=== PATIENT | female | born 1935 | race Caucasian/White ===

== ENCOUNTER → 2023-08-16 08:54 | Outpatient (REF) | payer MEDICARE, SELFPAY ==
[2023-08-16 19:36] LABS: Blood Urea Nitrogen 17 mg/dl (7-17); Calcium 9.5 mg/dl (8.4-10.2); Carbon Dioxide 25 mmol/L (22-30); Chloride 101 mmol/L (98-107); Glucose 86 mg/dl (70-99); Potassium 4.2 mmol/L (3.5-5.1); Sodium 136 mmol/L (135-145); eGFR > 60.00
== END ==
LOC: CLAB 08:54
PROVIDERS: ATTENDING PHYSICIAN Internal Medicine Rheumatology; FAMILY PHYSICIAN Family Medicine
DX: M81.0 Age-related osteoporosis without current pathological fracture (principal); Z79.899 Other long term (current) drug therapy
CPT/HCPCS: 80048

== ENCOUNTER → 2023-09-21 15:20 | Outpatient (REF) | payer MEDICARE, SELFPAY | LOC: RAD 15:20 | PROVIDERS: ATTENDING PHYSICIAN Nurse Practitioner; FAMILY PHYSICIAN Family Medicine | DX: N39.0 Urinary tract infection, site not specified (principal); R33.8 Other retention of urine; N81.12 Cystocele, lateral | CPT/HCPCS: 76770; 76856 ==

== ENCOUNTER 2024-06-10 13:51 | Inpatient (IN) | payer MEDICARE, SELFPAY ==
[2024-06-10] VITALS (14 sets, daily range): BP systolic 108–143; BP diastolic 61–79; BMI 32.0; BMI 31.7
--- NOTE | 2024-06-10 08:42 | ED.GENMED ---
History of Present Illness
General
Chief Complaint: Chest Pain
Source: patient
Exam Limitations: none
Time Seen by Provider: 06/10/24 08:33
History of Present Illness
History of Present Illness:
89-year-old female with history of A-fib on Eliquis, furosemide diltiazem presents with the onset of epigastric pain chest pain nausea vomiting diarrhea since last evening. Denies a fever. No known sick contacts. She presents from home where she
lives by herself. The pain in her chest is in the center of her chest that radiates to the back. She has not missed any doses of her Eliquis. She has a prior history of cholecystectomy. No blood in vomit or stool.
Past History
Past History
ED Past Medical History: Arrthythmia (irregular heart beat), HTN, Hypercholesterolemia and Other (Sarcoidosis, PMR, fibromyalgia, kidney tumor, cataracts, pancreatitis,, back pain, fractured vertebrae, rheumatoid arthritis, pulmonary emboli)
ED Past Surgical History: Appendectomy, Cholecystectomy, Orthopedic (back and hip surgery) and Other (Partial right nephrectomy, ERCP, cataract surgery)
Social History
Tobacco: Non-smoker
Alcohol: None
Drug: None
Personal:
Living: alone
Employment: Retired
Phy Exam
Physical Exam
Physical Exam:
General: Uncomfortable appearing female no acute respiratory distress
HEENT: Normocephalic atraumatic neck is supple heart: Regular rate and rhythm
Lungs: Clear no wheeze
Abdomen is soft diffusely tender mild guarding no rebound tenderness
Musculoskeletal exam: Patient is tender over the right posterior lateral chest wall
Extremities: No cyanosis
Scores
Heart Score for Chest Pain Patients
STEMI patient?: No
History: Slightly or Non-Suspicious
ECG: Normal
Age: >/= 65 years
Risk Factors: 1 or 2 Risk Factors
Troponin: </= Normal Limit
Heart Score for Chest Pain Patients: 3
Heart Score Risk: 2.5% MACE over next 6 weeks
Course
Orders/Labs/Results
Orders:
Orders
06/10/24 08:18
EKG [Electrocardiogram (*1)] Urgent
Reason for Study: Chest Pain
EKG- Treatment ONCE
06/10/24 08:40
Norovirus by PCR Urgent
[facility] Source: Feces/Stool
Specimen Description:
STOOL [C difficile Antigen & Toxins] Urgent
[facility] Source: Feces/Stool
Specimen Description:
Stool Culture Urgent
[facility] Source: Feces/Stool
Specimen Description:
Ondansetron Injectable [Zofran] 4 mg IV NOW STA
06/10/24 08:41
CT Abd/pelvis W Iv Cont Urgent
Comment:
Reason For Exam: abdominal pain
CR Chest - 2 Views Urgent
Comment:
Reason For Exam: right posterior chest wall pain
06/10/24 08:42
0.9% Sodium Chloride 500 ml [Nss] 500 ml IV BOLUS
06/10/24 08:54
Complete Blood Count/With Diff Urgent
Comprehensive Metabolic Panel Urgent
Lipase Urgent
Troponin I Urgent
06/10/24 11:40
Troponin I Urgent
06/10/24 12:49
Acetaminophen [Tylenol] 650 mg PO NOW STA
Abnormal Lab Results
06/10/24 06/10/24
08:54 11:40
WBC 18.7 H 10^3/uL
(4.8-10.8)
RBC 4.08 L 10^6/uL
(4.20-5.40)
MCHC 32.6 L g/dL
(33.0-37.0)
Abs Immat Gran (auto) 0.1 H 10^3/uL
(0-0.05)
Absolute Neuts (auto) 17.4 H 10^3/uL
(1.4-6.5)
Absolute Lymphs (auto) 0.4 L 10^3/uL
(1.2-3.4)
Absolute Monos (auto) 0.7 H 10^3/uL
(0.1-0.6)
Neutrophils % 93.3 H %
(42.2-75.2)
Lymphocytes % 2.0 L %
(20.5-51.1)
BUN 38 H mg/dl
(7-17)
Glucose 167 H mg/dl
(70-99)
Troponin I 0.047 H* ng/ml 0.058 H* ng/ml
Total Protein 5.9 L g/dl
(6.3-8.2)
06/10/24 08:54
06/10/24 08:54
Vital Signs
Initial and Last Documented VS:
Initial Vital Signs
Temp Pulse Resp BP Pulse Ox
98.1 F 74 20 138/77 97
06/10/24 08:26 06/10/24 08:26 06/10/24 08:26 06/10/24 08:26 06/10/24 08:26
Last Documented Vital Signs
Temp Pulse Resp BP Pulse Ox
98.1 F 80 17 119/73 97
06/10/24 08:26 06/10/24 11:37 06/10/24 10:00 06/10/24 11:37 06/10/24 11:37
MDM/Problems Addressed
Differential Diagnosis Includes:
Nausea vomiting diarrhea with abdominal and chest pain. Consider viral illness norovirus testing pending. Will check troponin lipase chest x-ray and CT of abdomen. Other items in differential could include bowel obstruction, reflux, electrolyte
abnormality.
Treat with NS, zofran.
EKG shows sinus rhythm with sinus arrhythmia with a rate of 73
*Critical Care Note
Total Time (30-74mins, 75-104mins- exclusive of procedures): Not Applicable
Update Note
Update Note:
X-ray patient reevaluated nausea has improved but still notes slight chest pain and headache. Troponin initially 0.048 which increased to 0.058. No stool culture provided at this point. Will admit to hospital with chest pain, elevated troponin in
the setting of likely GI viral illness
ED Attending Note
-
Portions of this chart may have been created with voice recognition software.� Occasional wrong word or��sound alike� substitutions may have occurred due to the inherent limitations of voice recognition software.
Discharge Plan
Departure
Patient Disposition: Admit
Date of Disposition: 06/10/24
Time of Disposition: 12:50
Admit to: Telemetry
Presentation/result/management discussed w/ accepting MD/DO: Hospitalist
Discharge Problem:
Chest pain
Prescriptions:
No Action
gabapentin [Neurontin] 600 MG tablet
600 mg PO HS
metoprolol tartrate 100 MG tablet
100 mg PO BID
prednisone 5 MG tablet
5 mg PO DAILY
rosuvastatin 5 MG tablet
5 mg PO QPM
losartan 50 mg Tablet
100 mg PO DAILY
diltiazem HCl 180 mg Capsule,Extended Release 24 Hr
180 mg PO HS
ergocalciferol (vitamin D2) 1,250 mcg (50,000 unit) Capsule
1,250 mcg PO CASTILLO
hydroxychloroquine 200 mg Tablet
200 mg PO QPM
Eliquis 2.5 mg Tablet
2.5 mg PO BID Qty: 60 0RF
furosemide [Lasix] 40 mg Tablet
80 mg PO MOWEFR@0800
furosemide [Lasix] 40 mg Tablet
40 mg PO SUTUTHSA@0800
methotrexate sodium 2.5 mg Tablet
10 mg PO CASTILLO@0800
folic acid 1 mg Tablet
1 mg PO DAILY
Referrals:
Valentino Rush DO [Family Provider] -
Interventions
Interventions:
*Risk Screen - Suicide Last Done: 06/10/24 08:26
*General Assessment Last Done: 06/10/24 08:40
*Neglect/Abuse Screening Last Done: 06/10/24 08:26
*ED COVID-19 Vaccine History Last Done: 06/10/24 08:26
ED- Cardiac Assessment Last Done: 06/10/24 08:40
Discharge Date and Time
Print Language: SURINAMESE
[2024-06-10] MEDS: NSS 500 IV (08:53)
[2024-06-10] MEDS: ZOFRAN 4 MG IV (08:53)
[2024-06-10 09:05] LABS: % Basophils 0.1 % (0-2); % Eosinophils 0.3 % (0-6); % Immature Granulocytes 0.4 % (0-0.5); % Monocytes 3.9 % (1.7-9.3); % Neutrophils 93.3 % (42.2-75.2); Absolute Eosinophils 0.1 10^3/uL (0-0.7); Absolute Immature Granulocytes 0.1 10^3/uL (0-0.05); Absolute Lymphocytes 0.4 10^3/uL (1.2-3.4); Absolute Monocytes 0.7 10^3/uL (0.1-0.6); Absolute Neutrophils 17.4 10^3/uL (1.4-6.5); Hematocrit 38.4 % (37.0-47.0); Hemoglobin 12.5 g/dL (12.0-16.0); Mean Corp Hgb Conc. 32.6 g/dL (33.0-37.0); Mean Corpuscular Hgb 30.6 pg (27.0-31.0); Mean Corpuscular Volume 94.1 fL (81.0-99.0); Mean Platelet Volume 9.2 fL (7.4-10.4); Nucleated Red Blood Cells % 0 %; Platelet Count 228 10^3/uL (130-400); Red Blood Cell Count 4.08 10^6/uL (4.20-5.40); Red Cell Dist. Width 14.5 % (11.5-14.5); White Blood Cell Count 18.7 10^3/uL (4.8-10.8)
[2024-06-10 09:22] LABS: ALT (SGPT) 29 U/L (0-35); AST (SGOT) 30 U/L (14-36); Albumin 3.9 g/dl (3.5-5.0); Alkaline Phosphatase 84 U/L (38-126); Blood Urea Nitrogen 38 mg/dl (7-17); Calcium 8.6 mg/dl (8.4-10.2); Carbon Dioxide 24 mmol/L (22-30); Chloride 105 mmol/L (98-107); Estimated Creatinine Clearance 46 ml/min; Glucose 167 mg/dl (70-99); Lipase 131 U/L (23-300); Sodium 138 mmol/L (135-145); Total Bilirubin 0.7 mg/dl (0.2-1.3); Total Protein 5.9 g/dl (6.3-8.2); eGFR > 60.00
[2024-06-10 09:33] LABS: Troponin I 0.047 ng/ml
[2024-06-10 12:32] LABS: Troponin I 0.058 ng/ml
[2024-06-10] MEDS: TYLENOL 650 MG PO (12:52)
--- NOTE | 2024-06-10 13:10 | HPS.HSE ---
Family Physician
-
Family Physician: Valentino Rush
Chief Complaint
-
N/V/D
CHEST PAIN/SOB
History of Present Illness
89-year-old female with history of A-fib on Eliquis, polymyalgia rheumatica, hyperlipidemia, CHF, hypertension presented to us with epigastric pain associate with nausea vomiting diarrhea since last night. Patient denied any hematemesis or bloody
diarrhea. Patient was also having chest pain radiating to her right shoulder, back associate with short of breath . Patient denied any headache, dizziness, syncope patient denied any .dysuria hematuria .Denies a fever. No known sick contacts.
CT abdomen pelvis with no acute findings. Patient received Tylenol, normal saline, Zofran in ER. Admitting for further management
Medical History
Past Medical History
Past Medical History: Reports Other
Additional Past Medical History:
Atrial flutter
CHF
Neuropathy
Hypertension
Osteopenia/osteoporosis
Hyperlipidemia
Past Surgical History: Reports Other
Additional Past Surgical History:
Cholecystectomy
Partial hysterectomy
Tubal ligation
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
Right knee replacement
Carpal tunnel right wrist surgery
Laminectomy
Appendectomy
Social History
Tobacco: Non-smoker
Alcohol: None
Drug: None
Personal: Single
Living: Alone
Family History
Family History: Not pertinent
Allergies / Home Medications
Allergies reflects when Allergies were last updated in [facility].
Home Medications with original date entered in [facility]
Allergy/Medication List:
Allergies
Allergy/AdvReac Type Severity Reaction Status Date / Time
codeine AdvReac bp goes Verified 06/10/24 08:32
down
meperidine HCl [From Demerol] AdvReac bp goes Verified 06/10/24 08:32
down
Home Medications
gabapentin 600 mg tablet (Neurontin) 600 mg PO HS 10/20/14
metoprolol tartrate 100 mg tablet 100 mg PO BID 10/20/14
prednisone 5 mg tablet 5 mg PO DAILY 10/20/14
rosuvastatin 5 mg tablet 5 mg PO QPM 10/17/15
diltiazem HCl 180 mg capsule,24 hr,extended release 180 mg PO HS 06/17/23
ergocalciferol (vitamin D2) 1,250 mcg (50,000 unit) capsule 1,250 mcg PO CASTILLO 06/17/23
hydroxychloroquine 200 mg tablet 200 mg PO QPM 06/17/23
losartan 50 mg tablet 100 mg PO DAILY 06/17/23
apixaban 2.5 mg tablet (Eliquis) 2.5 mg PO BID #60 tabs 06/20/23
folic acid 1 mg tablet 1 mg PO DAILY 06/10/24
furosemide 40 mg tablet (Lasix) 40 mg PO SUTUTHSA@0806/10/24
furosemide 40 mg tablet (Lasix) 80 mg PO MOWEFR@0800 06/10/24
methotrexate sodium 2.5 mg tablet 10 mg PO CASTILLO@79906/10/24
Review of Systems
-
Constitutional: Reports No Symptoms
EENT: Reports No Symptoms
Respiratory: Reports Trouble Breathing
Cardiac: Reports Chest Pain
Abdomen/GI: Reports Abdominal Pain, Nausea, Vomiting and Diarrhea
: Reports No Symptoms
Musculoskeletal: Reports No Symptoms
Skin: Reports No Symptoms
Neurological: Reports No Symptoms
Endocrine: Reports No Symptoms
Hematologic/Lymphatic: Reports No Symptoms
Psych: Reports No Symptoms
Physical Exam
Vital Signs
Vital Signs
Temp Pulse Resp BP Pulse Ox
98.1 F 74 17 143/77 97
06/10/24 08:26 06/10/24 12:45 06/10/24 10:00 06/10/24 12:00 06/10/24 12:45
Physical Exam
General: Well Developed, Well Nourished and No Apparent Distress
HEENT: NormoCephalic, Moist mucous membranes and Atraumatic
Respiratory: Clear
Cardiac: S1/S2 and Regular Rhythm; No Murmur or Rub
GI: Soft, Non Tender, Non Distended and Normal Bowel Sounds; No Organomegaly
Rectal: Deferred by Provider
Musculoskeletal: No Clubbing, No Cyanosis and No Edema
Skin: No Rash
Neuro: AO x 3 and Nonfocal/grossly intact
Psych: Calm
Laboratory Results
-
06/10/24 08:54
06/10/24 08:54
Laboratory Results
Total Bilirubin 0.7 mg/dl (0.2-1.3) 06/10/24 08:54
AST 30 U/L (14-36) 06/10/24 08:54
ALT 29 U/L (0-35) 06/10/24 08:54
Alkaline Phosphatase 84 U/L (38-126) 06/10/24 08:54
Troponin I 0.058 ng/ml H* 06/10/24 11:40
Lipase 131 U/L (23-300) 06/10/24 08:54
Data Reviewed
-
CT Scan: Report Reviewed by me
Lab Data: Labs Reviewed by me
Impression/Plan
-
# Nausea vomiting diarrhea likely gastroenteritis
-WBC 18.7
-CT abdomen pelvis with impression of Aortic valvular calcifications are present which appear moderate. Please correlate with any clinical signs or symptoms that would suggest significant aortic stenosis.Status post cholecystectomy. Intrahepatic
biliary ductal air, stable. Mild dilation of the common bile duct, stable, and likely physiologic, with normal liver function tests today.Small central hiatal hernia.Pancreatic atrophy.Colonic diverticula with no CT evidence for diverticulitis.At
T12-L1, mild anterior loss of height of the vertebral bodies with sclerosis of the adjacent endplates at the T12-L1 disc space. These findings are new from MRI of the lumbar spine March 16, 2021. Timeframe of these mild compression deformities
is uncertain, although new since 2020. Please correlate with any symptoms to suggest acute to subacute compression fractures. Additionally, there is posterior calcified disc material at T12-L1, which contributes to thecal sac compression and
possibly a component of central canal stenosis.
-Stool for C. difficile, norovirus, culture
-Clear liquid diet, advance as tolerated
-Zofran as needed for nausea vomiting
# Chest pain rule out NSTEMI
-Troponin elevated 0.058
-EKG with sinus rhythm with marked sinus arrhythmia
-Continue to trend Trope
-cards consulted.
# History of atrial fibs on Eliquis
-Cardizem continued
# history diastolic CHF
Hold Lasix monitor I/O
-Strict MARYJANE, daily weight
# PE history
-On Eliquis
# Polymyalgia rheumatica
on chronic prednisone 5 mg daily, gabapentin 600 mg at bedtime
# sarcoidosis
Continue Plaquenil
# HLD
continue Crestor
# Essential HTN
continue losartan, metoprolol 100 mg twice daily with hold parameters
#neurogenic bladder
#straight cath 4 times a daily
# GERD
DVT ppx: Eliquis
Code: DNR
[2024-06-10 13:45] LABS: COVID-19 Antigen Negative (Negative)
--- NOTE | 2024-06-10 14:24 | W.PN.UPDATE ---
Update Note
Progress Note Update
This is an addendum to the H&P written by Briseida Cifuentes on 06/10/2024. Patient seen examined independently with [employer].
89-year-old female past medical history of paroxysmal atrial fibrillation on Eliquis, diastolic CHF, pulm embolism, polymyalgia rheumatica, sarcoidosis, hyperlipidemia, hypertension, GERD, presenting with vomiting and diarrhea since last evening as
well as chest pain which radiates to the back with shortness of breath.
Hemodynamically normal. Patient arrives in A-fib without RVR.
Chest x-ray unremarkable. CT abdomen pelvis no acute pathology.
On examination chest is tender to palpation so likely this is from vomiting rather than cardiac.
Presentation consistent with acute gastroenteritis now improving. Stool studies sent. Clear liquid diet. Hold Lasix. Hold fluids due to history of heart failure. Trend troponins. Cardiology consulted.
--- NOTE | 2024-06-10 15:29 | CON.CAR ---
Addendum entered and electronically signed by Mina Schmitz MD 06/10/24 17:49:
Attending addendum:
Primary Cardiology: Dr. Javy Monae, [facility]
Primary Rheum: [facility], JULIO CÉSAR Farr
This is an 89 y/o female with a PMH notable for PAF and remote PE on chronic oral anticoagulation with apixaban 2.5 mg po bid. She has a history of cardiac and pulmonary sarcoidosis and chronic diastolic heart failure and [facility] Palafox
[facility] She has polymyalgia rheumatica on chronic steroid. She presented to following the onset of nausea and vomiting and diarrhea beginning last evening at approximately 8 pm. Symptoms lasted throughout the night
and she was brought to [facility] for evaluation. She experienced some chest discomfort on 3 occasions over the past 3-4 months. Symtpoms typically happen at rest with chest pressure to the right shoulder, jaw, ear and some shortness of breath. Her
troponin measured just just above normal range and cardiology consult has been requested. Troponin 0.047 ng/ml and 3-hr later measured 0.058 ng/ml. She was normal throughout the day yesterday. She lives independently cooking, cleaning, grocery
shopping, and still drive. No chest pain had been noted earlier in the day or the preceding day. She had generally been feeling well. She has noted more episodes of atrial fibrillation and her metoprolol dose was recently doubled to 100 mg p.o.
twice daily per her regular explosive operator. Her furosemide dose was also increased to 40 mg x 4 days/week and 40 mg p.o. twice daily x 3 days/week. She has noted that her weight has come down since increasing the furosemide and that her breathing is
somewhat improved.
-11/03/2023: Echocardiogram: [facility]: LV: Normal size with mild concentric LVH. EF estimated at 58%. Grade 2 diastolic dysfunction. RV: Normal, LA: Moderately dilated, RA: Moderately dilated, MV: Mild leaflet thickening with
moderate MAC and moderate MR. AV: Trileaflet. Moderate thickening with mild . Mild AI. Aortic valve mean gradient was not listed on this report. TV: Moderate TR with estimated PAP 36 mmHg
She had a recent stress at [facility] (do not have these records).
Weights at [facility]:
-05/13/2024: 168 lbs
-04/01/2024: 167 lbs
-02/29/2024: 165 lbs
-12/27/2023: 170 lbs
PE:
Gen: Awake, alert, oriented. NAD. Conversant and pleasant
HEENT: NC/AT, sclera anicteric
Lungs: Clear to base bilaterally
CV: Reg rate and rhythm. Soft I/ murmur at USB and LLSB
Abd: Soft. Bowel sounds present
Ext: trace edema Lt > rt
IMPRESSION/RECOMMENDATIONS
-Acute gastroenteritis:
slowly improving
Careful with IV rehydration given borderline volume status
-Borderline troponin 0.047 and 0.058 ng/ml
Not sure what to make of these low level troponin elevation
Would probably treat conservatively
Check echocardiogram
- Aortic stenosis: Mild by last echo about 9 months ago
Repeat echo
- Paroxysmal atrial fibrillation
Monitoring
Continue oral apixaban
Continue cardizem and oral beta teri
- Prior DVT/PE:
On oral anticoag
Original Note:
Consultation
Consultation Request
Date/Time Consultation Requested: 06/10/2024,
Date/Time Consultation Performed: 06/10/2024, 1530
Requesting Provider: MATTHEW Collado
Performing Provider: MATTHEW Walton for Dr. Lorenzo
Reason for Consultation: Chest pain, atrial fibrillation
Medical History
-
Chief Complaint: Chest pain, radiating to right shoulder
History of Present Illness:
89-year-old female with past medical history of paroxysmal atrial fibrillation (on Eliquis), hypertension, hyperlipidemia, diastolic heart failure, sarcoidosis (cardiac and lung involvement per patient), pulmonary embolism, polymyalgia rheumatica
who presented to the ED this morning with epigastric pain associated with nausea, vomiting, diarrhea as well as chest pressure radiating into her right shoulder, jaw, ear, and back with associated shortness of breath. She reports last night around
8 PM she started noticing symptoms of atrial fibrillation which she confirmed with looking at her Apple Watch. She then developed nausea, vomiting, and diarrhea and was up all night with symptoms, not able to leave the bathroom. She presented to
the ED for evaluation this morning due to chest pressure/tightening radiating from the center of her chest to her right shoulder, right ear, lasting less than an hour. She has had 2 other similar episodes of chest pressure with radiation over the
past few months. Episodes were not exertional. Once occurred while driving.
ER evaluation:
Troponin 0.047--> 0.058
BUN/creatinine 38/0.08, K4.0, WBC 18.7, hemoglobin 12.5
EKG: Normal sinus rhythm with PACs, left axis deviation, cannot rule out anterior infarct, nonspecific T wave abnormality
Chest x-ray: No active pulmonary disease
Abdominal pelvis CT: Aortic valvular calcifications appear moderate
She has followed with explosive operator Dr. Javy Monae at the [facility] for many years. Most recently she was seen on 05/13/2024. Was able to obtain those records.
Had echo 11/03/2023 at [facility]: EF 50%, mild cLVH, grade 2 diastolic dysfunction, moderate MR, mild , mild AI, mild to moderate TR, PASP 36, small pericardial effusion
Had Lexiscan nuclear stress test at [facility] 11/28/2023: No ischemia, EF 77%
At 05/13/2024 visit was thought to be euvolemic on exam on Lasix. Blood pressure was running high and losartan was increased to 100 mg daily. She reported brief episodes of A-fib and was continued on low-dose anticoagulation per hematology. She
tells me she has had increasing A-fib over the past few months and metoprolol was recently doubled to 100 mg twice daily. She is also on cardizem 180 mg daily.
Past medical history:
Paroxysmal atrial fibrillation-on Eliquis 2.5 mg twice daily, diagnosed 04/2019
Hypertension
Heart failure preserved EF
Hyperlipidemia
Rheumatic fever age 13, hospitalized at [facility] for 1 month
Pulmonary embolism-diagnosed 04/2019
Sarcoidosis on Plaquenil
Polymyalgia rheumatica on chronic steroids and gabapentin
Neuropathy
Neurogenic bladder
GERD
Osteopenia/osteoporosis
Cholecystectomy
Partial hysterectomy
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
Right knee replacement
Right carpal tunnel surgery
Laminectomy,
Appendectomy
Past Medical History
Past Medical History: Other (As above)
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
Social History
Tobacco: Non-Smoker
Alcohol: Occasional (rare)
Drug: None
Family History
Family History: Other (Mother of [place]. Sister was first open heart surgery as a child in [place]-'blue baby syndrome')
Allergies / Home Medications
Allergy/AdvReac Type Severity Reaction Status Date / Time
codeine AdvReac bp goes Verified 06/10/24 08:32
down
meperidine HCl [From Demerol] AdvReac bp goes Verified 06/10/24 08:32
down
�Medication �Instructions �Recorded �Confirmed �Type
gabapentin 600 mg tablet 600 mg PO HS 10/20/14 06/10/24 History
(Neurontin)
metoprolol tartrate 100 mg tablet 100 mg PO BID 10/20/14 06/10/24 History
prednisone 5 mg tablet 5 mg PO DAILY 10/20/14 06/10/24 History
rosuvastatin 5 mg tablet 5 mg PO QPM 10/17/15 06/10/24 History
diltiazem HCl 180 mg capsule,24 180 mg PO HS 06/17/23 06/10/24 History
hr,extended release
ergocalciferol (vitamin D2) 1,250 1,250 mcg PO CASTILLO 06/17/23 06/10/24 History
mcg (50,000 unit) capsule
hydroxychloroquine 200 mg tablet 200 mg PO QPM 06/17/23 06/10/24 History
losartan 50 mg tablet 100 mg PO DAILY 06/17/23 06/10/24 History
apixaban 2.5 mg tablet (Eliquis) 2.5 mg PO BID #60 tabs 06/20/23 06/10/24 Rx
folic acid 1 mg tablet 1 mg PO DAILY 06/10/24 06/10/24 History
furosemide 40 mg tablet (Lasix) 40 mg PO SUTUTHSA@0806/10/24 06/10/24 History
furosemide 40 mg tablet (Lasix) 80 mg PO MOWEFR@0800 06/10/24 06/10/24 History
methotrexate sodium 2.5 mg tablet 10 mg PO CASTILLO@0806/10/24 06/10/24 History
Review of Systems
-
History Source: Patient
All other systems: Negative unless noted
Physical Exam
Vital Signs
Temp Pulse Resp BP Pulse Ox
98.1 F 76 17 108/69 97
06/10/24 08:26 06/10/24 15:00 06/10/24 10:00 06/10/24 15:00 06/10/24 15:00
Lab Results
06/10/24 08:54
06/10/24 08:54
Troponin I 0.058 ng/ml H* 06/10/24 11:40
GEN: No distress, awake, Ox3
HEENT: supple, anicteric, mmm
LUNGS: CTA, no wheezes/rales
CV: Reg, S1/S2, no murmur
ABD: soft, BS+, NT/ND
EXT: No edema
NEURO: Gross non-focal
SKIN: No rash
Impression / Plan
-
PCP: Valentino Rush
Primary explosive operator: Javy Monae, [facility]
Impression:
Paroxysmal atrial fibrillation
Acute gastroenteritis
elevated troponin
Heart failure preserved EF
Hypertension
Hyperlipidemia
Pulmonary embolism
Sarcoidosis with cardiac and lung involvement
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
Previous cardiovascular testing:
Echo 11/03/2023 at [facility]: EF 50%, mild cLVH, grade 2 diastolic dysfunction, moderate MR, mild , mild AI, mild to moderate TR, PASP 36, small pericardial effusion
Lexiscan nuclear stress test at [facility] 11/28/2023: No ischemia, EF 77%
Plan:
- Janelle is an 89-year-old female with paroxymsal atrial fibrillation (on low dose Eliquis per her museum guide), hypertension, hyperlipidemia, diastolic heart failure, sarcoidosis (cardiac and lung involvement per patient), rheumatic fever as a
child, pulmonary embolism, polymyalgia rheumatica who presented to the ED this morning with epigastric pain associated with nausea, vomiting, diarrhea as well as chest pressure radiating into her right shoulder, jaw, ear, and back with associated
shortness of breath. She reports last night around 8 PM she started noticing symptoms of atrial fibrillation which she confirmed with looking at her Apple Watch. She then developed nausea, vomiting, and diarrhea and was up all night with symptoms.
She presented to the ED for evaluation this morning due to chest pressure/tightening radiating from the center of her chest to her right shoulder, right ear, lasting less than an hour. Currently chest pain-free. Troponin 0.047 trended to 0.058.
EKG: Normal sinus rhythm, PACs, left axis deviation, cannot rule out anterior OK, nonspecific ST-T wave abnormality.
-Continue to trend troponin
-Check echo-ordered
-Continue Eliquis at outpatient dosing. Continue metoprolol and Cardizem at outpatient doses
-Review of telemetry shows sinus rhythm with frequent PACs. Did not see any sustained A-fib
-admit with telemetry
-Hold diuretic for now given nausea/vomiting/diarrhea
-No acute findings on abdominal CT
Data Reviewed
-
EKG: Tracing Personally Visualized and interpreted
Medical Tests (Nuc Med, Echo etc): Image Personally Visualized and interpreted
Labs: Labs Reviewed by me
Total Time Spent with Patient (in minutes): 30
--- NOTE | 2024-06-10 16:56 | CM ---
Chart reviewed. Patient is here for gastroenteritis. Grandson at bedside. Stays with her operations officer trust department. She lives in a home. She has a 1st floor set up. No BRYAN. She still drives, is independent, uses a rollator and owns a cane. Has an active PCP and
pharmacy. No +SDOHs.
ANTICIPATED DISCHARGE DISPO: Home, when medically cleared.
[2024-06-10 20:21] LABS: Troponin I 0.072 ng/ml
--- NOTE | 2024-06-10 20:44 | EDRN ---
Patients repeat troponin was elevated to 0.072 tiger texted QUALITY AUDITOR who admitted patient to update them, patient had also left floor to go upstairs, layne and updated the nurse who is received the patient.
[2024-06-10] MEDS: ELIQUIS 2.5 MG PO (21:31)
[2024-06-10] MEDS: CARDIZEM CD 180 MG PO (21:31)
[2024-06-10] MEDS: PLAQUENIL 200 MG PO (21:31)
[2024-06-10] MEDS: CRESTOR 5 MG PO (21:32)
[2024-06-10] MEDS: LOPRESSOR 100 MG PO (21:32)
[2024-06-10] MEDS: NEURONTIN 600 MG PO (21:32)
[2024-06-11 01:46] LABS: Urine Albumin Trace (Neg - Trace); Urine Bilirubin Negative (Negative); Urine Character Slightly Cloudy (Clear); Urine Color Yellow; Urine Glucose Negative (Negative); Urine Ketone Negative (Negative); Urine Leukocyte Trace (Negative); Urine Nitrite Positive (Negative); Urine Occult Blood 1+ (Negative); Urine Specific Gravity 1.015 (<1.030); Urine Urobilinogen Negative (Neg - 1+)
[2024-06-11 02:21] LABS: Troponin I 0.071 ng/ml
[2024-06-11 02:22] LABS: Urine Squamous Cell >30 /LPF (Few)
[2024-06-11 02:23] LABS: Urine Amorphous Seen; Urine Bacteria Many (Negative); Urine Yeast Few (Negative)
[2024-06-11 02:24] LABS: Urine White Cell 16-20 /HPF (0-5)
--- NOTE | 2024-06-11 03:31 | PTCARENOTE ---
2100: late entry. Received patient to room via stretcher. Pt oriented to room and floor rountines. Inst telecommunications manager alston. Reviewed handwashing with patient. placed on tele #35. pt tolerating clear liquids. Reviewed poc, pt verb understanding.
--- NOTE | 2024-06-11 03:33 | PTCARENOTE ---
2245 Pt with multiple orders for troponin. discussed with UNDERWRITER MORTGAGE LOAN. UNDERWRITER MORTGAGE LOAN d/c q3hr troponins. next troponin level to be drawn at 0115
[2024-06-11 03:40] VITALS: BP 103/57
[2024-06-11 07:00] VITALS: BP 115/73
[2024-06-11 08:08] LABS: Hematocrit 37.3 % (37.0-47.0); Hemoglobin 11.8 g/dL (12.0-16.0); Mean Corp Hgb Conc. 31.6 g/dL (33.0-37.0); Mean Corpuscular Volume 94.9 fL (81.0-99.0); Mean Platelet Volume 9.3 fL (7.4-10.4); Platelet Count 208 10^3/uL (130-400); Red Blood Cell Count 3.93 10^6/uL (4.20-5.40); Red Cell Dist. Width 14.9 % (11.5-14.5); White Blood Cell Count 7.9 10^3/uL (4.8-10.8)
[2024-06-11 08:39] LABS: Glycohemoglobin (HgbA1c) 6.8 % (4.0-5.6)
[2024-06-11 08:59] LABS: Blood Urea Nitrogen 26 mg/dl (7-17); Calcium 7.7 mg/dl (8.4-10.2); Carbon Dioxide 22 mmol/L (22-30); Chloride 110 mmol/L (98-107); Estimated Creatinine Clearance 60 ml/min; Glucose 81 mg/dl (70-99); HDL Cholesterol 59 mg/dl; LDL Cholesterol, Calculated 55 mg/dl; Potassium 4.1 mmol/L (3.5-5.1); Sodium 140 mmol/L (135-145); Total Cholesterol 131 mg/dl (50-199); Triglyceride 85 mg/dl (10-149); Very Low Density Lipoprotein 17 mg/dl (0-30); eGFR > 60.00
[2024-06-11] MEDS: DELTASONE 5 MG PO (09:57)
[2024-06-11] MEDS: COZAAR 100 MG PO (09:58)
[2024-06-11] MEDS: ELIQUIS 2.5 MG PO ×2 (09:58→20:33)
[2024-06-11] MEDS: LOPRESSOR 100 MG PO ×2 (09:58→20:33)
[2024-06-11 11:00] VITALS: BP 111/70
[2024-06-11 11:26] LABS: Troponin I 0.072 ng/ml
--- NOTE | 2024-06-11 12:45 | CM ---
CM reviewed chart, patient seen bedside. Patient reports she lives alone, would like to see how she is doing closer to discharge regarding need for VN services. TT to Hospitalist for PT orders. CM will continue to follow for all discharge planning
needs.
Plan; home vs home with VN
--- NOTE | 2024-06-11 13:54 | W.PN.HOSP.TC ---
Today's Communication/Plan
-
Holding Lasix for now
Advance diet as tolerated
Out of bed physical therapy
Monitor p.o. intake
Monitor stool frequency
Assessment / Plan
Assessment / Plan
# Nausea vomiting diarrhea likely gastroenteritis 2/2 NOROVIRUS
# Sepsis (leukocytosis, tachycardia, norovirus gastroenteritis)-poa
-WBC 18.7
-CT abdomen pelvis with impression of Aortic valvular calcifications are present which appear moderate. Please correlate with any clinical signs or symptoms that would suggest significant aortic stenosis.Status post cholecystectomy. Intrahepatic
biliary ductal air, stable. Mild dilation of the common bile duct, stable, and likely physiologic, with normal liver function tests today.Small central hiatal hernia.Pancreatic atrophy.Colonic diverticula with no CT evidence for diverticulitis.At
T12-L1, mild anterior loss of height of the vertebral bodies with sclerosis of the adjacent endplates at the T12-L1 disc space. These findings are new from MRI of the lumbar spine March 16, 2021. Timeframe of these mild compression deformities
is uncertain, although new since 2020. Please correlate with any symptoms to suggest acute to subacute compression fractures. Additionally, there is posterior calcified disc material at T12-L1, which contributes to thecal sac compression and
possibly a component of central canal stenosis.
-Fulls. Advance diet as tolerated
-Zofran as needed for nausea vomiting
# Acute nonischemic myocardial injury
-Troponin noted.
-EKG with sinus rhythm with marked sinus arrhythmia
-cards consulted. Patient without any chest pain this morning
# Paroxysmal atrial fibrillation
-Cardizem continued and Eliquis
# Chronic HFpEF
Hold Lasix till p.o. intake improves
- monitor I/O
-Strict MARYJANE, daily weight
# PE history
-On Eliquis
# Polymyalgia rheumatica
on chronic prednisone 5 mg daily, gabapentin 600 mg at bedtime. If patient becomes any hemodynamic instability with hypotension that start stress dose steroids
# sarcoidosis
Continue Plaquenil
# HLD
continue Crestor
# Essential HTN
continue losartan, metoprolol 100 mg twice daily with hold parameters
#neurogenic bladder
#straight cath 4 times a daily
# GERD
DVT ppx: Eliquis
Code: DNR
PT
Anticipated Discharge: 24 - 48 hours
Subjective/Interval History
-
Date of Service: June 11, 2024
Denies any nausea vomiting
States the frequency of diarrhea is decreasing
Denies any abdominal pain
Tolerating some jean jamie
Objective Data
-
Labs:
Laboratory Results
06/11/24
07:20
WBC 7.9
Hgb 11.8 L
Hct 37.3
Plt Count 208
Sodium 140
Potassium 4.1
Chloride 110 H
Carbon Dioxide 22
BUN 26 H
Creatinine 0.6
Glucose 81
Calcium 7.7 L
Vital Signs:
Vital Signs
Temp Pulse Resp BP Pulse Ox
97.9 F 67 20 111/70 96
06/11/24 11:00 06/11/24 11:00 06/11/24 11:00 06/11/24 11:00 06/11/24 11:00
Physical Exam
-
General: Well Developed and No Apparent Distress
HEENT: Normocephalic, Atraumatic and Moist Mucous Membranes
Respiratory: Clear to Auscultation
Cardiac: Regular Rhythm and S1/S2; Negative Murmur, Rub or Gallop
GI: Soft, Nondistended, Normal Bowel Sounds and Tender (mild diffuse. No guarding or rigidity ); Negative Organomegaly
Rectal: Deferred by Provider
Musculoskeletal: No Clubbing, No Cyanosis and No Edema
Skin: Negative Rash
Neuro: Awake, Alert, Oriented, AO x 3, No Motor Deficits and Nonfocal/Grossly Intact
Psych: Calm
Data Reviewed
-
Total Time Spent with Patient (in minutes): 55
--- NOTE | 2024-06-11 14:37 | W.PN.CARDCBS ---
Addendum entered and electronically signed by Addy Mckeon MD 06/11/24 15:09:
I saw and examined the patient.
The Health Services Information Specialist's note was reviewed and I agree with the note.
Comment:
GEN: No distress, awake, Ox3
HEENT: supple, anicteric, mmm
LUNGS: scatt rhonchi
CV: Reg, S1/S2, /6 syst LSB, no gallop
ABD: soft, BS+, NT/ND
EXT: No edema
NEURO: Gross non-focal
SKIN: No rash
Plan:
No chest pains. Weight is overall about the same. She states she is improving. Will review echo today.
Would likely restart Lasix in a.m.
Abnormal troponin is likely nonischemic myocardial injury.
Continue metoprolol, rosuvastatin, and Eliquis.
Original Note:
Today's Communication / Plan
-
echo pending
consider resuming po lasix in AM
no CP
consider OP ischemic evaluation once recovered
Impression / Plan
-
PCP: Valentino Rush
Primary mixer driver: Javy Monae, [facility]
Impression:
Paroxysmal atrial fibrillation
Acute gastroenteritis
Elevated troponin, suspected nonischemic myocardial injury
Heart failure preserved EF
Hypertension
Hyperlipidemia
Pulmonary embolism
Sarcoidosis with cardiac and lung involvement
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
Echo 11/03/2023 at [facility]: EF 50%, mild cLVH, grade 2 diastolic dysfunction, moderate MR, mild , mild AI, mild to moderate TR, PASP 36, small pericardial effusion
Lexiscan nuclear stress test at [facility] 11/28/2023: No ischemia, EF 77%
Plan:
-Presented with acute gastroenteritis which she reports is now much improved
-In the setting of intractable vomiting she had chest discomfort. Reports none in the last 24 hours
-Troponins low-level positive, peak 0.072
-EKG sinus rhythm with PACs and NSSTS
-Echo pending
-consider OP ischemic evaluation through primary mixer driver - Rony
-Continue outpatient Lopressor, Kevin, Eliquis
-Outpatient losartan resumed today.
-Outpatient Lasix presently on hold. She reports no shortness of breath. If blood pressures remain stable and tolerating diet, consider resuming in a.m.
PREADMIT DATA:
-Janelle is an 89-year-old female with paroxysmal atrial fibrillation (on low dose Eliquis per her polarity tester), hypertension, hyperlipidemia, diastolic heart failure, sarcoidosis (cardiac and lung involvement per patient), rheumatic fever as a
child, pulmonary embolism, polymyalgia rheumatica who presented to the ED this morning with epigastric pain associated with nausea, vomiting, diarrhea as well as chest pressure radiating into her right shoulder, jaw, ear, and back with associated
shortness of breath. She reports last night around 8 PM she started noticing symptoms of atrial fibrillation which she confirmed with looking at her Apple Watch. She then developed nausea, vomiting, and diarrhea and was up all night with symptoms.
She presented to the ED for evaluation this morning due to chest pressure/tightening radiating from the center of her chest to her right shoulder, right ear, lasting less than an hour. Currently chest pain-free. Troponin 0.047 trended to 0.058.
EKG: Normal sinus rhythm, PACs, left axis deviation, cannot rule out anterior VT, nonspecific ST-T wave abnormality.
Progress Note - Electro Tech
Subjective
Date of Service: June 11, 2024
No chest discomfort overnight. Reports breathing is stable
Objective
Labs:
06/11/24 07:20
06/11/24 07:20
Labs
Hgb 11.8 g/dL (12.0-16.0) L 06/11/24 07:20
Hct 37.3 % (37.0-47.0) 06/11/24 07:20
Plt Count 208 10^3/uL (130-400) 06/11/24 07:20
PT Cancelled 06/10/24 20:32
INR Cancelled 06/10/24 20:32
APTT Cancelled 06/10/24 20:32
Sodium 140 mmol/L (135-145) 06/11/24 07:20
Potassium 4.1 mmol/L (3.5-5.1) 06/11/24 07:20
BUN 26 mg/dl (7-17) H 06/11/24 07:20
Creatinine 0.6 mg/dL (0.6-1.0) 06/11/24 07:20
Glucose 81 mg/dl (70-99) 06/11/24 07:20
Troponins
06/10/24 06/10/24 06/10/24
08:54 11:40 19:43
Troponin I 0.047 H* 0.058 H* 0.072 H*
06/10/24 06/10/24 06/11/24
20:32 23:32 01:47
Troponin I Cancelled Cancelled 0.071 H*
06/11/24
10:27
Troponin I 0.072 H*
Vital Signs and I&O:
Vital Signs
Temp Pulse Resp BP Pulse Ox
97.9 F 67 20 111/70 96
06/11/24 11:00 06/11/24 11:00 06/11/24 11:00 06/11/24 11:00 06/11/24 11:00
Vital Signs
Temp Pulse Resp BP Pulse Ox
97.9 F 67 20 111/70 96
06/11/24 11:00 06/11/24 11:00 06/11/24 11:00 06/11/24 11:00 06/11/24 11:00
Physical Exam
Physical Exam
GEN: No distress, awake, alert, oriented x3
HEENT: supple, anicteric, mmm, eomi
LUNGS: CTA B/L, no wheezes
CV: Reg, S1/S2, 1/6 syst LSB
ABD: soft, BS+, NT/ND
EXT: No cyanosis, clubbing. trace edema of LLE
NEURO: Gross non-focal
SKIN: Warm, pink, dry. No rash
[2024-06-11 15:00] VITALS: BP 111/71
[2024-06-11] MEDS: CRESTOR 5 MG PO (17:46)
[2024-06-11] MEDS: PLAQUENIL 200 MG PO (17:46)
[2024-06-11 19:10] VITALS: BP 110/65
[2024-06-11] MEDS: CARDIZEM CD 180 MG PO (21:42)
[2024-06-11] MEDS: NEURONTIN 600 MG PO (21:44)
[2024-06-11 23:10] VITALS: BP 134/69
[2024-06-12] VITALS (8 sets, daily range): BP systolic 106–154; BP diastolic 57–91; O2SAT 98; BMI 30.9
[2024-06-12] MEDS: LOPRESSOR 100 MG PO ×2 (08:38→20:26)
[2024-06-12] MEDS: COZAAR 100 MG PO (08:39)
[2024-06-12] MEDS: ELIQUIS 2.5 MG PO ×2 (08:39→20:25)
[2024-06-12] MEDS: DELTASONE 5 MG PO (08:39)
[2024-06-12] MEDS: VISBIOME 1 CAP PO (08:40)
[2024-06-12] MEDS: ZOFRAN 4 MG IV ×2 (08:45→23:05)
[2024-06-12 08:53] LABS: Hematocrit 36.9 % (37.0-47.0); Hemoglobin 11.9 g/dL (12.0-16.0); Mean Corp Hgb Conc. 32.2 g/dL (33.0-37.0); Mean Corpuscular Hgb 30.8 pg (27.0-31.0); Mean Corpuscular Volume 95.6 fL (81.0-99.0); Mean Platelet Volume 9.4 fL (7.4-10.4); Platelet Count 216 10^3/uL (130-400); Red Blood Cell Count 3.86 10^6/uL (4.20-5.40); Red Cell Dist. Width 14.8 % (11.5-14.5); White Blood Cell Count 7.5 10^3/uL (4.8-10.8)
[2024-06-12 09:36] LABS: Blood Urea Nitrogen 22 mg/dl (7-17); Calcium 7.8 mg/dl (8.4-10.2); Carbon Dioxide 22 mmol/L (22-30); Chloride 106 mmol/L (98-107); Estimated Creatinine Clearance 60 ml/min; Glucose 121 mg/dl (70-99); Magnesium 2.5 mg/dl (1.6-2.3); Phosphorus 1.8 mg/dl (2.5-4.5); Potassium 4.1 mmol/L (3.5-5.1); Sodium 135 mmol/L (135-145); eGFR > 60.00
--- NOTE | 2024-06-12 11:57 | W.PN.HOSP.TC ---
Today's Communication/Plan
-
Advanced diet
OOB/PT
monitor po intake
restart lasix
Assessment / Plan
Assessment / Plan
# Nausea vomiting diarrhea likely gastroenteritis 2/2 NOROVIRUS
# Sepsis (leukocytosis, tachycardia, norovirus gastroenteritis)-poa
-CT abdomen pelvis with impression of Aortic valvular calcifications are present which appear moderate. Please correlate with any clinical signs or symptoms that would suggest significant aortic stenosis.Status post cholecystectomy. Intrahepatic
biliary ductal air, stable. Mild dilation of the common bile duct, stable, and likely physiologic, with normal liver function tests today.Small central hiatal hernia.Pancreatic atrophy.Colonic diverticula with no CT evidence for diverticulitis.At
T12-L1, mild anterior loss of height of the vertebral bodies with sclerosis of the adjacent endplates at the T12-L1 disc space. These findings are new from MRI of the lumbar spine March 16, 2021. Timeframe of these mild compression deformities
is uncertain, although new since 2020. Please correlate with any symptoms to suggest acute to subacute compression fractures. Additionally, there is posterior calcified disc material at T12-L1, which contributes to thecal sac compression and
possibly a component of central canal stenosis.
-advanced to LR.
-Stools studies +Norovirus.
-Zofran as needed for nausea vomiting
# Acute nonischemic myocardial injury
-Troponin noted.
-EKG with sinus rhythm with marked sinus arrhythmia
-cards consulted. Patient without any chest pain this morning
# Paroxysmal atrial fibrillation
-Cardizem continued and Eliquis
# Chronic HFpEF
- monitor I/O
-Strict MARYJANE, daily weight
-If tolerating diet consider restarting Lasix in the next 24 hours.
#Hypophosphatemia
-replete phos.
# PE history
-On Eliquis
# Polymyalgia rheumatica
on chronic prednisone 5 mg daily, gabapentin 600 mg at bedtime. If patient becomes any hemodynamic instability with hypotension that start stress dose steroids
# sarcoidosis
Continue Plaquenil
# HLD
continue Crestor
# Essential HTN
continue losartan, metoprolol 100 mg twice daily with hold parameters
#neurogenic bladder
#straight cath 4 times a daily
# GERD
DVT ppx: Eliquis
Code: DNR
PT -?home PT
Anticipated Discharge: Within 24 hours
Subjective/Interval History
-
Date of Service: June 12, 2024
states of some nausea
had 4 loose stools yesterday
willing to try solids today
Objective Data
-
Labs:
Laboratory Results
06/12/24
08:03
WBC 7.5
Hgb 11.9 L
Hct 36.9 L
Plt Count 216
Sodium 135
Potassium 4.1
Chloride 106
Carbon Dioxide 22
BUN 22 H
Creatinine 0.6
Glucose 121 H
Calcium 7.8 L
Vital Signs:
Vital Signs
Temp Pulse Resp BP Pulse Ox
98.6 F 75 20 112/60 99
06/12/24 07:00 06/12/24 08:38 06/12/24 07:00 06/12/24 08:38 06/12/24 07:00
I&O
06/11/24 06/12/24 06/13/24
06:59 06:59 06:59
Intake Total 1290 / 1290
Output Total 150 / 150
Balance 1140 / 1140
Physical Exam
-
General: Well Developed and No Apparent Distress
HEENT: Normocephalic, Atraumatic and Moist Mucous Membranes
Respiratory: Clear to Auscultation
Cardiac: Regular Rhythm and S1/S2; Negative Murmur, Rub or Gallop
GI: Soft, Nontender, Nondistended and Normal Bowel Sounds; Negative Organomegaly
Rectal: Deferred by Provider
Musculoskeletal: No Clubbing, No Cyanosis and No Edema
Skin: Negative Rash
Neuro: Awake, Alert, Oriented, AO x 3, No Motor Deficits and Nonfocal/Grossly Intact
Psych: Calm
Data Reviewed
-
Total Time Spent with Patient (in minutes): 55
[2024-06-12] MEDS: NEUTRA-PHOS POWDER PACKET 250 MG PO ×3 (13:39→21:25)
--- NOTE | 2024-06-12 14:07 | W.PN.CARDCBS ---
Addendum entered and electronically signed by Suma Duncan PA-C 06/12/24 16:42:
Received call back from nursing at Dr. Monae's office regarding Eliquis. His office notes state continue Eliquis 2.5 mg as per hematology�she has history of PE. Notes do not report a history of significant bleeding events. Would consider
increasing Eliquis dosing to 5 mg twice daily
Addendum entered and electronically signed by Addy Mckeon MD 06/12/24 14:30:
I saw and examined the patient.
The Commissioner Of Conciliation's note was reviewed and I agree with the note.
Comment:
GEN: No distress, awake, Ox3
HEENT: supple, anicteric, mmm
LUNGS: CTA, no wheezes/rales
CV: Reg, S1/S2, 1/6 syst LSB, no gallop
ABD: soft, BS+, NT/ND
EXT: No edema
NEURO: Gross non-focal
SKIN: No rash
Plan:
Abdominal symptoms improving. Would restart Lasix in a.m.
Discussed with her need to consider outpatient ischemic evaluation with her primary side seam machine operator Dr. Pacheco.
With her age and weight and creatinine will consider increasing Eliquis to 5 mg p.o. twice daily.
Continue metoprolol and diltiazem.
Original Note:
Today's Communication / Plan
-
Resuming outpatient Lasix in a.m.
Increasing diet
Would consider increasing Eliquis to 5 mg twice daily based on weight and kidney function if no contraindication
Consider outpatient ischemic evaluation
Will arrange outpatient cardiac follow-up
Impression / Plan
-
PCP: Valentino Rush
Primary side seam machine operator: Javy Monae, [facility]
Impression:
Paroxysmal atrial fibrillation
Acute gastroenteritis (norovirus +)
Elevated troponin, suspected nonischemic myocardial injury
Heart failure preserved EF
Hypertension
Hyperlipidemia
Pulmonary embolism
Sarcoidosis with cardiac and lung involvement
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
Echo 11/03/2023 at [facility]: EF 50%, mild cLVH, grade 2 diastolic dysfunction, moderate MR, mild , mild AI, mild to moderate TR, PASP 36, small pericardial effusion
Lexiscan nuclear stress test at [facility] 11/28/2023: No ischemia, EF 77%
ECHO 06/11/2024: EF 60%, mild to moderate MR, mild with peak/mean gradients 21/11 mmHg, IAN 1.6 cm2, trace TR, trace SC, small pericardial effusion
Plan:
-Presented with acute gastroenteritis (tested positive for norovirus) which she reports is now much improved
-She had chest discomfort in the setting of intractable vomiting. Remains chest pain-free for the last 48 hours. She does report some back soreness which is felt to be residual from vomiting
-Troponins peaked at 0.072
-echo with results as above
-Remains in sinus rhythm with PACs, brief atrial tachycardia on review of tele. Continue Lopressor 100 mg twice daily, Cardizem CD1 80 mg nightly, Eliquis 2.5 mg twice daily
-Of note, she is on Eliquis 2.5 mg twice daily as an outpatient. She has history of PE as well as paroxysmal atrial fibrillation. She is 89, however weight greater than 60 kg and creatinine normal. If no contraindication, would consider
increasing dose to 5 mg twice daily
-consider OP ischemic evaluation through primary side seam machine operator - Rony
-Resuming outpatient Lasix in the a.m. Was taking 80 mg on Monday and 40 mg all other days
-Will arrange outpatient follow-up with primary side seam machine operator
-d/w nursing
PREADMIT DATA:
-Janelle is an 89-year-old female with paroxysmal atrial fibrillation (on low dose Eliquis per her production assembler), hypertension, hyperlipidemia, diastolic heart failure, sarcoidosis (cardiac and lung involvement per patient), rheumatic fever as a
child, pulmonary embolism, polymyalgia rheumatica who presented to the ED this morning with epigastric pain associated with nausea, vomiting, diarrhea as well as chest pressure radiating into her right shoulder, jaw, ear, and back with associated
shortness of breath. She reports last night around 8 PM she started noticing symptoms of atrial fibrillation which she confirmed with looking at her Apple Watch. She then developed nausea, vomiting, and diarrhea and was up all night with symptoms.
She presented to the ED for evaluation this morning due to chest pressure/tightening radiating from the center of her chest to her right shoulder, right ear, lasting less than an hour. Currently chest pain-free. Troponin 0.047 trended to 0.058.
EKG: Normal sinus rhythm, PACs, left axis deviation, cannot rule out anterior TN, nonspecific ST-T wave abnormality.
Progress Note - Transaction Advisory Services Manager
Subjective
Date of Service: June 12, 2024
Reports no recurrence of chest pain. Reports some mild nausea. No further diarrhea.
Objective
Labs:
06/12/24 08:03
06/12/24 08:03
Labs
Hgb 11.9 g/dL (12.0-16.0) L 06/12/24 08:03
Hct 36.9 % (37.0-47.0) L 06/12/24 08:03
Plt Count 216 10^3/uL (130-400) 06/12/24 08:03
PT Cancelled 06/10/24 20:32
INR Cancelled 06/10/24 20:32
APTT Cancelled 06/10/24 20:32
Sodium 135 mmol/L (135-145) 06/12/24 08:03
Potassium 4.1 mmol/L (3.5-5.1) 06/12/24 08:03
BUN 22 mg/dl (7-17) H 06/12/24 08:03
Creatinine 0.6 mg/dL (0.6-1.0) 06/12/24 08:03
Glucose 121 mg/dl (70-99) H 06/12/24 08:03
Troponins
06/10/24 06/10/24 06/10/24
08:54 11:40 19:43
Troponin I 0.047 H* 0.058 H* 0.072 H*
06/10/24 06/10/24 06/11/24
20:32 23:32 01:47
Troponin I Cancelled Cancelled 0.071 H*
06/11/24
10:27
Troponin I 0.072 H*
Vital Signs and I&O:
Vital Signs
Temp Pulse Resp BP Pulse Ox
98.4 F 60 18 109/57 97
06/12/24 11:00 06/12/24 11:00 06/12/24 11:00 06/12/24 11:00 06/12/24 11:00
Vital Signs
Temp Pulse Resp BP Pulse Ox
98.4 F 60 18 109/57 97
06/12/24 11:00 06/12/24 11:00 06/12/24 11:00 06/12/24 11:00 06/12/24 11:00
Intake & Output
06/10/24 06/11/24 06/12/24 06/13/24
07:59 07:59 07:59 07:59
Intake Total 1290 / 1290
Output Total 150 / 150
Balance 1140 / 1140
Physical Exam
Physical Exam
GEN: No distress, awake, alert, oriented x3
HEENT: supple, anicteric, mmm, EOMI
LUNGS: CTA bilaterally, no wheezes/rales
CV: Reg, S1/S2, 1/6 syst LSB
ABD: soft, BS+, NT/ND
EXT: No cyanosis, clubbing, edema
NEURO: Gross non-focal
SKIN: Warm, pink, dry. No rash
--- NOTE | 2024-06-12 15:35 | CM ---
CM reviewed chart, patient seen sleeping. Patient positive Norovirus. Per PT, recommending home versus home with PT, will offer VN services to patient. CM will continue to follow for all discharge planning needs.
Plan; home vs home with VN.
[2024-06-12] MEDS: CRESTOR 5 MG PO (18:00)
[2024-06-12] MEDS: PLAQUENIL 200 MG PO (18:01)
[2024-06-12] MEDS: NEURONTIN 600 MG PO (21:23)
[2024-06-12] MEDS: CARDIZEM CD 180 MG PO (21:24)
[2024-06-13 03:05] VITALS: BP 124/68
[2024-06-13 06:00] VITALS: BMI 31.0
[2024-06-13 08:09] VITALS: BP 151/76
[2024-06-13] MEDS: LASIX 40 MG PO (08:25)
[2024-06-13] MEDS: NEUTRA-PHOS POWDER PACKET 250 MG PO ×3 (08:25→17:13)
[2024-06-13] MEDS: VISBIOME 1 CAP PO (08:25)
[2024-06-13] MEDS: ELIQUIS 2.5 MG PO ×2 (08:25→19:42)
[2024-06-13] MEDS: LOPRESSOR 100 MG PO ×2 (08:26→19:42)
[2024-06-13] MEDS: DELTASONE 5 MG PO (08:26)
[2024-06-13] MEDS: COZAAR 100 MG PO (08:26)
[2024-06-13 08:37] LABS: Hematocrit 37.7 % (37.0-47.0); Hemoglobin 12.2 g/dL (12.0-16.0); Mean Corp Hgb Conc. 32.4 g/dL (33.0-37.0); Mean Corpuscular Hgb 30.3 pg (27.0-31.0); Mean Corpuscular Volume 93.8 fL (81.0-99.0); Mean Platelet Volume 9.5 fL (7.4-10.4); Platelet Count 247 10^3/uL (130-400); Red Blood Cell Count 4.02 10^6/uL (4.20-5.40); Red Cell Dist. Width 14.6 % (11.5-14.5); White Blood Cell Count 8.8 10^3/uL (4.8-10.8)
[2024-06-13 09:11] LABS: Blood Urea Nitrogen 21 mg/dl (7-17); Calcium 8.3 mg/dl (8.4-10.2); Carbon Dioxide 24 mmol/L (22-30); Chloride 105 mmol/L (98-107); Estimated Creatinine Clearance 60 ml/min; Glucose 107 mg/dl (70-99); Potassium 4.6 mmol/L (3.5-5.1); Sodium 136 mmol/L (135-145); eGFR > 60.00
--- NOTE | 2024-06-13 11:57 | W.PN.HOSP.TC ---
Today's Communication/Plan
-
monitor diet tolerance
start lasix home regimen
start dispo process
Assessment / Plan
Assessment / Plan
# Nausea vomiting diarrhea likely gastroenteritis 2/2 NOROVIRUS
# Sepsis (leukocytosis, tachycardia, norovirus gastroenteritis)-poa
-CT abdomen pelvis with impression of Aortic valvular calcifications are present which appear moderate. Please correlate with any clinical signs or symptoms that would suggest significant aortic stenosis.Status post cholecystectomy. Intrahepatic
biliary ductal air, stable. Mild dilation of the common bile duct, stable, and likely physiologic, with normal liver function tests today.Small central hiatal hernia.Pancreatic atrophy.Colonic diverticula with no CT evidence for diverticulitis.At
T12-L1, mild anterior loss of height of the vertebral bodies with sclerosis of the adjacent endplates at the T12-L1 disc space. These findings are new from MRI of the lumbar spine March 16, 2021. Timeframe of these mild compression deformities
is uncertain, although new since 2020. Please correlate with any symptoms to suggest acute to subacute compression fractures. Additionally, there is posterior calcified disc material at T12-L1, which contributes to thecal sac compression and
possibly a component of central canal stenosis.
-advanced to LR.
-Stools studies +Norovirus.
-Zofran as needed for nausea vomiting
# Acute nonischemic myocardial injury
-Troponin noted.
-EKG with sinus rhythm with marked sinus arrhythmia
-cards consulted. Patient without any chest pain this morning
# Paroxysmal atrial fibrillation
-Cardizem continued and Eliquis on 2.5mg BID at home. Agree w/5mg BID. Await further cards input.
# Chronic HFpEF
- monitor I/O
-Strict MARYJANE, daily weight
-restarted lasix. BP stable.
#Hypophosphatemia
-replete phos.
# PE history
-On Eliquis
# Polymyalgia rheumatica
on chronic prednisone 5 mg daily, gabapentin 600 mg at bedtime. If patient becomes any hemodynamic instability with hypotension that start stress dose steroids
# sarcoidosis
Continue Plaquenil
# HLD
continue Crestor
# Essential HTN
continue losartan, metoprolol 100 mg twice daily with hold parameters
#neurogenic bladder
#straight cath 4 times a daily
# GERD
DVT ppx: Eliquis
Code: DNR
PT -?home PT
Anticipated Discharge: Within 24 hours
Subjective/Interval History
-
Date of Service: June 13, 2024
mild abd discomfort
no nausea
tolerating diet
Objective Data
-
Labs:
Laboratory Results
06/13/24
07:31
WBC 8.8
Hgb 12.2
Hct 37.7
Plt Count 247
Sodium 136
Potassium 4.6
Chloride 105
Carbon Dioxide 24
BUN 21 H
Creatinine 0.6
Glucose 107 H
Calcium 8.3 L
Vital Signs:
Vital Signs
Temp Pulse Resp BP Pulse Ox
97.9 F 72 18 151/76 97
06/13/24 03:05 06/13/24 08:09 06/13/24 08:09 06/13/24 08:09 06/13/24 08:20
I&O
06/12/24 06/13/24 06/14/24
06:59 06:59 06:59
Intake Total 1290 / 1290 2039
Output Total 150 / 150
Balance 1140 / 1140 2039
Physical Exam
-
General: Well Developed and No Apparent Distress
HEENT: Normocephalic, Atraumatic and Moist Mucous Membranes
Respiratory: Clear to Auscultation
Cardiac: Regular Rhythm and S1/S2; Negative Murmur, Rub or Gallop
GI: Soft, Nontender, Nondistended and Normal Bowel Sounds; Negative Organomegaly
Rectal: Deferred by Provider
Musculoskeletal: No Clubbing, No Cyanosis and No Edema
Skin: Negative Rash
Neuro: Awake, Alert, Oriented, AO x 3, No Motor Deficits and Nonfocal/Grossly Intact
Psych: Calm
[2024-06-13 15:22] LABS: Magnesium 2.7 mg/dl (1.6-2.3); Phosphorus 2.6 mg/dl (2.5-4.5)
[2024-06-13] MEDS: CRESTOR 5 MG PO (17:13)
[2024-06-13] MEDS: PLAQUENIL 200 MG PO (17:13)
[2024-06-13 18:45] VITALS: BP 151/99
[2024-06-13] MEDS: NEURONTIN 600 MG PO (19:41)
[2024-06-13] MEDS: CARDIZEM CD 180 MG PO (19:42)
[2024-06-13] MEDS: ZOFRAN 4 MG IV (19:42)
[2024-06-13] MEDS: FLUSH (NSS) 2 FLUSH IV (19:43)
[2024-06-13] MEDS: TYLENOL 650 MG PO (22:10)
[2024-06-13 23:28] VITALS: BP 118/76
[2024-06-14 06:00] VITALS: BMI 30.7
[2024-06-14 07:30] VITALS: BP 135/87
[2024-06-14] MEDS: LOPRESSOR 100 MG PO (07:48)
[2024-06-14] MEDS: LASIX 80 MG PO (07:49)
[2024-06-14] MEDS: ELIQUIS 2.5 MG PO (07:49)
[2024-06-14] MEDS: FOLVITE 1 MG PO (07:49)
[2024-06-14] MEDS: COZAAR 100 MG PO (07:50)
[2024-06-14] MEDS: DELTASONE 5 MG PO (07:50)
[2024-06-14] MEDS: VISBIOME 1 CAP PO (07:50)
--- NOTE | 2024-06-14 10:43 | W.PN.HOSP.TC ---
Today's Communication/Plan
-
home
Assessment / Plan
Assessment / Plan
# Nausea vomiting diarrhea likely gastroenteritis 2/2 NOROVIRUS
# Sepsis (leukocytosis, tachycardia, norovirus gastroenteritis)-poa
-CT abdomen pelvis with impression of Aortic valvular calcifications are present which appear moderate. Please correlate with any clinical signs or symptoms that would suggest significant aortic stenosis.Status post cholecystectomy. Intrahepatic
biliary ductal air, stable. Mild dilation of the common bile duct, stable, and likely physiologic, with normal liver function tests today.Small central hiatal hernia.Pancreatic atrophy.Colonic diverticula with no CT evidence for diverticulitis.At
T12-L1, mild anterior loss of height of the vertebral bodies with sclerosis of the adjacent endplates at the T12-L1 disc space. These findings are new from MRI of the lumbar spine March 16, 2021. Timeframe of these mild compression deformities
is uncertain, although new since 2020. Please correlate with any symptoms to suggest acute to subacute compression fractures. Additionally, there is posterior calcified disc material at T12-L1, which contributes to thecal sac compression and
possibly a component of central canal stenosis.
-advanced to LR and tolerating diet.
-Stools studies +Norovirus.
# Acute nonischemic myocardial injury
-Troponin noted.
-EKG with sinus rhythm with marked sinus arrhythmia
-cards consulted. Patient without any chest pain this morning
# Paroxysmal atrial fibrillation
-Cardizem continued and Eliquis on 2.5mg BID at home. Agree w/5mg BID. Increase dose and pt verbalized understanding for dose adjustment.
# Chronic HFpEF
- monitor I/O
-Strict MARYJANE, daily weight
-restarted lasix. BP stable. No lightheadedness or dizziness
#Hypophosphatemia
-replete phos.
# PE history
-On Eliquis
# Polymyalgia rheumatica
on chronic prednisone 5 mg daily, gabapentin 600 mg at bedtime. If patient becomes any hemodynamic instability with hypotension that start stress dose steroids
# sarcoidosis
Continue Plaquenil
# HLD
continue Crestor
# Essential HTN
continue losartan, metoprolol 100 mg twice daily with hold parameters
#neurogenic bladder
#straight cath 4 times a daily
# GERD
DVT ppx: Eliquis
Code: DNR
PT -home VN
More than 30 minutes spent in discharge including
Final examination of the patient
Summarizing hospital stay
Instructions for continuing care to all relevant caregivers
Preparation of discharge records, prescriptions, and referral forms
Total time spent (in minutes): 53
Anticipated Discharge: Today
Subjective/Interval History
-
Date of Service: June 14, 2024
tolerating diet
no nausea or vomiting
Objective Data
-
Vital Signs:
Vital Signs
Temp Pulse Resp BP Pulse Ox
98.4 F 77 18 135/87 97
06/14/24 07:30 06/14/24 07:30 06/14/24 07:30 06/14/24 07:30 06/14/24 07:50
I&O
06/13/24 06/14/24 06/15/24
06:59 06:59 06:59
Intake Total 2039 960 / 960
Balance 2039 960 / 960
Physical Exam
-
General: Well Developed and No Apparent Distress
HEENT: Normocephalic, Atraumatic and Moist Mucous Membranes
Respiratory: Clear to Auscultation
Cardiac: Regular Rhythm and S1/S2; Negative Murmur, Rub or Gallop
GI: Soft, Nontender, Nondistended and Normal Bowel Sounds; Negative Organomegaly
Rectal: Deferred by Provider
Musculoskeletal: No Clubbing, No Cyanosis and No Edema
Skin: Negative Rash
Neuro: Awake, Alert, Oriented, AO x 3, No Motor Deficits and Nonfocal/Grossly Intact
Psych: Calm
--- NOTE | 2024-06-14 10:56 | W.DCSUMMARY ---
Discharge Summary
Discharge Data
Date of Admission: 06/10/24
Date of Discharge: 06/14/24
-
Pending Results: No
Hospital Course
89-year-old female past medical history of chronic HFrEF, pulmonary embolism, polymyalgia rheumatica, sarcoidosis, hyperlipidemia, hypertension, neurogenic bladder, GERD, atrial fibrillation, presenting from home with weakness. Patient was
complaining of nausea, vomiting and diarrhea. Patient was found to have a norovirus. Patient underwent CT abdomen pelvis -CT abdomen pelvis with impression of Aortic valvular calcifications are present which appear moderate. Please correlate with
any clinical signs or symptoms that would suggest significant aortic stenosis.Status post cholecystectomy. Intrahepatic biliary ductal air, stable. Mild dilation of the common bile duct, stable, and likely physiologic, with normal liver function
tests today.Small central hiatal hernia.Pancreatic atrophy.Colonic diverticula with no CT evidence for diverticulitis.At T12-L1, mild anterior loss of height of the vertebral bodies with sclerosis of the adjacent endplates at the T12-L1 disc space.
These findings are new from MRI of the lumbar spine March 16, 2021. Timeframe of these mild compression deformities is uncertain, although new since 2020. Please correlate with any symptoms to suggest acute to subacute compression fractures.
Additionally, there is posterior calcified disc material at T12-L1, which contributes to thecal sac compression and possibly a component of central canal stenosis. Patient IV fluid was discontinued. Diet was advanced from clears to full's.
Patient was tolerating full liquid diet and was advanced to low residue diet. Patient had a mild bump in troponin and cardiology was consulted. Cardiology recommended outpatient follow-up. Patient Eliquis dose was increased to 5 mg twice daily as
her creatinine is stable and weight is 73 kg.. Patient was tolerating low residue diet. Patient was eval by physical and Occupational Therapy. Patient will be discharged home.
Discharge Plan
-
Patient Disposition: Home with Home Care
Discharge Diagnosis/Procedures: Nausea, vomiting and diarrhea secondary to norovirus
Acute nonischemic myocardial injury
Hypophosphatemia
Dehydration
Condition: Fair
Diet: 2 Gram Sodium and Restrict fluids to 48 oz
Activity: With assistance and As tolerated
Driving Restrictions: As prior to admission
Referrals:
Javy Monae MD [Non-Admitting Privileges] - 07/02/24 10:00 am (At [address], 9th [address] location. Please call with questions. )
Valentino Rush DO [Family Provider] - in less than 1 week
Additional Discharge Medication Instructions: Eliquis dose was increased to 5 mg twice a day from 2.5 mg twice a day.
Prescriptions:
New
Eliquis 5 mg tablet
5 mg PO BID 30 Days Qty: 60 0RF
Continued
gabapentin [Neurontin] 600 MG tablet
600 mg PO HS
metoprolol tartrate 100 MG tablet
100 mg PO BID
prednisone 5 MG tablet
5 mg PO DAILY
rosuvastatin 5 MG tablet
5 mg PO QPM
losartan 50 mg Tablet
100 mg PO DAILY
diltiazem HCl 180 mg Capsule,Extended Release 24 Hr
180 mg PO HS
ergocalciferol (vitamin D2) 1,250 mcg (50,000 unit) Capsule
1,250 mcg PO CASTILLO
hydroxychloroquine 200 mg Tablet
200 mg PO QPM
furosemide [Lasix] 40 mg Tablet
80 mg PO MOWEFR@0800
furosemide [Lasix] 40 mg Tablet
40 mg PO SUTUTHSA@0800
methotrexate sodium 2.5 mg Tablet
10 mg PO CASTILLO@0800
folic acid 1 mg Tablet
1 mg PO DAILY
Discontinued
Eliquis 2.5 mg Tablet
2.5 mg PO BID Qty: 60 0RF
Discharge Orders:
Discharge Patient (As Directed); Ordered 06/14/24
Ordered By: John Saldaña
Discharge Date and Time
Discharge Date/Time: 06/14/24 12:49
Print Language: UPPER SORBIAN
[2024-06-14 12:03] VITALS: BP 133/73
[2024-06-14 12:15] VITALS: BP 133/73; PULSE 71; O2SAT 96
--- NOTE | 2024-06-14 13:46 | CM ---
Pt was discharged to home prior to being seen by CM this morning. I called Janelle at home to discuss VN services. She is declining VN at this time, stating she feels capable of managing at home without services. CM advised if she changes her mind,
she should contact her PCP who can arrange for VN services after discharge.
Plan: Discharge to home with no needs.
== END 2024-06-14 12:49 | disposition home or self-care (01) | DRG 872 ==
LOC: 4 WEST ACU 13:51
PROVIDERS: Nurse Practitioner; Physician Assistant; Registered Nurse; ADMITTING PHYSICIAN Hospitalist; ATTENDING PHYSICIAN Hospitalist; CONSULT PHYSICIAN Nuclear Medicine Nuclear Cardiology; EMERGENCY PHYSICIAN Emergency Medicine; FAMILY PHYSICIAN Family Medicine
DX: A41.9 Sepsis, unspecified organism (principal); I50.42 Chronic combined systolic (congestive) and diastolic (congestive) heart failure; I5A Non-ischemic myocardial injury (non-traumatic); A08.11 Acute gastroenteropathy due to Norwalk agent; M35.3 Polymyalgia rheumatica; D86.9 Sarcoidosis, unspecified; I11.0 Hypertensive heart disease with heart failure; K21.9 Gastro-esophageal reflux disease without esophagitis; N31.9 Neuromuscular dysfunction of bladder, unspecified; Z66 Do not resuscitate; I48.0 Paroxysmal atrial fibrillation; E83.39 Other disorders of phosphorus metabolism; E78.00 Pure hypercholesterolemia, unspecified; Z11.52 Encounter for screening for COVID-19
CPT/HCPCS: 71046; 74177; 80048; 80053; 80061; 81003; 81015; 83036; 83690; 83735; 84100; 84484; 85025; 85027; 87045; 87046; 87324; 87427; 87449; 87798; 87811; 93005; 93306; 96361; 96374; 97162; 97530; 99285; Q9967

== ENCOUNTER 2024-09-15 23:32 | Inpatient (IN) | payer MEDICARE, SELFPAY ==
[2024-09-15 19:03] VITALS: BP 107/75
[2024-09-15 19:30] VITALS: BMI 29.3
--- NOTE | 2024-09-15 19:31 | ED.GENMED ---
History of Present Illness
General
Chief Complaint: Breathing Problem
Source: patient
Exam Limitations: none
Time Seen by Provider: 09/15/24 19:24
History of Present Illness
History of Present Illness:
89-year-old female presents with 5 days worth of head congestion significant cough dark green mucus from her nose. She has a history of heart failure with reduced ejection fraction. She notes some swelling in her legs. She denies measurable fever
at home. She is on Eliquis for history of pulmonary embolism. She has not missed any doses of her Eliquis. She tried Mucinex without significant relief
Past History
Past History
ED Past Medical History: Arrthythmia (irregular heart beat), HTN, Hypercholesterolemia and Other (Sarcoidosis, PMR, fibromyalgia, kidney tumor, cataracts, pancreatitis,, back pain, fractured vertebrae, rheumatoid arthritis, pulmonary emboli)
ED Past Surgical History: Appendectomy, Cholecystectomy, Orthopedic (back and hip surgery) and Other (Partial right nephrectomy, ERCP, cataract surgery)
Social History
Tobacco: Non-smoker
Alcohol: None
Drug: None
Personal:
Living: alone
Employment: Retired
Phy Exam
Physical Exam
Physical Exam:
General: Uncomfortable slightly ill-appearing female no acute respiratory distress but coughing throughout the exam
HEENT: Normocephalic posterior pharynx without erythema no exudate no trismus or drooling neck is supple
Heart: Regular rate and rhythm
Lungs: Clear no wheeze no obvious rales
Abdomen is soft nontender nondistended no guarding or rebound
Extremities: Mild edema bilateral lower extremities
Skin is warm no rash
Scores
Heart Failure Risk
Heart Failure Risk Score: Not Applicable
Course
Orders/Labs/Results
Orders:
Orders
09/15/24 19:07
Electrocardiogram (*1) Urgent
Reason for Study: Other
Other Reason for Exam: Respiratory Distress
Cardiac Monitoring- Treatment ONCE
EKG- Treatment ONCE
IV Insert/Care/Rem.- Treatment PRN
CR Chest - 2 Views Urgent
Comment:
Reason For Exam: respiratory distress
O2 Therapy [RESP] Urgent
Titrate/Wean O2 to maintain O2 sat greater than (%): 93
Special Instructions: TO MAINTAIN CONTINUOUS O2 SATS >/= 93%
Pulse Ox/cont/shift [RESP] Urgent
Quantity: 1
Special Instructions: continuous pulse ox
09/15/24 19:38
COVID-19 Antigen Urgent
Source: Nasal Swab
Complete Blood Count/With Diff Urgent
Comprehensive Metabolic Panel Urgent
NT-proBNP Urgent
Troponin I Urgent
Influenza A+B Rapid Molecular Urgent
[facility] Source: Nasal Swab
Specimen Description:
09/15/24 23:09
CefTRIAXone [Rocephin] 1,000 mg IV NOW STA
Furosemide [Lasix] 40 mg IV NOW STA
Ipratropium/Albuterol Sulfate [Duoneb] 3 ml INH R NOW STA
09/15/24 23:11
Doxycycline Hyclate [Vibramycin] 100 mg 0.9% Sodium Chloride 250 ml [Nss] 250 ml IV NOW
Potassium Chloride Powder [Klor-Con] 20 meq PO NOW STA
Abnormal Lab Results
09/15/24
19:38
RBC 2.92 L 10^6/uL
(4.20-5.40)
Hgb 9.4 L g/dL
(12.0-16.0)
Hct 29.4 L %
(37.0-47.0)
MCV 100.7 H fL
(81.0-99.0)
MCH 32.2 H pg
(27.0-31.0)
MCHC 32.0 L g/dL
(33.0-37.0)
RDW 17.6 H %
(11.5-14.5)
Abs Immat Gran (auto) 0.1 H 10^3/uL
(0-0.05)
Absolute Lymphs (auto) 1.1 L 10^3/uL
(1.2-3.4)
Absolute Monos (auto) 0.9 H 10^3/uL
(0.1-0.6)
Immature Gran % 1.4 H %
(0-0.5)
Lymphocytes % 17.2 L %
(20.5-51.1)
Monocytes % 13.1 H %
(1.7-9.3)
Potassium 3.4 L mmol/L
(3.5-5.1)
BUN 20 H mg/dl
(7-17)
Glucose 104 H mg/dl
(70-99)
Troponin I 0.126 H* ng/ml
Total Protein 5.3 L g/dl
(6.3-8.2)
Albumin 3.4 L g/dl
(3.5-5.0)
09/15/24 19:38
09/15/24 19:38
Vital Signs
Initial and Last Documented VS:
Initial Vital Signs
Temp Pulse Resp BP Pulse Ox
98.1 F 93 28 107/75 97
09/15/24 19:03 09/15/24 19:03 09/15/24 19:03 09/15/24 19:03 09/15/24 19:03
Last Documented Vital Signs
Temp Pulse Resp BP Pulse Ox
98.1 F 78 11 126/101 97
09/15/24 19:03 09/15/24 22:45 09/15/24 22:45 09/15/24 22:27 09/15/24 22:45
MDM/Problems Addressed
Differential Diagnosis Includes:
Cough with sinus congestion consider sinusitis versus pneumonia versus COVID or flu. Will check labs for electrolyte abnormality. Chest x-ray pending to evaluate for pneumonia.
*Critical Care Note
Total Time (30-74mins, 75-104mins- exclusive of procedures): Not Applicable
Update Note
Update Note:
Chest x-ray shows pulmonary edema cardiomegaly and possible pneumonia. Clinically patient describes a productive cough and shortness of breath with upper respiratory symptoms. Will cover for pneumonia with Rocephin and doxycycline Lasix ordered as
well. Discussed with emergency room attending. Will admit to hospital
ED Attending Note
-
Portions of this chart may have been created with voice recognition software.� Occasional wrong word or��sound alike� substitutions may have occurred due to the inherent limitations of voice recognition software.
Discharge Plan
Departure
Patient Disposition: Admit
Date of Disposition: 09/15/24
Time of Disposition: 23:14
Presentation/result/management discussed w/ accepting MD/DO: Hospitalist
Discharge Problem:
CHF (congestive heart failure), Pneumonia
Prescriptions:
No Action
gabapentin [Neurontin] 600 MG tablet
600 mg PO HS
metoprolol tartrate 100 MG tablet
100 mg PO BID
prednisone 5 MG tablet
5 mg PO DAILY
rosuvastatin 5 MG tablet
5 mg PO QPM
losartan 50 mg Tablet
100 mg PO DAILY
diltiazem HCl 180 mg Capsule,Extended Release 24 Hr
180 mg PO HS
ergocalciferol (vitamin D2) 1,250 mcg (50,000 unit) Capsule
1,250 mcg PO CASTILLO
hydroxychloroquine 200 mg Tablet
200 mg PO QPM
furosemide [Lasix] 40 mg Tablet
80 mg PO MOWEFR@0800
furosemide [Lasix] 40 mg Tablet
40 mg PO SUTUTHSA@0800
methotrexate sodium 2.5 mg Tablet
10 mg PO CASTILLO@0800
folic acid 1 mg Tablet
1 mg PO DAILY
Eliquis 5 mg tablet
5 mg PO BID 30 Days Qty: 60 0RF
Referrals:
Valentino Rush DO [Family Provider] -
Interventions
Interventions:
*Risk Screen - Suicide Last Done: 09/15/24 19:03
*General Assessment Last Done: 09/15/24 19:03
*Neglect/Abuse Screening Last Done: 09/15/24 19:03
*ED- Fall Risk Assessment Last Done: 09/15/24 19:03
*ED COVID-19 Vaccine History Last Done: 09/15/24 19:03
ED- Cardiac Assessment Last Done: 09/15/24 20:16
ED- Pulmonary Assessment Last Done: 09/15/24 20:16
Discharge Date and Time
Print Language: BRUNEIAN
[2024-09-15 20:00] VITALS: BP 110/94
[2024-09-15 20:03] LABS: Hematocrit 29.4 % (37.0-47.0); Hemoglobin 9.4 g/dL (12.0-16.0); Mean Corpuscular Hgb 32.2 pg (27.0-31.0); Mean Corpuscular Volume 100.7 fL (81.0-99.0); Mean Platelet Volume 8.9 fL (7.4-10.4); Platelet Count 256 10^3/uL (130-400); Red Blood Cell Count 2.92 10^6/uL (4.20-5.40); Red Cell Dist. Width 17.6 % (11.5-14.5); White Blood Cell Count 6.6 10^3/uL (4.8-10.8)
[2024-09-15 20:05] LABS: COVID-19 Antigen Negative (Negative)
[2024-09-15 20:12] LABS: ALT (SGPT) 21 U/L (0-35); AST (SGOT) 24 U/L (14-36); Albumin 3.4 g/dl (3.5-5.0); Alkaline Phosphatase 82 U/L (38-126); Blood Urea Nitrogen 20 mg/dl (7-17); Calcium 8.9 mg/dl (8.4-10.2); Carbon Dioxide 27 mmol/L (22-30); Chloride 101 mmol/L (98-107); Estimated Creatinine Clearance 43 ml/min; Glucose 104 mg/dl (70-99); Potassium 3.4 mmol/L (3.5-5.1); Sodium 137 mmol/L (135-145); Total Bilirubin 0.6 mg/dl (0.2-1.3); Total Protein 5.3 g/dl (6.3-8.2); eGFR > 60.00
[2024-09-15 20:15] LABS: % Basophils 0.3 % (0-2); % Eosinophils 1.1 % (0-6); % Immature Granulocytes 1.4 % (0-0.5); % Lymphocytes 17.2 % (20.5-51.1); % Monocytes 13.1 % (1.7-9.3); % Neutrophils 66.9 % (42.2-75.2); Absolute Eosinophils 0.1 10^3/uL (0-0.7); Absolute Immature Granulocytes 0.1 10^3/uL (0-0.05); Absolute Lymphocytes 1.1 10^3/uL (1.2-3.4); Absolute Monocytes 0.9 10^3/uL (0.1-0.6); Absolute Neutrophils 4.4 10^3/uL (1.4-6.5); Nucleated Red Blood Cells % 0 %
[2024-09-15 20:27] LABS: NT-proBNP 2100 pg/ml; Troponin I 0.126 ng/ml
[2024-09-15 21:00] VITALS: BP 107/54
[2024-09-15 22:27] VITALS: BP 126/101
[2024-09-15 23:12] VITALS: BP 127/82
--- NOTE | 2024-09-15 23:32 | HPS.HSE ---
Addendum entered and electronically signed by Celeste Garay MD 09/15/24 23:36:
Tylenol/tramadol as needed for back pain secondary to cough.
Original Note:
Family Physician
-
Family Physician: Valentino Rush
Chief Complaint
-
cough
History of Present Illness
89-year-old female past medical history of paroxysmal atrial fibrillation, chronic HFpEF, pulmonary embolism, polymyalgia rheumatica, sarcoidosis, hyperlipidemia, hypertension, neurogenic bladder, GERD, presenting with 5 days of nasal congestion,
productive cough, headaches, sore throat, body aches. No sick contacts. She has been having loose stools. She has chest pain with coughing. She also has back pain with coughing. She has increased swelling in the legs but has lost some weight
recently. She has been having chills. She takes 80 mg of Lasix per day. Her care aide is Dr. Gardner .
She denies smoking or alcohol use.
Medical History
Past Medical History
Past Medical History: Reports Other ( paroxysmal atrial fibrillation, chronic HFpEF, pulmonary embolism, polymyalgia rheumatica, sarcoidosis, hyperlipidemia, hypertension, neurogenic bladder, GERD)
Past Surgical History: Reports Other (Appendectomy, Cholecystectomy, Orthopedic (back and hip surgery) and Other (Partial right nephrectomy, ERCP, cataract surgery))
Social History
Tobacco: Non-smoker
Alcohol: None
Drug: None
Family History
Family History: Not pertinent
Allergies / Home Medications
Allergies reflects when Allergies were last updated in [facility].
Home Medications with original date entered in [facility]
Allergy/Medication List:
Allergies
Allergy/AdvReac Type Severity Reaction Status Date / Time
codeine Allergy bp goes Verified 09/15/24 19:03
down
meperidine HCl [From Demerol] Allergy bp goes Verified 09/15/24 19:03
down
Home Medications
gabapentin 600 mg tablet (Neurontin) 600 mg PO HS 10/20/14
metoprolol tartrate 100 mg tablet 100 mg PO BID 10/20/14
prednisone 5 mg tablet 5 mg PO DAILY 10/20/14
rosuvastatin 5 mg tablet 5 mg PO QPM 10/17/15
diltiazem HCl 180 mg capsule,24 hr,extended release 180 mg PO HS 06/17/23
ergocalciferol (vitamin D2) 1,250 mcg (50,000 unit) capsule 1,250 mcg PO CASTILLO 06/17/23
hydroxychloroquine 200 mg tablet 200 mg PO QPM 06/17/23
losartan 50 mg tablet 100 mg PO DAILY 06/17/23
folic acid 1 mg tablet 1 mg PO DAILY 06/10/24
furosemide 40 mg tablet (Lasix) 40 mg PO SUTUTHSA@0800 06/10/24
furosemide 40 mg tablet (Lasix) 80 mg PO MOWEFR@0806/10/24
methotrexate sodium 2.5 mg tablet 10 mg PO CASTILLO@0806/10/24
apixaban 5 mg tablet (Eliquis) 5 mg PO BID 30 days #60 tabs 06/14/24
Review of Systems
-
History Source: Patient
A 12 point ROS was completed and negative except as noted: Yes
Constitutional: Reports No Symptoms
EENT: Reports No Symptoms
Respiratory: Reports See HPI
Cardiac: Reports See HPI
Abdomen/GI: Reports No Symptoms
: Reports No Symptoms
Musculoskeletal: Reports No Symptoms
Skin: Reports No Symptoms
Neurological: Reports No Symptoms
Endocrine: Reports No Symptoms
Hematologic/Lymphatic: Reports No Symptoms
Psych: Reports No Symptoms
Physical Exam
Vital Signs
Vital Signs
Temp Pulse Resp BP Pulse Ox
98.5 F 79 20 127/82 98
09/15/24 23:12 09/15/24 23:12 09/15/24 23:12 09/15/24 23:12 09/15/24 23:12
Physical Exam
General: Well Developed, Well Nourished and No Apparent Distress
HEENT: NormoCephalic, Moist mucous membranes and Atraumatic
Respiratory: Clear
Cardiac: S1/S2 and Regular Rhythm; No Murmur or Rub
GI: Soft, Non Tender, Non Distended and Normal Bowel Sounds; No Organomegaly
Rectal: Deferred by Provider
Musculoskeletal: No Clubbing, No Cyanosis and No Edema
Skin: No Rash
Neuro: Nonfocal/grossly intact
Laboratory Results
-
09/15/24 19:38
09/15/24 19:38
Laboratory Results
Total Bilirubin 0.6 mg/dl (0.2-1.3) 09/15/24 19:38
AST 24 U/L (14-36) 09/15/24 19:38
ALT 21 U/L (0-35) 09/15/24 19:38
Alkaline Phosphatase 82 U/L (38-126) 09/15/24 19:38
Troponin I 0.126 ng/ml H* 09/15/24 19:38
Data Reviewed
-
Lab Data: Labs Reviewed by me
Old Records: Reviewed
Impression/Plan
-
IMPRESSION:
PLAN:
# Likely community-acquired pneumonia
-Clinically suggestive of pneumonia
-COVID and flu negative
-Ceftriaxone/doxycycline
-Mucinex
#Acute on chronic HFpEF exacerbation
-Cardiac BNP of 2100
-Chest x-ray shows patchy parenchymal opacity within both lower lobes, predominantly linear morphology suggestive of atelectasis, pneumonia is less likely
-Check I's and O's, daily weight
-40 IV Lasix twice daily
-Cardiology consulted
# Nonischemic myocardial injury
-Troponin 0.126
-Trend troponins
-EKG shows sinus rhythm with premature atrial complexes,
# Hypokalemia secondary to late
-Replete potassium
# Macrocytic anemia
-Hemoglobin of 9.4 from 12 point
-Check iron studies, B12 and folate
Paroxysmal atrial fibrillation
-Continue Eliquis
-Continue diltiazem
History of pulmonary embolism
Essential hypertension
-Continue losartan
-Continue metoprolol
Polymyalgia rheumatica
-Continue hydroxychloroquine, methotrexate
Sarcoidosis
Hyperlipidemia
-Continue statin
Neurogenic bladder
-History catheterizes 4 times per day
GERD
DNR/DNI
DVT prophylaxis�Eliquis
Cardiac diet
[2024-09-16] VITALS (7 sets, daily range): BP systolic 93–133; BP diastolic 57–87; BMI 31.8
--- NOTE | 2024-09-16 01:20 | EDRN ---
This RN assisting pt's primary ED nurse, Marcella Medina RN. Called pt's nurse on 4th floor regarding medications not given to pt - medications were removed by Marcella Medina, RN: mariella burton lasix and duoneb. This RN just called
pharmacy and asked that Vibramycin infusion be sent to pt's floor since she is in room 430 now. Call placed to 4th floor to confirm medications were tubed and Vibramycin being sent from pharmacy.
[2024-09-16] MEDS: KLOR-CON 20 MEQ PO (01:29)
[2024-09-16] MEDS: ROCEPHIN 1000 MG IV (01:29)
[2024-09-16] MEDS: LASIX 40 MG IV ×3 (01:30→16:33)
--- NOTE | 2024-09-16 02:00 | PTCARENOTE ---
Patient arrived via stretcher from ED. Patient AAOX3, able to make needs known. Patient pulled over from stretcher to bed. IV flushed and patent. Patient medicated per MAR, assessment documented in flowsheet.
[2024-09-16 02:05] LABS: Troponin I 0.155 ng/ml
[2024-09-16] MEDS: VIBRAMYCIN 260 MG IV (02:59)
[2024-09-16] MEDS: ULTRAM 25 MG PO ×3 (03:00→21:40)
[2024-09-16 07:27] LABS: % Basophils 0.4 % (0-2); % Eosinophils 1.5 % (0-6); % Immature Granulocytes 1.2 % (0-0.5); % Lymphocytes 21.8 % (20.5-51.1); % Monocytes 13.7 % (1.7-9.3); % Neutrophils 61.4 % (42.2-75.2); Absolute Eosinophils 0.1 10^3/uL (0-0.7); Absolute Immature Granulocytes 0.1 10^3/uL (0-0.05); Absolute Lymphocytes 1.5 10^3/uL (1.2-3.4); Absolute Monocytes 0.9 10^3/uL (0.1-0.6); Absolute Neutrophils 4.2 10^3/uL (1.4-6.5); Hematocrit 28.2 % (37.0-47.0); Hemoglobin 9.2 g/dL (12.0-16.0); Mean Corp Hgb Conc. 32.6 g/dL (33.0-37.0); Mean Corpuscular Hgb 32.3 pg (27.0-31.0); Mean Corpuscular Volume 98.9 fL (81.0-99.0); Nucleated Red Blood Cells % 0 %; Platelet Count 255 10^3/uL (130-400); Red Blood Cell Count 2.85 10^6/uL (4.20-5.40); Red Cell Dist. Width 17.2 % (11.5-14.5); White Blood Cell Count 6.8 10^3/uL (4.8-10.8)
[2024-09-16 07:52] LABS: Troponin I 0.129 ng/ml
[2024-09-16 07:58] LABS: ALT (SGPT) 18 U/L (0-35); AST (SGOT) 22 U/L (14-36); Albumin 2.7 g/dl (3.5-5.0); Alkaline Phosphatase 76 U/L (38-126); Blood Urea Nitrogen 14 mg/dl (7-17); Calcium 8.5 mg/dl (8.4-10.2); Carbon Dioxide 28 mmol/L (22-30); Chloride 106 mmol/L (98-107); Estimated Creatinine Clearance 50 ml/min; Glucose 76 mg/dl (70-99); Potassium 3.4 mmol/L (3.5-5.1); Sodium 138 mmol/L (135-145); Total Bilirubin 0.6 mg/dl (0.2-1.3); Total Protein 4.6 g/dl (6.3-8.2); eGFR > 60.00
[2024-09-16] MEDS: MUCINEX 1200 MG PO ×2 (08:54→20:20)
[2024-09-16] MEDS: COZAAR 100 MG PO (08:58)
[2024-09-16] MEDS: ELIQUIS 5 MG PO ×2 (09:00→20:21)
[2024-09-16] MEDS: DELTASONE 5 MG PO (09:00)
[2024-09-16] MEDS: VIBRAMYCIN 100 MG PO ×2 (09:00→21:50)
[2024-09-16] MEDS: LOPRESSOR 100 MG PO ×2 (09:00→20:21)
[2024-09-16] MEDS: FOLVITE 1 MG PO (09:05)
--- NOTE | 2024-09-16 10:17 | CM ---
Addendum entered by Lynnette Riley 09/16/24 10:22:
Needs PT/OT
Original Note:
non destructive evaluation manager reviewed patient's chart and met with patient and patient lives in a 2 story home with no steps to enter, patient has a 1st floor set up with bed and bathroom, patient is independent with adl's and uses a rollator or cane with
ambulation, patient would benefit from PT/OT evaluation.
PCP: Valentino Rush
Pharmacy: [facility]
Plan; Home when stable.
--- NOTE | 2024-09-16 13:06 | CON.CAR ---
Addendum entered and electronically signed by Leyla Mariano DO 09/16/24 17:53:
I saw and examined the patient.
The Liquor Blender's note was reviewed and I agree with the note.
Comment: Patient seen and examined with cardiac PA. Patient came to ER yesterday with URI symptoms for the last 5 days and was admitted with possible PNA and acute HF with consultation to cardiology. Patient says that she started with symptoms
of cough and congestion a week ago last Monday but also noticed increased LE edema over the last 5 days. Interestingly she felt like her weight was going down. She came to the ER and after negative COVID and influenza screens was admitted with
possible community-acquired pneumonia and acute HF. Her BNP was 2100. Her troponin was 0.155. She denies any chest pain. Patient says she has been compliant with her usual dose of Lasix 80 mg daily, but feels that her urine output volume has not
been as high. Denies any increase in salt or fluid intake.
GEN: NAD, AAOx3, Out of bed to chair
HEENT: mmm
LUNGS: Bronchovesicular breath sounds decreased at the bases. No wheezes.
CV: SR on tele. Reg, S1/S2, 1/6 syst LSB
ABD: soft, BS+, NT, ND
EXT: +1-2 B/L LE edema.
Plan:
URI with s congestion/productive cough; chest x-ray, possible pneumonia
-COVID/flu negative
- No leukocytosis; afebrile
- Started on antibiotics per primary.
Heart failure with preserved ejection fraction stable on most recent echocardiogram 06/18 with mild aortic stenosis and mild to moderate mitral Regurgitation and small pericardial effusion
-Initial proBNP 2100
-Continue IV Lasix
-Mildly abnormal cardiac troponin without chest pain likely represents nonischemic elevation
-Will repeat limited 2D echocardiogram to reassess heart function and valvular disease as well as pericardial effusion
-Will try to adjust medications for optimization of goal-directed medical therapy: At this point patient is on Lopressor 100 mg twice daily and can consider transitioning to Toprol-XL. She is currently on diltiazem for history of atrial
fibrillation however if EF is low can consider alternative therapies. Continue losartan. Once more euvolemic would add spironolactone. Closer to hospital discharge can also consider adding SGLT2 inhibitor.
-She has had mildly abnormal troponins both hospitalizations; we discussed outpatient ischemic evaluation
History of paroxysmal atrial fibrillation currently in sinus rhythm
-Continue rhythm control strategy
-Continue Eliquis anticoagulation
h/o PE-Noted
Sarcoidosis with cardiac and lung involvement
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
Original Note:
Consultation
Consultation Request
Date/Time Consultation Requested: 09/16/24 at 0103
Date/Time Consultation Performed: 09/16/24 at 1130
Requesting Provider: Dr. Hackett
Performing Provider: Dr. Mariano
Reason for Consultation: Acute HFpEF, elevated Troponin
Medical History
-
History of Present Illness:
Patient came to ER yesterday with URI symptoms for the last 5 days and was admitted with possible PNA and acute HF with consultation to cardiology. Patient says that she started with symptoms of cough and congestion but also noticed increased LE
edema over the last 5 days. Interestingly she felt like her weight was going down. She came to the ER and after negative COVID and influenza screens was admitted with possible community-acquired pneumonia and acute HF. Her BNP was 2100. Her
troponin was 0.155. She denies any chest pain. Patient says she has been compliant with her usual dose of Lasix 80 mg daily, but feels that her urine output volume has not been as high. Denies any increase in salt or fluid intake.
PMH:
Chronic HFpEF
Mild to mod MR by echo 06/11/24
Mild peak/mean 21/11 mmHg
Paroxysmal atrial fibrillation
Chronic Eliquis OAC
Hypertension
Hyperlipidemia
h/o PE
Sarcoidosis with cardiac and lung involvement
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
Past Medical History
Past Medical History: Other (As above)
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
Social History
Tobacco: Non-Smoker
Alcohol: Occasional (rare)
Drug: None
Family History
Family History: Other (Mother of [place]. Sister was first open heart surgery as a child in [place]-'blue baby syndrome')
Allergies / Home Medications
Allergy/AdvReac Type Severity Reaction Status Date / Time
codeine Allergy bp goes Verified 09/15/24 19:03
down
meperidine HCl [From Demerol] Allergy bp goes Verified 09/15/24 19:03
down
�Medication �Instructions �Recorded �Confirmed �Type
gabapentin 600 mg tablet 600 mg PO HS 10/20/14 09/16/24 History
(Neurontin)
metoprolol tartrate 100 mg tablet 100 mg PO BID 10/20/14 09/16/24 History
prednisone 5 mg tablet 5 mg PO DAILY 10/20/14 09/16/24 History
rosuvastatin 5 mg tablet 5 mg PO QPM 10/17/15 09/16/24 History
diltiazem HCl 180 mg capsule,24 180 mg PO HS 06/17/23 09/16/24 History
hr,extended release
ergocalciferol (vitamin D2) 1,250 1,250 mcg PO CASTILLO 06/17/23 09/16/24 History
mcg (50,000 unit) capsule
hydroxychloroquine 200 mg tablet 200 mg PO QPM 06/17/23 09/16/24 History
losartan 50 mg tablet 50 mg PO DAILY 06/17/23 09/16/24 History
folic acid 1 mg tablet 1 mg PO DAILY 06/10/24 09/16/24 History
furosemide 40 mg tablet (Lasix) 80 mg PO DAILY 06/10/24 09/16/24 History
methotrexate sodium 2.5 mg tablet 10 mg PO CASTILLO@0800 06/10/24 09/16/24 History
apixaban 5 mg tablet (Eliquis) 5 mg PO BID 30 days #60 tabs 06/14/24 09/16/24 Rx
Review of Systems
-
History Source: Patient and Family (daughter in the room)
All other systems: Negative unless noted
Physical Exam
Vital Signs
Temp Pulse Resp BP Pulse Ox
98.6 F 91 17 125/74 97
09/16/24 11:25 09/16/24 11:25 09/16/24 11:25 09/16/24 11:25 09/16/24 11:25
GEN: NAD, AAOx3
HEENT: MMM, EOMI
LUNGS: RA. CTA B/L, no audible wheeze
CV: SR on tele. Reg, S1/S2, 07/01 syst LSB
ABD: soft, BS+, NT, ND
EXT: +1-2 B/L LE edema.
NEURO: Gross non-focal
SKIN: Warm, pink, dry. No rash
Lab Results
09/16/24 07:19
09/16/24 07:19
Troponin I 0.129 ng/ml H* 09/16/24 07:19
Qgt-G-Lztcvddtfze Pept 2100 pg/ml 09/15/24 19:38
Impression / Plan
-
PCP: Valentino Rush
Primary quantometer operator: Javy Monae, [facility]
Impression:
Admitted with multifactorial SOB 09/15/24
Elevated Troponin
Possible community acquired PNA
Acute HFpEF
Mild to mod MR by echo 06/11/24
Mild peak/mean 21/11 mmHg
Paroxysmal atrial fibrillation
Chronic Eliquis OAC
Hypertension
Hyperlipidemia
h/o PE
Sarcoidosis with cardiac and lung involvement
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
Hypokalemia
Lexiscan nuclear stress test at [facility] 11/28/2023: No ischemia, EF 77%
Echo 11/03/2023 at [facility]: EF 50%, mild cLVH, grade 2 diastolic dysfunction, moderate MR, mild , mild AI, mild to moderate TR, PASP 36, small pericardial effusion
ECHO 06/11/2024: EF 60%, mild to moderate MR, mild with peak/mean gradients 21/11 mmHg, IAN 1.6 cm2, trace TR, trace DE, small pericardial effusion
Echo 09/16/2024: Study pending, limited study ordered
Plan:
-Patient came to ER yesterday with URI symptoms for the last 5 days and was admitted with possible PNA and acute HF with consultation to cardiology. Patient says that she started with symptoms of cough and congestion but also noticed increased
LE edema over the last 5 days. Interestingly she felt like her weight was going down. She came to the ER and after negative COVID and influenza screens was admitted with possible community-acquired pneumonia and acute HF. Her BNP was 2100. Her
troponin was 0.155. She denies any chest pain. Patient says she has been compliant with her usual dose of Lasix 80 mg daily, but feels that her urine output volume has not been as high. Denies any increase in salt or fluid intake.
-ECG and telemetry reviewed by me show SR
-Patient is ordered Lasix 40 mg IV BID. Patient was taking Lasix 80 mg daily prior to admission. Pending response may need to increase Lasix to 80 mg IV BID for optimal diuresis
-EF was preserved at 60% with mild to moderate MR and mild by last echo 06/11/2024. Patient and daughter agreeable to repeat echo limited study to look at EF, MR and
-Outpatient dose of Lopressor 100 mg twice daily has been continued. Will consider transitioning to Toprol XL
-Outpatient dose of Cardizem CD 180 mg daily has been continued, this has previously been used to help with her history of paroxysmal A-fib and HR controlled. If EF is reduced then we will consider stopping Cardizem CD
-Outpatient dose of losartan is 50 mg daily, but 100 mg daily was ordered. Will change now
-Patient is not chronically on aldosterone antagonist, will consider adding pending echo and renal response to IV diuresis
-Potassium was 3.4 in the ER yesterday and is 3.4 again today despite KCl 20 mEq x 1. Will give additional KCl 40 mEq now and check magnesium level, all ordered by me
-Troponin peaked 0.155. Patient had similar troponin elevation associated with norovirus admission. Last known ischemic evaluation was 11/2023, it was a Lexiscan nuclear stress test at [place] that showed no ischemia.
-Patient with known paroxysmal A-fib, but currently NSR. Outpatient dose of Eliquis 5 mg BID (age 89, Cre 0.7, wt 73.96 kg) has been continued
--- NOTE | 2024-09-16 13:10 | W.PN.HOSP.TC ---
Today's Communication/Plan
-
Monitor vital signs see plan
Replete potassium
Continue with diuresis
Echo
cardiology to see
cw abx
Assessment / Plan
Assessment / Plan
General: Well Developed, Well Nourished and No Apparent Distress
HEENT: NormoCephalic, Moist mucous membranes and Atraumatic
Respiratory: Clear
Cardiac: S1/S2 and Regular Rhythm; No Murmur or Rub
GI: Soft, Non Tender, Non Distended and Normal Bowel Sounds
Musculoskeletal: No Edema
Skin: No Rash
Neuro: Nonfocal/grossly intact
Likely community-acquired pneumonia
-Clinically suggestive of pneumonia
-COVID and flu negative
-Ceftriaxone/doxycycline
-Mucinex
#Acute on chronic HFpEF exacerbation
-Cardiac BNP of 2100
-Chest x-ray shows patchy parenchymal opacity within both lower lobes, predominantly linear morphology suggestive of atelectasis, pneumonia is less likely
-Check I's and O's, daily weight
-40 IV Lasix twice daily
-Cardiology consulted
echo
Nausea could be 2/2 abx
monitor
abdominal imaging if doesnt improve
trial of zofran
# Elevated troponin, likely nonischemic myocardial injury
-monitor
-EKG shows sinus rhythm with premature atrial complexes,
# Hypokalemia
-Replete potassium
# Macrocytic anemia
monitor
Paroxysmal atrial fibrillation
-Continue Eliquis
-Continue diltiazem
History of pulmonary embolism
Essential hypertension
-Continue losartan
-Continue metoprolol
Polymyalgia rheumatica
-Continue hydroxychloroquine, methotrexate
Sarcoidosis
Hyperlipidemia
-Continue statin
Neurogenic bladder
-History catheterizes 3-4 times per day
GERD
DNR/DNI
DVT prophylaxis�Eliquis
I spent a total of 52 minutes with the patient or on the floor. More than 50% of this time involved counseling and coordination of care.
Anticipated Discharge: > 48 hours
Subjective/Interval History
-
Date of Service: September 16, 2024
denies pain
Objective Data
-
Labs:
Laboratory Results
09/16/24
07:19
WBC 6.8
Hgb 9.2 L
Hct 28.2 L
Plt Count 255
Sodium 138
Potassium 3.4 L
Chloride 106
Carbon Dioxide 28
BUN 14
Creatinine 0.7
Glucose 76
Calcium 8.5
Total Bilirubin 0.6
AST 22
ALT 18
Alkaline Phosphatase 76
Vital Signs:
Vital Signs
Temp Pulse Resp BP Pulse Ox
98.6 F 91 17 125/74 97
09/16/24 11:25 09/16/24 11:25 09/16/24 11:25 09/16/24 11:25 09/16/24 11:25
I&O
09/15/24 09/16/24 09/17/24
06:59 06:59 06:59
Output Total 300 / 300 600 / 600
Balance -300 / -300 -600 / -600
[2024-09-16 15:12] LABS: Troponin I 0.135 ng/ml
[2024-09-16] MEDS: KCL 40 MEQ PO (16:33)
[2024-09-16] MEDS: PLAQUENIL 200 MG PO (17:23)
[2024-09-16] MEDS: CRESTOR 5 MG PO (17:23)
[2024-09-16] MEDS: TYLENOL 650 MG PO (20:22)
[2024-09-16] MEDS: TESSALON PERLES 100 MG PO (20:22)
[2024-09-16] MEDS: NEURONTIN 600 MG PO (21:30)
[2024-09-16] MEDS: CARDIZEM CD 180 MG PO (21:33)
[2024-09-17 01:59] VITALS: BMI 31.8
[2024-09-17] MEDS: STERILE WATER FOR INJECTION 10 ML IV (02:13)
[2024-09-17] MEDS: ROCEPHIN 1000 MG IV (02:13)
[2024-09-17] MEDS: TESSALON PERLES 100 MG PO ×3 (02:22→09:15)
[2024-09-17 06:00] VITALS: BMI 31.3
[2024-09-17 07:30] VITALS: BP 110/61
[2024-09-17] MEDS: MUCINEX 1200 MG PO ×2 (07:57→20:20)
[2024-09-17] MEDS: COZAAR 50 MG PO (07:57)
[2024-09-17] MEDS: ELIQUIS 5 MG PO ×2 (07:58→20:20)
[2024-09-17] MEDS: DELTASONE 5 MG PO (07:59)
[2024-09-17] MEDS: FOLVITE 1 MG PO (07:59)
[2024-09-17] MEDS: LOPRESSOR 100 MG PO ×2 (07:59→20:20)
[2024-09-17] MEDS: LASIX 40 MG IV ×2 (08:00→16:11)
[2024-09-17 08:32] LABS: Hematocrit 31.1 % (37.0-47.0); Hemoglobin 10.2 g/dL (12.0-16.0); Mean Corp Hgb Conc. 32.8 g/dL (33.0-37.0); Mean Corpuscular Hgb 32.3 pg (27.0-31.0); Mean Corpuscular Volume 98.4 fL (81.0-99.0); Mean Platelet Volume 8.9 fL (7.4-10.4); Platelet Count 310 10^3/uL (130-400); Red Blood Cell Count 3.16 10^6/uL (4.20-5.40); Red Cell Dist. Width 17.2 % (11.5-14.5); White Blood Cell Count 6.7 10^3/uL (4.8-10.8)
[2024-09-17 08:56] LABS: Blood Urea Nitrogen 17 mg/dl (7-17); Calcium 8.6 mg/dl (8.4-10.2); Carbon Dioxide 26 mmol/L (22-30); Chloride 106 mmol/L (98-107); Estimated Creatinine Clearance 49 ml/min; Glucose 94 mg/dl (70-99); Magnesium 1.6 mg/dl (1.6-2.3); Sodium 140 mmol/L (135-145); eGFR > 60.00
[2024-09-17] MEDS: VIBRAMYCIN 100 MG PO ×2 (09:14→21:54)
[2024-09-17 09:56] LABS: % Basophils 0.7 % (0-2); % Eosinophils 1.6 % (0-6); % Immature Granulocytes 1.8 % (0-0.5); % Lymphocytes 27.6 % (20.5-51.1); % Monocytes 16.7 % (1.7-9.3); % Neutrophils 51.6 % (42.2-75.2); Absolute Basophils 0.1 10^3/uL (0-0.2); Absolute Eosinophils 0.1 10^3/uL (0-0.7); Absolute Immature Granulocytes 0.1 10^3/uL (0-0.05); Absolute Lymphocytes 1.9 10^3/uL (1.2-3.4); Absolute Monocytes 1.1 10^3/uL (0.1-0.6); Absolute Neutrophils 3.5 10^3/uL (1.4-6.5); Nucleated Red Blood Cells % 0.4 %
[2024-09-17 11:39] VITALS: BP 92/53
--- NOTE | 2024-09-17 12:01 | CM ---
Patient has been accepted at [facility] skilled when medically stable.
Plan; Skilled placement at [facility].
--- NOTE | 2024-09-17 12:27 | PTCARENOTE ---
Patient used incentive spirometer (reached 250) at 11:00. Patient used PEP at 11:00
--- NOTE | 2024-09-17 12:28 | PTCARENOTE ---
PEP used at 1200
--- NOTE | 2024-09-17 12:30 | W.PN.HOSP.TC ---
Today's Communication/Plan
-
monitor vitals
see plan
add acapella
cw diuresis
cw abx
Assessment / Plan
Assessment / Plan
General: Well Developed, Well Nourished and No Apparent Distress
HEENT: NormoCephalic, Moist mucous membranes and Atraumatic
Respiratory: Clear
Cardiac: S1/S2 and Regular Rhythm; No Murmur or Rub
GI: Soft, Non Tender, Non Distended and Normal Bowel Sounds
Musculoskeletal: No Edema
Skin: No Rash
Neuro: Nonfocal/grossly intact
Likely community-acquired pneumonia
-Clinically suggestive of pneumonia
-COVID and flu negative
-cw Ceftriaxone/doxycycline
-Mucinex; added tessalon pearls
add acapella
sputum cx
#Acute on chronic HFpEF exacerbation
-Cardiac BNP of 2100
-Chest x-ray shows patchy parenchymal opacity within both lower lobes, predominantly linear morphology suggestive of atelectasis, pneumonia is less likely
-Check I's and O's, daily weight
-40 IV Lasix twice daily
-Cardiology following
echo 09/16 with EF 55 to 60%, aortic stenosis. No significant change
Nausea could be 2/2 abx
monitor; improving
abdominal imaging if doesnt improve
trial of zofran
# Elevated troponin, likely nonischemic myocardial injury
-monitor
-EKG shows sinus rhythm with premature atrial complexes,
# Hypokalemia
-Replete potassium
# Macrocytic anemia
monitor
Paroxysmal atrial fibrillation
-Continue Eliquis
-Continue diltiazem
History of pulmonary embolism
Essential hypertension
-Continue losartan
-Continue metoprolol
Polymyalgia rheumatica
-Continue hydroxychloroquine, methotrexate
Sarcoidosis
Hyperlipidemia
-Continue statin
Neurogenic bladder
-History catheterizes 3-4 times per day
GERD
DNR/DNI
DVT prophylaxis�Eliquis
I spent a total of 52 minutes with the patient or on the floor. More than 50% of this time involved counseling and coordination of care.
Anticipated Discharge: > 48 hours
Subjective/Interval History
-
Date of Service: September 17, 2024
denies pain
Objective Data
-
Labs:
Laboratory Results
09/17/24
08:02
WBC 6.7
Hgb 10.2 L
Hct 31.1 L
Plt Count 310 D
Sodium 140
Potassium 4.0
Chloride 106
Carbon Dioxide 26
BUN 17
Creatinine 0.7
Glucose 94
Calcium 8.6
Vital Signs:
Vital Signs
Temp Pulse Resp BP Pulse Ox
97.6 F 61 16 92/53 98
09/17/24 11:39 09/17/24 11:39 09/17/24 11:39 09/17/24 11:39 09/17/24 11:39
I&O
09/16/24 09/17/24 09/18/24
06:59 06:59 06:59
Intake Total 1600 / 1600
Output Total 300 / 300 600 / 600
Balance -300 / -300 1000 / 1000
--- NOTE | 2024-09-17 13:37 | W.PN.CARDCBS ---
Addendum entered and electronically signed by Heber Ty MD 09/17/24 14:34:
I saw and examined the patient.
The STEEL RULE DIE MAKER or PA's note was reviewed and I agree with the note.
Comment: General: Well developed, well nourished in NAD.
Neck: Supple, no JVD, HJR, carotids +2 B/L, no bruits bilaterally.
Heart: Non displaced PMI, RRR, no murmurs, No S3, S4, no rubs.
Lungs: Scattered rhonchi
Extremities: No clubbing, cyanosis or edema bilaterally.
Neuro: Grossly nonfocal, awake, alert and oriented x3.
She appears to be improving. She is on room air at present. Consider change to oral Lasix in a.m.
Original Note:
Today's Communication / Plan
-
Cont Lasix 40 mg IV BID
EF stable by echo
Impression / Plan
-
PCP: Valentino Rush
Primary digital hardware design engineer: Javy Monae, [facility]
Impression:
Admitted with multifactorial SOB 09/15/24
Elevated Troponin
Possible community acquired PNA
Acute HFpEF
Mild to mod MR by echo 06/11/24
Mild peak/mean 21/11 mmHg
Paroxysmal atrial fibrillation
Chronic Eliquis OAC
Hypertension
Hyperlipidemia
h/o PE
Sarcoidosis with cardiac and lung involvement
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
Hypokalemia
Lexiscan nuclear stress test at [facility] 11/28/2023: No ischemia, EF 77%
Echo 11/03/2023: at [facility], EF 50%, mild cLVH, grade 2 diastolic dysfunction, moderate MR, mild , mild AI, mild to moderate TR, PASP 36, small pericardial effusion
ECHO 06/11/2024: EF 60%, mild to moderate MR, mild with peak/mean gradients 21/11 mmHg, IAN 1.6 cm2, trace TR, trace FL, small pericardial effusion
Echo 09/16/2024: EF 55 to 60%, mitral sclerosis without stenosis, trace MR, mild peak/mean 28/14 mmHg and IAN 1.5 cm sq, sinus of Valsalva 3.8 cm, normal ascending aorta, small pericardial effusion without evidence of hemodynamic compromise
Plan:
-Weight is down 3 lbs overnight with Lasix 40 mg IV BID patient was taking Lasix 80 mg daily prior to admission. Pending response may need to increase Lasix to 80 mg IV BID for optimal diuresis
-Labs reviewed by me 09/17/24, Cre stable at 0.7
-Repeat echo 09/16/2024 shows preserved EF, MR is only trace and is stable and mild.
-Outpatient dose of Lopressor 100 mg twice daily has been continued. Will consider transitioning to Toprol XL
-Outpatient dose of Cardizem CD 180 mg daily has been continued, this has previously been used to help with her history of paroxysmal A-fib and HR controlled.
-Outpatient dose of losartan is 50 mg daily has been continued
-Patient is not chronically on aldosterone antagonist, will consider adding
-Labs reviewed by hi 09/17/2024, potassium improved to 4.0 following additional dose of KCl 40 mEq on 09/17/2024. Patient was not taking a potassium supplement prior to admission. Daily labs ordered
-Troponin peaked 0.155. Patient had similar troponin elevation associated with norovirus admission. Last known ischemic evaluation was 11/2023, it was a Lexiscan nuclear stress test at [facility] that showed no ischemia.
-Patient with known paroxysmal A-fib, but currently NSR. Outpatient dose of Eliquis 5 mg BID (age 89, Cre 0.7, wt 73.96 kg) has been continued
HPI: Patient came to ER yesterday with URI symptoms for the last 5 days and was admitted with possible PNA and acute HF with consultation to cardiology. Patient says that she started with symptoms of cough and congestion but also noticed
increased LE edema over the last 5 days. Interestingly she felt like her weight was going down. She came to the ER and after negative COVID and influenza screens was admitted with possible community-acquired pneumonia and acute HF. Her BNP was
2100. Her troponin was 0.155. She denies any chest pain. Patient says she has been compliant with her usual dose of Lasix 80 mg daily, but feels that her urine output volume has not been as high. Denies any increase in salt or fluid intake.
Progress Note - Fiber Machine Tender
Subjective
Date of Service: September 17, 2024
Less SOB
Objective
Labs:
09/17/24 08:02
09/17/24 08:02
Labs
Hgb 10.2 g/dL (12.0-16.0) L 09/17/24 08:02
Hct 31.1 % (37.0-47.0) L 09/17/24 08:02
Plt Count 310 10^3/uL (130-400) D 09/17/24 08:02
Sodium 140 mmol/L (135-145) 09/17/24 08:02
Potassium 4.0 mmol/L (3.5-5.1) 09/17/24 08:02
BUN 17 mg/dl (7-17) 09/17/24 08:02
Creatinine 0.7 mg/dL (0.6-1.0) 09/17/24 08:02
Glucose 94 mg/dl (70-99) 09/17/24 08:02
Troponins
09/15/24 09/16/24 09/16/24
19:38 01:20 07:19
Troponin I 0.126 H* 0.155 H* 0.129 H*
09/16/24 09/16/24
14:07 19:34
Troponin I 0.135 H* 0.120 H*
Vital Signs and I&O:
Vital Signs
Temp Pulse Resp BP Pulse Ox
97.6 F 61 16 92/53 98
09/17/24 11:39 09/17/24 11:39 09/17/24 11:39 09/17/24 11:39 09/17/24 11:39
Vital Signs
Temp Pulse Resp BP Pulse Ox
97.6 F 61 16 92/53 98
09/17/24 11:39 09/17/24 11:39 09/17/24 11:39 09/17/24 11:39 09/17/24 11:39
Intake & Output
09/15/24 09/16/24 09/17/24 09/18/24
06:59 06:59 06:59 06:59
Intake Total 1600 / 1600
Output Total 300 / 300 600 / 600
Balance -300 / -300 1000 / 1000
Physical Exam
Physical Exam
GEN: NAD, AAOx3
HEENT: EOMI
LUNGS: RA.
CV: SR on tele.
EXT: +1 B/L LE edema.
NEURO: Gross non-focal
SKIN: No rash
[2024-09-17 15:22] VITALS: BP 111/81
[2024-09-17] MEDS: TESSALON PERLES 200 MG PO ×2 (16:10→21:42)
[2024-09-17 17:24] LABS: Hepatitis B Surface Antigen Negative (Negative)
[2024-09-17 17:34] LABS: HIV Combo Negative (Negative)
[2024-09-17 17:42] LABS: Hepatitis C Antibody Negative (Negative)
[2024-09-17] MEDS: PLAQUENIL 200 MG PO (18:26)
[2024-09-17] MEDS: CRESTOR 5 MG PO (18:26)
[2024-09-17 19:46] VITALS: BP 106/72
[2024-09-17] MEDS: TYLENOL 650 MG PO (20:21)
[2024-09-17] MEDS: ULTRAM 25 MG PO (21:39)
[2024-09-17] MEDS: CARDIZEM CD 180 MG PO (21:40)
[2024-09-17] MEDS: NEURONTIN 600 MG PO (21:42)
[2024-09-17 21:49] VITALS: BP 137/81
[2024-09-18] VITALS (8 sets, daily range): BP systolic 90–128; BP diastolic 53–78; PULSE 64–69; O2SAT 95; BMI 31.8
[2024-09-18] MEDS: ROCEPHIN 1000 MG IV (01:46)
[2024-09-18] MEDS: STERILE WATER FOR INJECTION 10 ML IV (01:47)
--- NOTE | 2024-09-18 04:05 | PTCARENOTE ---
AAO x 4. VSS. Patient complaining of head and generalized chest pain, from coughing. PRN tylenol and tramadol administered--patient with positive response as evidenced by patient sleeping. OOB x 1 assist with rolling walker. HF education complete.
Bed in lowest position. Bed alarm on. Call alston and personal belongings within reach.
[2024-09-18] MEDS: VIBRAMYCIN 100 MG PO ×2 (09:13→20:49)
[2024-09-18] MEDS: DELTASONE 5 MG PO (09:13)
[2024-09-18] MEDS: ELIQUIS 5 MG PO ×2 (09:13→20:48)
[2024-09-18] MEDS: LASIX 40 MG IV ×2 (09:13→18:15)
[2024-09-18] MEDS: COZAAR 50 MG PO (09:13)
[2024-09-18] MEDS: FOLVITE 1 MG PO (09:14)
[2024-09-18] MEDS: TESSALON PERLES 200 MG PO ×3 (09:14→20:47)
[2024-09-18] MEDS: LOPRESSOR 100 MG PO (09:14)
[2024-09-18] MEDS: MUCINEX 1200 MG PO ×2 (09:14→20:47)
[2024-09-18 09:40] LABS: Hematocrit 31.9 % (37.0-47.0); Hemoglobin 10.5 g/dL (12.0-16.0); Mean Corp Hgb Conc. 32.9 g/dL (33.0-37.0); Mean Corpuscular Volume 97.3 fL (81.0-99.0); Mean Platelet Volume 9.3 fL (7.4-10.4); Platelet Count 380 10^3/uL (130-400); Red Blood Cell Count 3.28 10^6/uL (4.20-5.40); White Blood Cell Count 6.4 10^3/uL (4.8-10.8)
--- NOTE | 2024-09-18 10:20 | CM ---
Chart reviewed and patient will need PT/OT evaluations to assist with discharge planning, patient and family are looking at skilled placement as patient lives alone.
Plan; Waiting on PT/OT evaluations.
[2024-09-18 10:48] LABS: Blood Urea Nitrogen 21 mg/dl (7-17); Calcium 8.9 mg/dl (8.4-10.2); Carbon Dioxide 26 mmol/L (22-30); Chloride 103 mmol/L (98-107); Estimated Creatinine Clearance 39 ml/min; Glucose 136 mg/dl (70-99); Potassium 3.9 mmol/L (3.5-5.1); Sodium 140 mmol/L (135-145); eGFR > 60.00
[2024-09-18 13:19] LABS: % Basophils 0.9 % (0-2); % Eosinophils 1.2 % (0-6); % Immature Granulocytes 1.6 % (0-0.5); % Lymphocytes 31.1 % (20.5-51.1); % Neutrophils 49.2 % (42.2-75.2); Absolute Basophils 0.1 10^3/uL (0-0.2); Absolute Eosinophils 0.1 10^3/uL (0-0.7); Absolute Immature Granulocytes 0.1 10^3/uL (0-0.05); Absolute Neutrophils 3.2 10^3/uL (1.4-6.5); Nucleated Red Blood Cells % 0 %
--- NOTE | 2024-09-18 13:25 | W.PN.HOSP.TC ---
Today's Communication/Plan
-
Monitor vital signs see plan
Diuresis per cardiology
Antibiotics
Discharge planning
Assessment / Plan
Assessment / Plan
General: Well Developed, Well Nourished and No Apparent Distress
HEENT: NormoCephalic, Moist mucous membranes and Atraumatic
Respiratory: Clear
Cardiac: S1/S2 and Regular Rhythm; No Murmur or Rub
GI: Soft, Non Tender, Non Distended and Normal Bowel Sounds
Musculoskeletal: No Edema
Skin: No Rash
Neuro: Nonfocal/grossly intact
Likely community-acquired pneumonia
-Clinically suggestive of pneumonia
-COVID and flu negative
-cw Ceftriaxone/doxycycline
-Mucinex; added tessalon pearls
add acapella
sputum cx if able
#Acute on chronic HFpEF exacerbation
-Cardiac BNP of 2100
-Chest x-ray shows patchy parenchymal opacity within both lower lobes
-Check I's and O's, daily weight
- continue with diuresis per cardiology
-Cardiology following
echo 09/16 with EF 55 to 60%, aortic stenosis. No significant change
Nausea could be 2/2 abx
monitor; improving
abdominal imaging if doesnt improve
trial of zofran
# Elevated troponin, likely nonischemic myocardial injury
-monitor
-EKG shows sinus rhythm with premature atrial complexes,
# Hypokalemia
-Replete potassium
# Macrocytic anemia
monitor
Paroxysmal atrial fibrillation
-Continue Eliquis
-Continue diltiazem
History of pulmonary embolism
Essential hypertension
-Continue losartan
-Continue metoprolol
Polymyalgia rheumatica
-Continue hydroxychloroquine, methotrexate
Sarcoidosis
Hyperlipidemia
-Continue statin
Neurogenic bladder
-History catheterizes 3-4 times per day
GERD
DNR/DNI
DVT prophylaxis�Eliquis
PT rec SNF
Anticipated Discharge: Within 24 hours
Subjective/Interval History
-
Date of Service: September 18, 2024
Denies pain
Objective Data
-
Labs:
Laboratory Results
09/18/24
08:41
WBC 6.4
Hgb 10.5 L
Hct 31.9 L
Plt Count 380 D
Sodium 140
Potassium 3.9
Chloride 103
Carbon Dioxide 26
BUN 21 H
Creatinine 0.9
Glucose 136 H
Calcium 8.9
Vital Signs:
Vital Signs
Temp Pulse Resp BP Pulse Ox
97.5 F 70 18 95/59 94
09/18/24 11:43 09/18/24 11:43 09/18/24 11:43 09/18/24 11:43 09/18/24 11:43
I&O
09/17/24 09/18/24 09/19/24
06:59 06:59 06:59
Intake Total 1600 / 1600 5 / 1125
Output Total 600 / 600
Balance 1000 / 1000 1124 / 112
--- NOTE | 2024-09-18 14:08 | W.PN.CARDCBS ---
Addendum entered and electronically signed by Joseph Brody MD 09/18/24 16:25:
I saw and examined the patient.
The Consultant Nurse's note was reviewed and I agree with the note.
Comment: Briefly, 89-year-old woman past medical history of heart failure with preserved ejection fraction who presents with dyspnea which is likely multifactorial in the setting of community-acquired pneumonia but also decompensated heart failure.
Agree with further IV diuresis in an attempt to improve her respiratory status
Overall he can transition to oral in next 24 to 48 hours
Follow creatinine/electrolytes and daily weights
Elevated troponin is noted however trend overall is flat
Suspect nonischemic myocardial injury troponin elevation in the setting of decompensated heart failure
Known history of paroxysmal atrial fibrillation
Continue diltiazem and metoprolol for rate control as well as Eliquis for cardioembolic prophylaxis
Rest per Areli Eaton
Original Note:
Today's Communication / Plan
-
Straight cath TID for PVR, follows this regimen at home
Change Lopressor to Toprol XL
Hold parameters added to meds
Impression / Plan
-
PCP: Valentino Rush
Primary dictaphone mechanic: Javy Monae, [facility]
Impression:
Admitted with multifactorial SOB 09/15/24
Elevated Troponin
Possible community acquired PNA
Acute HFpEF
Mild to mod MR by echo 06/11/24
Mild peak/mean 21/11 mmHg
Paroxysmal atrial fibrillation
Chronic Eliquis OAC
Hypertension
Hyperlipidemia
h/o PE
Sarcoidosis with cardiac and lung involvement
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
Hypokalemia
Lexiscan nuclear stress test at [facility] 11/28/2023: No ischemia, EF 77%
Echo 11/03/2023: at [facility], EF 50%, mild cLVH, grade 2 diastolic dysfunction, moderate MR, mild , mild AI, mild to moderate TR, PASP 36, small pericardial effusion
ECHO 06/11/2024: EF 60%, mild to moderate MR, mild with peak/mean gradients 21/11 mmHg, IAN 1.6 cm2, trace TR, trace [place], small pericardial effusion
Echo 09/16/2024: EF 55 to 60%, mitral sclerosis without stenosis, trace MR, mild peak/mean 28/14 mmHg and IAN 1.5 cm sq, sinus of Valsalva 3.8 cm, normal ascending aorta, small pericardial effusion without evidence of hemodynamic compromise
Plan:
-Weight is up 3 lbs overnight if the recorded weight is correct. Despite weight gain patient has improved LE edema and SOB.
-Cont Lasix 40 mg IV BID. Patient was taking Lasix 80 mg PO daily prior to admission.
-Labs reviewed by me 09/18/24, Cre stable at 0.9
-Repeat echo 09/16/2024 shows preserved EF, MR is only trace and is stable and mild.
-Patient is hypotensive, but not lightheaded. Will change Lopressor 100 mg BID to Toprol XL 50 mg BID
-Outpatient dose of Lopressor 100 mg twice daily has been continued. Will consider transitioning to Toprol XL
-Outpatient dose of Cardizem CD 180 mg daily has been continued, this has previously been used to help with her history of paroxysmal A-fib and HR controlled.
-Outpatient dose of losartan is 50 mg daily has been continued and hold parameters added
-Patient is not chronically on aldosterone antagonist, will not add due to hypotension
-Troponin peaked 0.155. Patient had similar troponin elevation associated with norovirus admission. Last known ischemic evaluation was 11/2023, it was a Lexiscan nuclear stress test at [place] that showed no ischemia.
-Patient with known paroxysmal A-fib, but remains SR on tele review by me. Outpatient dose of Eliquis 5 mg BID (age 89, Cre 0.7, wt 73.96 kg) has been continued
-Patient has a history of PVR and generally straight caths herself at home 3 times daily, but that has not been performed during this admission. Order for straight cath 3 times daily added by me 09/18/2024
HPI: Patient came to ER yesterday with URI symptoms for the last 5 days and was admitted with possible PNA and acute HF with consultation to cardiology. Patient says that she started with symptoms of cough and congestion but also noticed
increased LE edema over the last 5 days. Interestingly she felt like her weight was going down. She came to the ER and after negative COVID and influenza screens was admitted with possible community-acquired pneumonia and acute HF. Her BNP was
2100. Her troponin was 0.155. She denies any chest pain. Patient says she has been compliant with her usual dose of Lasix 80 mg daily, but feels that her urine output volume has not been as high. Denies any increase in salt or fluid intake.
Progress Note - Spooler Operator Automatic
Subjective
Date of Service: September 18, 2024
Exhausted after working with PT
Objective
Labs:
09/18/24 08:41
09/18/24 08:41
Labs
Hgb 10.5 g/dL (12.0-16.0) L 09/18/24 08:41
Hct 31.9 % (37.0-47.0) L 09/18/24 08:41
Plt Count 380 10^3/uL (130-400) D 09/18/24 08:41
Sodium 140 mmol/L (135-145) 09/18/24 08:41
Potassium 3.9 mmol/L (3.5-5.1) 09/18/24 08:41
BUN 21 mg/dl (7-17) H 09/18/24 08:41
Creatinine 0.9 mg/dL (0.6-1.0) 09/18/24 08:41
Glucose 136 mg/dl (70-99) H 09/18/24 08:41
Troponins
09/15/24 09/16/24 09/16/24
19:38 01:20 07:19
Troponin I 0.126 H* 0.155 H* 0.129 H*
09/16/24 09/16/24
14:07 19:34
Troponin I 0.135 H* 0.120 H*
Vital Signs and I&O:
Vital Signs
Temp Pulse Resp BP Pulse Ox
97.5 F 70 18 95/59 94
09/18/24 11:43 09/18/24 11:43 09/18/24 11:43 09/18/24 11:43 09/18/24 11:43
Vital Signs
Temp Pulse Resp BP Pulse Ox
97.5 F 70 18 95/59 94
09/18/24 11:43 09/18/24 11:43 09/18/24 11:43 09/18/24 11:43 09/18/24 11:43
Intake & Output
09/16/24 09/17/24 09/18/24 09/19/24
06:59 06:59 06:59 06:59
Intake Total 1600 / 1600 1125 / 1125
Output Total 300 / 300 600 / 600
Balance -300 / -300 1000 / 1000 1125 / 1125
Physical Exam
Physical Exam
GEN: NAD, AAOx3
HEENT: EOMI
LUNGS: RA.
CV: SR on tele.
EXT: Trace B/L LE edema.
NEURO: Gross non-focal
SKIN: No rash
[2024-09-18] MEDS: CRESTOR 5 MG PO (18:14)
[2024-09-18] MEDS: PLAQUENIL 200 MG PO (18:15)
[2024-09-18] MEDS: NEURONTIN 600 MG PO (20:47)
[2024-09-18] MEDS: CARDIZEM CD 180 MG PO (20:48)
[2024-09-18] MEDS: TOPROL XL 50 MG PO (20:48)
[2024-09-18] MEDS: ULTRAM 25 MG PO (22:08)
[2024-09-19] MEDS: ROCEPHIN 1000 MG IV (02:03)
[2024-09-19] MEDS: STERILE WATER FOR INJECTION 10 ML IV (02:03)
--- NOTE | 2024-09-19 02:43 | PTCARENOTE ---
AAO x 4. VSS. Patient complains of pleuritic chest pain--prn tramadol administered for pain management. Patient with productive cough, bringing up yellow to clear sputum. Sputum culture pending. Afebrile overnight. NSR with PVCs on telemetry. OOB x
1 assist with rolling walker, to bathroom. Patient has not required straight catheterization. BM 09/18/24. Bed in lowest position with bed alarm on. All patient needs met. Call alston and personal belongings within reach.
[2024-09-19 03:37] VITALS: BP 105/65
[2024-09-19 05:48] VITALS: BMI 31.1
[2024-09-19 06:00] VITALS: BMI 31.1
[2024-09-19 07:34] VITALS: BP 107/70
[2024-09-19] MEDS: MUCINEX 1200 MG PO ×2 (08:17→20:56)
[2024-09-19] MEDS: ELIQUIS 5 MG PO ×2 (08:17→20:56)
[2024-09-19] MEDS: TESSALON PERLES 200 MG PO ×3 (08:17→20:56)
[2024-09-19] MEDS: FOLVITE 1 MG PO (08:18)
[2024-09-19] MEDS: DELTASONE 5 MG PO (08:18)
[2024-09-19] MEDS: LASIX 40 MG IV ×2 (08:21→16:25)
[2024-09-19] MEDS: TOPROL XL 50 MG PO (08:21)
[2024-09-19] MEDS: COZAAR 50 MG PO (08:21)
[2024-09-19 08:32] LABS: Hematocrit 28.7 % (37.0-47.0); Hemoglobin 9.4 g/dL (12.0-16.0); Mean Corp Hgb Conc. 32.8 g/dL (33.0-37.0); Mean Corpuscular Hgb 32.3 pg (27.0-31.0); Mean Corpuscular Volume 98.6 fL (81.0-99.0); Platelet Count 357 10^3/uL (130-400); Red Blood Cell Count 2.91 10^6/uL (4.20-5.40); Red Cell Dist. Width 16.8 % (11.5-14.5); White Blood Cell Count 6.7 10^3/uL (4.8-10.8)
[2024-09-19 08:58] LABS: Blood Urea Nitrogen 24 mg/dl (7-17); Calcium 8.9 mg/dl (8.4-10.2); Carbon Dioxide 26 mmol/L (22-30); Chloride 107 mmol/L (98-107); Estimated Creatinine Clearance 49 ml/min; Glucose 81 mg/dl (70-99); Potassium 3.6 mmol/L (3.5-5.1); Sodium 140 mmol/L (135-145); eGFR > 60.00
[2024-09-19] MEDS: VIBRAMYCIN 100 MG PO ×2 (09:07→20:59)
[2024-09-19 11:05] LABS: Absolute Neutrophils -Man Diff 3.2 10^3/uL (1.4-6.5); Band Neutrophils 0 % (0-3); Eosinophils 2 % (0-6); Lymphocytes 33 % (20-51); Monocytes 15 % (2-9); Platelets Checked Yes; Segmented Neutrophils 48 % (42-75)
[2024-09-19 11:06] LABS: Anisocytosis 1+; Hypochromasia 1+; Normal RBC Morphology No; Total Cells Counted 100
[2024-09-19 11:07] LABS: Atypical Lymphocytes 1 %; Metamyelocytes 1 % (-)
--- NOTE | 2024-09-19 11:13 | W.PN.CARDCBS ---
Addendum entered and electronically signed by Kyara Gardner MD 09/19/24 11:53:
CXR ordered
Addendum entered and electronically signed by Kyara Gardner MD 09/19/24 11:50:
I saw and examined the patient.
The Press Pipe Inspector's note was reviewed and I agree with the note.
Comment: She is with her daughter at the bedside. She has been coughing mostly since she took a bite out of a scone. She said that she has been coughing on and off. She tells me she does not swallow very good at times. She still has some lower
extremity edema. She denies chest pain and palpitations.
General: Elderly woman sitting in bed
Heart: Distant heart sounds. Regular.
Lungs: Coarse breath sounds with some crackles at left base. Decreased breath sounds bilateral
Extremities: No clubbing, cyanosis or edema bilaterally.
Neuro: Awake with trace to +1 edema bilateral
She was admitted with multifactorial shortness of breath. She has acute heart failure with preserved ejection fraction. She continues to diurese. She also straight caths at home and we will assure that this is occurring.
In addition she is being treated for pneumonia. I am concerned about the possibility of aspiration.
-Continue IV diuretic for heart failure with preserved ejection fraction
-Follow input/output and daily weights
-Consider swallowing assessment to assess risk for aspiration
-Pneumonia treatment per primary service
-She straight caths at home and should proceed
-Continue treatment of paroxysmal atrial fibrillation with oral anticoagulation.
Communicated with primary service. Her daughter also understands the plan.
I spent 51 minutes [id number]-gu-[id number] and aob-[id number]-[id number]-face time in discussion, review of records, along with physician tourist information assistant discussing with nursing staff and also with family.
Original Note:
Today's Communication / Plan
-
Possible aspiration and speech therapy to see
Straight cath ordered
Decrease Toprol XL to 25 mg BID
Impression / Plan
-
PCP: Valentino Rush
Primary burr bench hand: Javy Monae, [facility]
Impression:
Admitted with multifactorial SOB 09/15/24
Elevated Troponin
Possible community acquired PNA
Acute HFpEF
Mild to mod MR by echo 06/11/24
Mild peak/mean 21/11 mmHg
Paroxysmal atrial fibrillation
Chronic Eliquis OAC
Hypertension
Hyperlipidemia
h/o PE
Sarcoidosis with cardiac and lung involvement
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
Hypokalemia
Lexiscan nuclear stress test at [facility] 11/28/2023: No ischemia, EF 77%
Echo 11/03/2023: at [facility], EF 50%, mild cLVH, grade 2 diastolic dysfunction, moderate MR, mild , mild AI, mild to moderate TR, PASP 36, small pericardial effusion
ECHO 06/11/2024: EF 60%, mild to moderate MR, mild with peak/mean gradients 21/11 mmHg, IAN 1.6 cm2, trace TR, trace SD, small pericardial effusion
Echo 09/16/2024: EF 55 to 60%, mitral sclerosis without stenosis, trace MR, mild peak/mean 28/14 mmHg and IAN 1.5 cm sq, sinus of Valsalva 3.8 cm, normal ascending aorta, small pericardial effusion without evidence of hemodynamic compromise
Plan:
-Patient noted to cough on scone she was eating when we entered the room 09/19/24. TT to hospitalist attending and he is going to consult speech
-CXR 09/15/24 showed atelectasis.
-Remains on Rocephin 1 gram IV daily and doxycycline 100 mg q 12 hours
-Weight is down to 159 lbs on 09/19/24, patient has diuresed 4 lbs this admission. Symptomatically improved LE edema and SOB.
-Cont Lasix 40 mg IV BID. Patient was taking Lasix 80 mg PO daily prior to admission.
-Labs reviewed by me 09/19/24, Cre stable at 0.7
-Repeat echo 09/16/2024 shows preserved EF, MR is only trace and is stable and mild.
-Changed Lopressor 100 mg BID to Toprol XL 50 mg BID this admission and remains hypotensive so will reduce Toprol XL to 25 mg BID on 09/19/24
-Outpatient dose of Lopressor 100 mg twice daily has been continued. Will consider transitioning to Toprol XL
-Outpatient dose of Cardizem CD 180 mg HS has been continued, this has previously been used to help with her history of paroxysmal A-fib and HR controlled.
-Outpatient dose of losartan is 50 mg daily has been continued and hold parameters added
-Patient is not chronically on aldosterone antagonist, will not add due to hypotension
-Troponin peaked 0.155. Patient had similar troponin elevation associated with norovirus admission. Last known ischemic evaluation was 11/2023, it was a Lexiscan nuclear stress test at [place] that showed no ischemia.
-Patient with known paroxysmal A-fib, but remains SR on tele review by me. Outpatient dose of Eliquis 5 mg BID (age 89, Cre 0.7, wt 73.96 kg) has been continued
-Re-entered order for straight cath TID which is what patient does at home. Patient has a history of PVR and generally straight caths herself at home 3 times daily.
HPI: Patient came to ER yesterday with URI symptoms for the last 5 days and was admitted with possible PNA and acute HF with consultation to cardiology. Patient says that she started with symptoms of cough and congestion but also noticed
increased LE edema over the last 5 days. Interestingly she felt like her weight was going down. She came to the ER and after negative COVID and influenza screens was admitted with possible community-acquired pneumonia and acute HF. Her BNP was
2100. Her troponin was 0.155. She denies any chest pain. Patient says she has been compliant with her usual dose of Lasix 80 mg daily, but feels that her urine output volume has not been as high. Denies any increase in salt or fluid intake.
Progress Note - Stummel Selector
Subjective
Date of Service: September 19, 2024
Coughing on her scone, she says it was the worst cough ever
Objective
Labs:
09/19/24 07:26
09/19/24 07:26
Labs
Hgb 9.4 g/dL (12.0-16.0) L 09/19/24 07:26
Hct 28.7 % (37.0-47.0) L 09/19/24 07:26
Plt Count 357 10^3/uL (130-400) 09/19/24 07:26
Sodium 140 mmol/L (135-145) 09/19/24 07:26
Potassium 3.6 mmol/L (3.5-5.1) 09/19/24 07:26
BUN 24 mg/dl (7-17) H 09/19/24 07:26
Creatinine 0.7 mg/dL (0.6-1.0) 09/19/24 07:26
Glucose 81 mg/dl (70-99) 09/19/24 07:26
Troponins
09/16/24 09/16/24
14:07 19:34
Troponin I 0.135 H* 0.120 H*
Vital Signs and I&O:
Vital Signs
Temp Pulse Resp BP Pulse Ox
97.6 F 74 18 107/70 94
09/19/24 07:34 09/19/24 08:21 09/19/24 07:34 09/19/24 08:21 09/19/24 07:34
Vital Signs
Temp Pulse Resp BP Pulse Ox
97.6 F 74 18 107/70 94
09/19/24 07:34 09/19/24 08:21 09/19/24 07:34 09/19/24 08:21 09/19/24 07:34
Intake & Output
09/17/24 09/18/24 09/19/24 09/20/24
06:59 06:59 06:59 06:59
Intake Total 1600 / 1600 1125 / 1125 960 / 960
Output Total 600 / 600
Balance 1000 / 1000 1125 / 1125 960 / 960
Physical Exam
Physical Exam
GEN: NAD, AAOx3
HEENT: EOMI
LUNGS: RA. Coughing. Left base rales
CV: SR on tele.
EXT: Trace B/L LE edema.
NEURO: Gross non-focal
SKIN: No rash
[2024-09-19 11:34] VITALS: BP 126/70
--- NOTE | 2024-09-19 11:50 | PTOTSP ---
Speech Language Pathology
Pt seen for clinical bedside swallow evaluation. Staff noted coughing on scone this date, which prompted PRECISION MACHINIST consult. Pt/daughter reported that pt has been coughing since that happened, approximately 1 hour ago. Pt reported hx of EGD in past with
findings of hiatal hernia, but she does not follow with GI. Pt complaints appear esophageal in nature: issues with solids only (not liquids), warm liquids help, globus sensation with solids in mid-chest, smaller meals with early satiety).
P.O. trials of puree, regular solids, and thin liquids provided. Adequate mastication, bolus formation, and A-P transit noted with no oral residue. No overt signs of aspiration. She did endorse globus sensation in chest with P.O. intake.
Suspect issues related to esophagus, not oropharyngeal swallow. Consider GI consult. If needed, VSE can be completed.
Recommend:
(1) Regular solids/thin liquids
(2) Consider GI consult
(3) Precautions: sit upright during meals and for at least 30 minutes post, slow rate, chew food thoroughly, frequent sips of liquids with meals, smaller more frequent meals
(4) Meds as tolerated
(5) PRECISION MACHINIST to continue to follow. Can complete VSE as indicated
--- NOTE | 2024-09-19 13:08 | W.PN.HOSP.TC ---
Today's Communication/Plan
-
Monitor vital signs see plan
Speech evaluation
GI evaluation
Continue with diuresis
Antibiotics
Repeat chest x-ray
Assessment / Plan
Assessment / Plan
General: Well Developed, Well Nourished and No Apparent Distress
HEENT: NormoCephalic, Moist mucous membranes and Atraumatic
Respiratory: Clear
Cardiac: S1/S2 and Regular Rhythm; No Murmur or Rub
GI: Soft, Non Tender, Non Distended and Normal Bowel Sounds
Musculoskeletal: No Edema
Skin: No Rash
Neuro: Nonfocal/grossly intact
Likely community-acquired pneumonia
-Clinically suggestive of pneumonia
-COVID and flu negative
-cw ceftriaxone/doxycycline
-Mucinex; added tessalon pearls
add acapella
sputum cx if able
given patient is still coughing; get speech eval, requested GI eval for possible esophageal source. GI consulted
#Acute on chronic HFpEF exacerbation
-Cardiac BNP of 2100
-Chest x-ray shows patchy parenchymal opacity within both lower lobes
-Check I's and O's, daily weight
- continue with diuresis per cardiology
-Cardiology following
echo 09/16 with EF 55 to 60%, aortic stenosis. No significant change
Nausea could be 2/2 abx
monitor; improving
abdominal imaging if doesnt improve
trial of zofran
# Elevated troponin, likely nonischemic myocardial injury
-monitor
-EKG shows sinus rhythm with premature atrial complexes,
# Hypokalemia
-Replete potassium
# Macrocytic anemia
monitor
Paroxysmal atrial fibrillation
-Continue Eliquis
-Continue diltiazem
History of pulmonary embolism
Essential hypertension
-Continue losartan
-Continue metoprolol
Polymyalgia rheumatica
-Continue hydroxychloroquine, methotrexate
Sarcoidosis
Hyperlipidemia
-Continue statin
Neurogenic bladder
-History catheterizes 3-4 times per day
GERD
DNR/DNI
DVT prophylaxis�Eliquis
PT rec SNF
Anticipated Discharge: Within 24 hours
Subjective/Interval History
-
Date of Service: September 19, 2024
Cough this morning
Objective Data
-
Labs:
Laboratory Results
09/19/24
07:26
WBC 6.7
Hgb 9.4 L
Hct 28.7 L
Plt Count 357
Sodium 140
Potassium 3.6
Chloride 107
Carbon Dioxide 26
BUN 24 H
Creatinine 0.7
Glucose 81
Calcium 8.9
Vital Signs:
Vital Signs
Temp Pulse Resp BP Pulse Ox
97.6 F 80 18 126/70 95
09/19/24 11:34 09/19/24 11:34 09/19/24 11:34 09/19/24 11:34 09/19/24 11:34
I&O
09/18/24 09/19/24 09/20/24
06:59 06:59 06:59
Intake Total 1125 / 1125 960 / 960
Balance 1125 / 1125 960 / 960
--- NOTE | 2024-09-19 13:32 | CON.GI ---
Addendum entered and electronically signed by Brenda Pandey MD 09/19/24 17:49:
The patient was seen and examined by me independently in collaboration with the nurse practitioner.
Past medical history/social history/medications/allergies/family history reviewed.
Lab data and imaging data reviewed.
89-year-old female past medical history of pulmonary embolus, paroxysmal A-fib on Eliquis, hiatal hernia (EGD years ago at [place]), sarcoidosis presenting with pneumonia and CHF. She was evaluated by speech with complaints of dysphagia with
solids. Speech has noted that she has esophageal symptoms only but no oropharyngeal issues. Feels food gets stuck in her epigastric region and will have discomfort in her shoulder and will stop. She denies progression of her symptoms. No issues
with liquids. Does have weight loss but could be related to diuresis. Plan for esophagram for further evaluation diff includes not limited to structural issue, motility issue, reflux. Patient is currently on Eliquis. Also will need cardiac and
pulmonary optimization prior to endoscopic evaluation. I discussed with the patient possibility of endoscopic evaluation and risks reviewed bleeding, infection, perforation. However, we will wait for esophagram results first to see if endoscopy is
necessary.
Original Note:
Consultation
-
Date/Time Consultation Requested: 09/19/24 1220
Date/Time Consultation Performed: 09/19/24 1330
Requesting Provider: Mak Hackett MD
Performing Provider: MATTHEW Barrow, Casandra Pandey MD
Reason for Consultation: abnormal speech eval with PNA on admission
Medical History
Chief Complaint / HPI
Chief Complaint: dysphagia, odynophagia
History of Present Illness:
Pt is a 89yo with hx PE, PAF on Eliquis, HH with prior EGD, pancreatitis with multiple ERCP's 20 + years ago, CHF, PMR, sarcoidosis,neurogenic bladder/ chronic urinary retention with st cath, HTN, hyperlipidemia, neurogenic bladder, GERD with
onset of congestion, nausea, with concern for PNA and CHF with some elevated troponin. Pt has been evaluated by speech with complaints of dysphagia with solids and globus sensation. In review with patient symptoms have gotten progressively worse.
First bit of solid is the worse with pain in chest and into back. Will feel like food stick for a period of time then goes down. Recalls EGD at [place] several years ago with HH but no dilation. + wt loss but some may be with diuresis with CHF.
She admits to GERD no medications, no nausea, vomiting, diarrhea, constipation or rectal bleeding.
Past Medical History
Past Medical History: Arrhythmias (PAF on Eliquis ), CHF, HTN, Hypercholesterolemia and Other (PE, PMR- chronic steroids, sarcoidosis, neurogenic bladder, GERD, pancreatitis, urinary retention with chronic st cahth, pessary in place)
Past Surgical History: Appendectomy, Cholecystectomy, Orthopedic (back and hips surgery), Urological (partial right nephrectomy) and Other (multiple ERCP's 20 + years ago, cataract surgery )
Social History
Tobacco: Non-Smoker
Alcohol: None
Drug: None
Living: Alone
Employment: Retired
Family History
Family History: Other (no family hx GI problems)
Allergies / Home Medications
Allergy/AdvReac Type Severity Reaction Status Date / Time
codeine Allergy bp goes Verified 09/15/24 19:03
down
meperidine HCl [From Demerol] Allergy bp goes Verified 09/15/24 19:03
down
�Medication �Instructions �Recorded
gabapentin 600 mg tablet 600 mg PO HS 10/20/14
(Neurontin)
metoprolol tartrate 100 mg tablet 100 mg PO BID 10/20/14
prednisone 5 mg tablet 5 mg PO DAILY 10/20/14
rosuvastatin 5 mg tablet 5 mg PO QPM 10/17/15
diltiazem HCl 180 mg capsule,24 180 mg PO HS 06/17/23
hr,extended release
ergocalciferol (vitamin D2) 1,250 1,250 mcg PO CASTILLO 06/17/23
mcg (50,000 unit) capsule
hydroxychloroquine 200 mg tablet 200 mg PO QPM 06/17/23
losartan 50 mg tablet 50 mg PO DAILY 06/17/23
folic acid 1 mg tablet 1 mg PO DAILY 06/10/24
furosemide 40 mg tablet (Lasix) 80 mg PO DAILY 06/10/24
methotrexate sodium 2.5 mg tablet 10 mg PO CASTILLO@0800 06/10/24
apixaban 5 mg tablet (Eliquis) 5 mg PO BID 30 days #60 tabs 06/14/24
Review of Systems
-
History Source: Patient
Constitutional: Reports Weight Loss (with CHF and diuresis )
EENT: Reports Other (dysphagia, odynophagia )
Respiratory: Reports Cough
Cardiac: Reports Chest Pain
: Reports Other (chronic st cath )
Musculoskeletal: Reports No Symptoms
Skin: Reports No Symptoms
Neurological: Reports No Symptoms
Endocrine: Reports No Symptoms
Hematologic/Lymphatic: Reports No Symptoms
Vital Signs
Temp Pulse Resp BP Pulse Ox
97.6 F 80 18 126/70 95
09/19/24 11:34 09/19/24 11:34 09/19/24 11:34 09/19/24 11:34 09/19/24 11:34
Physical Exam
Exam
General: Well Developed, Well Nourished and No Apparent Distress
HEENT: Normocephalic and Anicteric
Respiratory: Other (slight dry cough )
Cardiac: Regular Rhythm
GI: Soft, Non Tender and Non Distended
Musculoskeletal: No Clubbing and No Cyanosis
Skin: Warm and Dry
Neuro: Awake, Alert and AO x 3
Psych: Calm
Results
WBC 6.7 10^3/uL (4.8-10.8) 09/19/24 07:26
Hgb 9.4 g/dL (12.0-16.0) L 09/19/24 07:26
Hct 28.7 % (37.0-47.0) L 09/19/24 07:26
MCV 98.6 fL (81.0-99.0) 09/19/24 07:26
Plt Count 357 10^3/uL (130-400) 09/19/24 07:26
Absolute Neuts (auto) 3.2 10^3/uL (1.4-6.5) 09/18/24 08:41
Sodium 140 mmol/L (135-145) 09/19/24 07:26
Potassium 3.6 mmol/L (3.5-5.1) 09/19/24 07:26
Chloride 107 mmol/L (98-107) 09/19/24 07:26
Carbon Dioxide 26 mmol/L (22-30) 09/19/24 07:26
BUN 24 mg/dl (7-17) H 09/19/24 07:26
Creatinine 0.7 mg/dL (0.6-1.0) 09/19/24 07:26
Calcium 8.9 mg/dl (8.4-10.2) 09/19/24 07:26
Total Bilirubin 0.6 mg/dl (0.2-1.3) 09/16/24 07:19
AST 22 U/L (14-36) 09/16/24 07:19
ALT 18 U/L (0-35) 09/16/24 07:19
Alkaline Phosphatase 76 U/L (38-126) 09/16/24 07:19
Hepatitis C Antibody Negative (Negative) 09/17/24 08:02
Diagnostic Image Results:
Prior GI Procedures:
EGD: several years ago [place] +
Colonoscopy: last around ago 80 ? polyps [place]
Assessment / Plan
-
Pt is a 89yo with hx PE, PAF on Eliquis, HH with prior EGD, pancreatitis with multiple ERCP's 20 + years ago, CHF, PMR, sarcoidosis, neurogenic bladder/chronic urinary retention with st cath, HTN, hyperlipidemia, neurogenic bladder, GERD with
onset of congestion, nausea, with concern for PNA and CHF with some elevated troponin. Pt has been evaluated by speech with complaints of dysphagia with solids and globus sensation. In review with patient symptoms have gotten progressively worse.
First bit of solid is the worse with pain in chest and into back. Will feel like food stick for a period of time then goes down. Recalls EGD at [place] several years ago with HH but no dilation. + wt loss but some may be with diuresis with CHF.
She admits to GERD no medications, no nausea, vomiting, diarrhea, constipation or rectal bleeding.
-dysphagia with solids/odynophagia
-concern for PNA/CHF on admission
-hx Hiatal hernia
-PNA on admission
-mild anemia
-increased troponin on admission
-hx PE/PAF on Eliquis
other med problems:
-pancreatitis - gallstone related s/p jocelyn and multiple ERCP's in past
-PMR on chronic steroids
-sarcoidosis
-urinary retention with chronic st cath
-HTN
-hyperlipidemia
PLAN:
etiology of dysphagia/odynophagia with solids related to esophageal narrowing with stricture/HH, mass, vs motility issues
plan for Esophagram with barium tablet in AM- reviewed risk/benefits
can consider eventual EGD but current Eliquis use
add minced and moist to diet/strict NPO in AM - reviewed with patient
may benefit for PPI pending esophagram study with chronic GERD and steroids use
trend hbg
cont to treat PNA per med team
-
-
Thank you for consultation and allowing me to participate in the patient's care. Please call the sap business objects consultant GI physician during the after hours with any questions or concerns.
[2024-09-19 15:53] VITALS: BP 109/58
[2024-09-19] MEDS: CRESTOR 5 MG PO (17:07)
[2024-09-19] MEDS: PLAQUENIL 200 MG PO (17:07)
[2024-09-19 19:59] VITALS: BP 109/67
[2024-09-19] MEDS: CARDIZEM CD 180 MG PO (20:55)
[2024-09-19] MEDS: TOPROL XL 25 MG PO (20:56)
[2024-09-19] MEDS: NEURONTIN 600 MG PO (20:56)
[2024-09-19] MEDS: ULTRAM 25 MG PO (22:10)
[2024-09-19] MEDS: TUMS CHEWABLE TABLET 200 MG PO (22:41)
[2024-09-20] VITALS (10 sets, daily range): BP systolic 91–127; BP diastolic 56–85; PULSE 81–99; BMI 31.0
--- NOTE | 2024-09-20 00:54 | PTCARENOTE ---
AAO x 4. VSS. NSR with PVCs on the monitor. Patient with dry, nonproductive cough. Tessalon pearls administered per orders. Patient complains of moderate back pain--PRN tramadol administered for pain management. Strict NPO at midnight for
anticipated EGD, in the morning. Patient refused evening straight catheterization. Patient not retaining and voiding moderate to large amounts. No signs and/or symptoms of a urinary tract infection. OOB x 1 assist with a walker, walking in the room
and to the bathroom. All patient needs met. Bed in lowest position. Bed alarm is on. Call alston and personal belongings within reach.
[2024-09-20] MEDS: ROCEPHIN 1000 MG IV (01:45)
[2024-09-20] MEDS: STERILE WATER FOR INJECTION 10 ML IV (01:45)
--- NOTE | 2024-09-20 06:47 | W.PN.GI.CBS2 ---
Today's Communication / Plan
-
Please see assessment and plan for details.
Assessment / Plan
-
1. Dysphagia : Esophageal, likely secondary to Schatzki's ring, other etiologies including malignancy or dysmotility are not excluded though seem less likely. At this point we will wait barium esophagram. Pending those results may consider
endoscopy in the future for dilation once pulmonary status optimized and anticoagulation held.
Subjective
Subjective
Date of Service: September 20, 2024
Patient feeling okay, breathing is improving, no abdominal pain, no fevers or chills.
Objective
Data Reviewed
Laboratory Data:
Laboratory Results
Magnesium 1.6 mg/dl (1.6-2.3) 09/17/24 08:02
Total Bilirubin 0.6 mg/dl (0.2-1.3) 09/16/24 07:19
AST 22 U/L (14-36) 09/16/24 07:19
ALT 18 U/L (0-35) 09/16/24 07:19
Alkaline Phosphatase 76 U/L (38-126) 09/16/24 07:19
Vital Signs and I&O:
Vital Signs
Temp Pulse Resp BP Pulse Ox
97.3 F 75 18 127/73 98
09/20/24 03:22 09/20/24 03:22 09/20/24 03:22 09/20/24 03:22 09/20/24 03:22
I&O
09/18/24 09/19/24 09/20/24
06:59 06:59 06:59
Intake Total 1125 / 1125 960 / 960 1320 / 1320
Output Total 200 / 200
Balance 1125 / 1125 960 / 960 1120 / 1120
Physical Exam
Physical Exam
General: NAD
Abdomen: normal bowel sounds, soft, no tenderness, no masses or bruits, no ascites
[2024-09-20 08:32] LABS: Hematocrit 30.5 % (37.0-47.0); Hemoglobin 9.9 g/dL (12.0-16.0); Mean Corp Hgb Conc. 32.5 g/dL (33.0-37.0); Mean Corpuscular Hgb 32.1 pg (27.0-31.0); Mean Platelet Volume 9.1 fL (7.4-10.4); Platelet Count 420 10^3/uL (130-400); Red Blood Cell Count 3.08 10^6/uL (4.20-5.40); Red Cell Dist. Width 16.9 % (11.5-14.5); White Blood Cell Count 8.1 10^3/uL (4.8-10.8)
[2024-09-20] MEDS: LASIX 40 MG IV (08:41)
[2024-09-20 08:59] LABS: Blood Urea Nitrogen 26 mg/dl (7-17); Calcium 9.4 mg/dl (8.4-10.2); Carbon Dioxide 27 mmol/L (22-30); Chloride 105 mmol/L (98-107); Estimated Creatinine Clearance 49 ml/min; Glucose 77 mg/dl (70-99); Potassium 3.9 mmol/L (3.5-5.1); Sodium 141 mmol/L (135-145); eGFR > 60.00
[2024-09-20 09:37] LABS: Absolute Neutrophils -Man Diff 3.4 10^3/uL (1.4-6.5); Atypical Lymphocytes 1 %; Band Neutrophils 1 % (0-3); Lymphocytes 32 % (20-51); Monocytes 24 % (2-9); Myelocytes 1 % (-); Platelets Checked Yes; Segmented Neutrophils 41 % (42-75)
--- NOTE | 2024-09-20 09:37 | W.PN.CARDCBS ---
Addendum entered and electronically signed by Joseph Brody MD 09/20/24 17:40:
I saw and examined the patient.
The Rubber Goods Assembler's note was reviewed and I agree with the note.
Comment: Briefly, 89-year-old woman past medical history of heart failure with preserved ejection fraction who presents with dyspnea which is likely multifactorial in the setting of community-acquired pneumonia but also decompensated heart failure.
With IV diuresis she appears euvolemic on exam
Creatinine is stable
Weight is lowest on record
Transition to oral Lasix, 80 mg a.m., 40 mg p.m.
We will sign off, please recall as needed
Outpatient follow-up arranged
Plan to check outpatient BMP in 1 week
Original Note:
Today's Communication / Plan
-
Transition to PO lasix 80mg in AM, 40mg in PM.
BMP in 1 week as OP
Continue Eliquis, Toprol, Losartan, and Cardizem CD.
Follow up appointment has been arranged
Impression / Plan
-
PCP: Valentino Rush
Primary triage technician: Dr. Gamal Gardner
Impression:
Admitted with multifactorial SOB 09/15/24
Elevated Troponin
Possible community acquired PNA
Acute HFpEF
Mild to mod MR by echo 06/11/24
Mild peak/mean 21/11 mmHg
Paroxysmal atrial fibrillation
Chronic Eliquis OAC
Hypertension
Hyperlipidemia
h/o PE
Sarcoidosis with cardiac and lung involvement
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
Hypokalemia
Lexiscan nuclear stress test at [facility] 11/28/2023: No ischemia, EF 77%
Echo 11/03/2023: at [facility], EF 50%, mild cLVH, grade 2 diastolic dysfunction, moderate MR, mild , mild AI, mild to moderate TR, PASP 36, small pericardial effusion
ECHO 06/11/2024: EF 60%, mild to moderate MR, mild with peak/mean gradients 21/11 mmHg, IAN 1.6 cm2, trace TR, trace FL, small pericardial effusion
Echo 09/16/2024: EF 55 to 60%, mitral sclerosis without stenosis, trace MR, mild peak/mean 28/14 mmHg and IAN 1.5 cm sq, sinus of Valsalva 3.8 cm, normal ascending aorta, small pericardial effusion without evidence of hemodynamic compromise
Plan:
-Presented with SOB and cough. Admitted with possible pneumonia and acute heart failure.
-Diuresing with IV lasix 40mg BID. Weight down to 158 lbs on 09/20, down 5lbs this admission.
-Creat stable at 0.7. Will transition to PO lasix at higher dose 80mg in AM, 40mg in PM.
-Echo 09/16 noted preserved EF with mild as noted above.
-Lopressor transitioned to Toprol 25mg BID. Continues on losartan 50mg daily. BP stable.
-Known h/o paroxysmal atrial fibrillation. Remains in SR on review of telemetry. HR stable on Toprol and Cardizem.
-Continue Eliquis 5mg BID.
-Elevated troponin noted this admission, peaking at 0.155. Suspect nonischemic myocardial injury in the setting of acute heart failure and pneumonia. Last stress test from 11/2023 was without evidence of ischemia.
-Continue abx per primary service for pneumonia.
-Dysphagia noted and GI ordered barium esophagram which was done this AM. May consider endoscopy in the future.
-Continue rosuvastatin.
-Cardiology follow up arranged.
HPI: Patient came to ER yesterday with URI symptoms for the last 5 days and was admitted with possible PNA and acute HF with consultation to cardiology. Patient says that she started with symptoms of cough and congestion but also noticed
increased LE edema over the last 5 days. Interestingly she felt like her weight was going down. She came to the ER and after negative COVID and influenza screens was admitted with possible community-acquired pneumonia and acute HF. Her BNP was
2100. Her troponin was 0.155. She denies any chest pain. Patient says she has been compliant with her usual dose of Lasix 80 mg daily, but feels that her urine output volume has not been as high. Denies any increase in salt or fluid intake.
Progress Note - Brand Marketing Intern
Subjective
Date of Service: September 20, 2024
Tired. Breathing improving. No edema.
Objective
Labs:
09/20/24 07:22
09/20/24 07:22
Labs
Hgb 9.9 g/dL (12.0-16.0) L 09/20/24 07:22
Hct 30.5 % (37.0-47.0) L 09/20/24 07:22
Plt Count 420 10^3/uL (130-400) H 09/20/24 07:22
Sodium 141 mmol/L (135-145) 09/20/24 07:22
Potassium 3.9 mmol/L (3.5-5.1) 09/20/24 07:22
BUN 26 mg/dl (7-17) H 09/20/24 07:22
Creatinine 0.7 mg/dL (0.6-1.0) 09/20/24 07:22
Glucose 77 mg/dl (70-99) 09/20/24 07:22
Vital Signs and I&O:
Vital Signs
Temp Pulse Resp BP Pulse Ox
97.3 F 75 18 127/73 98
09/20/24 03:22 09/20/24 03:22 09/20/24 03:22 09/20/24 03:22 09/20/24 03:22
Vital Signs
Temp Pulse Resp BP Pulse Ox
97.3 F 75 18 127/73 98
09/20/24 03:22 09/20/24 03:22 09/20/24 03:22 09/20/24 03:22 09/20/24 03:22
Intake & Output
09/18/24 09/19/24 09/20/24 09/21/24
06:59 06:59 06:59 06:59
Intake Total 1125 / 1125 960 / 960 1320 / 1320
Output Total 200 / 200
Balance 1125 / 1125 960 / 960 1120 / 1120
Physical Exam
Physical Exam
GEN: No distress, awake, alert, oriented x3
HEENT: supple, anicteric, mmm
LUNGS: Few crackles at L base, otherwise CTA
CV: Reg, S1/S2, no murmur
EXT: No clubbing, cyanosis, or edema
NEURO: Gross non-focal
SKIN: Warm, dry, no rash
[2024-09-20 09:38] LABS: Acanthocytes 1+; Anisocytosis 1+; Hypochromasia 1+; Normal RBC Morphology No; Ovalocytes 1+; Polychromasia 1+; Total Cells Counted 100
[2024-09-20] MEDS: COZAAR 50 MG PO (11:08)
[2024-09-20] MEDS: MUCINEX 1200 MG PO ×2 (11:08→20:02)
[2024-09-20] MEDS: ELIQUIS 5 MG PO ×2 (11:08→20:02)
[2024-09-20] MEDS: TESSALON PERLES 200 MG PO ×3 (11:08→22:34)
[2024-09-20] MEDS: VIBRAMYCIN 100 MG PO ×2 (11:08→22:35)
[2024-09-20] MEDS: DELTASONE 5 MG PO (11:08)
[2024-09-20] MEDS: FOLVITE 1 MG PO (11:09)
[2024-09-20] MEDS: TOPROL XL 25 MG PO ×2 (11:09→20:02)
--- NOTE | 2024-09-20 13:09 | W.PN.HOSP.TC ---
Today's Communication/Plan
-
Monitor vital signs see plan
GI to decide regarding further intervention
Continue with diuresis
Will need SNF on discharge
Assessment / Plan
Assessment / Plan
General: Well Developed, Well Nourished and No Apparent Distress
HEENT: NormoCephalic, Moist mucous membranes and Atraumatic
Respiratory: Clear
Cardiac: S1/S2 and Regular Rhythm; No Murmur or Rub
GI: Soft, Non Tender, Non Distended and Normal Bowel Sounds
Musculoskeletal: No Edema
Skin: No Rash
Neuro: Nonfocal/grossly intact
Likely community-acquired pneumonia
-Clinically suggestive of pneumonia
-COVID and flu negative
-cw ceftriaxone/doxycycline
-Mucinex; added tessalon pearls
add acapella
sputum cx if able
given patient is still coughing; get speech eval, requested GI eval for possible esophageal source. GI following. barium esophogram 09/20. If Eliquis needs to be held for important GI procedure then it should be okay
#Acute on chronic HFpEF exacerbation
-Cardiac BNP of 2100
-Chest x-ray shows patchy parenchymal opacity within both lower lobes
-Check I's and O's, daily weight
- continue with diuresis per cardiology
-Cardiology following
echo 09/16 with EF 55 to 60%, aortic stenosis. No significant change
Nausea could be 2/2 abx
monitor; improving
abdominal imaging if doesnt improve
trial of zofran
# Elevated troponin, likely nonischemic myocardial injury
-monitor
-EKG shows sinus rhythm with premature atrial complexes,
# Hypokalemia
-Replete potassium
# Macrocytic anemia
monitor
Paroxysmal atrial fibrillation
-Continue Eliquis
-Continue diltiazem
History of pulmonary embolism
Essential hypertension
-Continue losartan
-Continue metoprolol
Polymyalgia rheumatica
-Continue hydroxychloroquine, methotrexate
Sarcoidosis
Hyperlipidemia
-Continue statin
Neurogenic bladder
-History catheterizes 3-4 times per day
GERD
DNR/DNI
DVT prophylaxis�Eliquis
PT rec SNF
Anticipated Discharge: 24 - 48 hours
Subjective/Interval History
-
Date of Service: September 20, 2024
Denies pain
Objective Data
-
Labs:
Laboratory Results
09/20/24
07:22
WBC 8.1
Hgb 9.9 L
Hct 30.5 L
Plt Count 420 H
Sodium 141
Potassium 3.9
Chloride 105
Carbon Dioxide 27
BUN 26 H
Creatinine 0.7
Glucose 77
Calcium 9.4
Vital Signs:
Vital Signs
Temp Pulse Resp BP Pulse Ox
97.6 F 79 20 114/71 98
09/20/24 11:00 09/20/24 11:08 09/20/24 11:00 09/20/24 11:08 09/20/24 11:00
I&O
09/19/24 09/20/24 09/21/24
06:59 06:59 06:59
Intake Total 960 / 960 1320 / 1320
Output Total 200 / 200
Balance 960 / 960 1120 / 1120
--- NOTE | 2024-09-20 13:35 | W.PN.UPDATE ---
Update Note
Progress Note Update
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 Discussed with her and her son, benefit of EGD is likely less given no specific stricture to dilate or suspicious mass. We
discussed dietary modifications, small, frequent meals, with hydration, maintaining upright position. Will hold on further GI workup for now. Will sign off for now, please call back with any further questions.
--- NOTE | 2024-09-20 14:51 | CM ---
PT recommended SNF; [facility] accepted referral pending bed availability when stable for DC
Plan: Discharge to SNF when medically stable
--- NOTE | 2024-09-20 16:05 | PTCARENOTE ---
patient straight caths self at home TID. pt was offered to be straight cathed 2 times today and pt reports 'i don't feel like it. i been peeing a lot' pt advised to let us know if she wanted/needed to be straight cathed.
[2024-09-20] MEDS: CRESTOR 5 MG PO (17:03)
[2024-09-20] MEDS: LASIX 40 MG PO (17:03)
[2024-09-20] MEDS: PLAQUENIL 200 MG PO (17:03)
[2024-09-20] MEDS: CARDIZEM CD 180 MG PO (22:32)
[2024-09-20] MEDS: ULTRAM 25 MG PO (22:32)
[2024-09-20] MEDS: NEURONTIN 600 MG PO (22:33)
[2024-09-21] VITALS (7 sets, daily range): BP systolic 97–132; BP diastolic 63–80; PULSE 76–106; BMI 30.7
[2024-09-21] MEDS: ROCEPHIN 1000 MG IV (02:52)
[2024-09-21] MEDS: STERILE WATER FOR INJECTION 10 ML IV (02:53)
--- NOTE | 2024-09-21 06:26 | PTCARENOTE ---
c/o midsternal pain/burning-states she feels like something is stuck. Gets this at home but not this bad. Has hx esophogeal stricture. States pain goes into shoulder and back and it's been this way all night . States at home she takes tums for
this. BP 138/71 HR 83. Sat 95% on RA. HOURLY SHIFT notified.
[2024-09-21] MEDS: TUMS CHEWABLE TABLET 200 MG PO (06:32)
[2024-09-21 06:44] LABS: Hematocrit 30.9 % (37.0-47.0); Mean Corp Hgb Conc. 32.4 g/dL (33.0-37.0); Mean Corpuscular Hgb 32.1 pg (27.0-31.0); Mean Platelet Volume 8.9 fL (7.4-10.4); Platelet Count 420 10^3/uL (130-400); Red Blood Cell Count 3.12 10^6/uL (4.20-5.40); Red Cell Dist. Width 16.6 % (11.5-14.5); White Blood Cell Count 9.1 10^3/uL (4.8-10.8)
[2024-09-21 07:03] LABS: Blood Urea Nitrogen 31 mg/dl (7-17); Calcium 9.2 mg/dl (8.4-10.2); Carbon Dioxide 29 mmol/L (22-30); Chloride 103 mmol/L (98-107); Estimated Creatinine Clearance 43 ml/min; Glucose 88 mg/dl (70-99); Potassium 3.6 mmol/L (3.5-5.1); Sodium 140 mmol/L (135-145); eGFR > 60.00
[2024-09-21] MEDS: MUCINEX PO ×2 (08:29→08:34)
[2024-09-21] MEDS: ELIQUIS 5 MG PO ×2 (08:30→20:19)
[2024-09-21] MEDS: COZAAR 50 MG PO (08:30)
[2024-09-21] MEDS: LASIX 80 MG PO (08:30)
[2024-09-21] MEDS: DELTASONE 5 MG PO (08:30)
[2024-09-21] MEDS: TESSALON PERLES 200 MG PO ×3 (08:30→21:51)
[2024-09-21] MEDS: FOLVITE 1 MG PO (08:30)
[2024-09-21] MEDS: TOPROL XL 25 MG PO ×2 (08:31→20:18)
[2024-09-21 08:50] LABS: Absolute Neutrophils -Man Diff 4.4 10^3/uL (1.4-6.5); Band Neutrophils 2 % (0-3); Lymphocytes 28 % (20-51); Monocytes 22 % (2-9); Myelocytes 1 % (-); Platelets Checked Yes; Segmented Neutrophils 47 % (42-75)
[2024-09-21 08:51] LABS: Anisocytosis Slight; Hypochromasia Slight; Normal RBC Morphology No; Ovalocytes Slight; Total Cells Counted 100
[2024-09-21] MEDS: VIBRAMYCIN 100 MG PO ×2 (10:14→21:50)
--- NOTE | 2024-09-21 13:04 | W.PN.HOSP.TC ---
Today's Communication/Plan
-
Monitor vital signs see plan
Continue with diuresis
Continue antibiotics
Hopeful discharge tomorrow
Assessment / Plan
Assessment / Plan
General: Well Developed, Well Nourished and No Apparent Distress
HEENT: NormoCephalic, Moist mucous membranes and Atraumatic
Respiratory: Clear
Cardiac: S1/S2 and Regular Rhythm; No Murmur or Rub
GI: Soft, Non Tender, Non Distended and Normal Bowel Sounds
Musculoskeletal: No Edema
Skin: No Rash
Neuro: Nonfocal/grossly intact
Likely community-acquired pneumonia
-Clinically suggestive of pneumonia
-COVID and flu negative
-cw ceftriaxone/doxycycline
-Mucinex; added tessalon pearls
add acapella
sputum cx if able
given patient is still coughing; get speech eval, requested GI eval for possible esophageal source. GI following. barium esophogram 09/20 with significant presbyesophagus and tertiary contractions. GI does not think there is any clear benefit of
EGD at this time. If Eliquis needs to be held for important GI procedure then it should be okay
#Acute on chronic HFpEF exacerbation
-Cardiac BNP of 2100
-Chest x-ray shows patchy parenchymal opacity within both lower lobes
-Check I's and O's, daily weight
- continue with diuresis per cardiology
-Cardiology following
echo 09/16 with EF 55 to 60%, aortic stenosis. No significant change
Nausea could be 2/2 abx
monitor; improving
abdominal imaging if doesnt improve
trial of zofran
# Elevated troponin, likely nonischemic myocardial injury
-monitor
-EKG shows sinus rhythm with premature atrial complexes,
# Hypokalemia
-Replete potassium
# Macrocytic anemia
monitor
Paroxysmal atrial fibrillation
-Continue Eliquis
-Continue diltiazem
History of pulmonary embolism
Essential hypertension
-Continue losartan
-Continue metoprolol
Polymyalgia rheumatica
-Continue hydroxychloroquine, methotrexate
Sarcoidosis
Hyperlipidemia
-Continue statin
Neurogenic bladder
-History catheterizes 3-4 times per day
GERD
DNR/DNI
DVT prophylaxis�Eliquis
PT rec SNF
Anticipated Discharge: Within 24 hours
Subjective/Interval History
-
Date of Service: September 21, 2024
Denies pain
Objective Data
-
Labs:
Laboratory Results
09/21/24
05:58
WBC 9.1
Hgb 10.0 L
Hct 30.9 L
Plt Count 420 H
Sodium 140
Potassium 3.6
Chloride 103
Carbon Dioxide 29
BUN 31 H
Creatinine 0.8
Glucose 88
Calcium 9.2
Vital Signs:
Vital Signs
Temp Pulse Resp BP Pulse Ox
97.6 F 82 18 124/63 94
09/21/24 11:00 09/21/24 11:00 09/21/24 11:00 09/21/24 11:00 09/21/24 11:00
I&O
09/20/24 09/21/24 09/22/24
06:59 06:59 06:59
Intake Total 1320 / 1320 0 / 0
Output Total 200 / 200
Balance 1120 / 1120 0 / 0
[2024-09-21] MEDS: CRESTOR 5 MG PO (17:28)
[2024-09-21] MEDS: LASIX 40 MG PO (17:28)
[2024-09-21] MEDS: PLAQUENIL 200 MG PO (17:28)
[2024-09-21] MEDS: MUCINEX 1200 MG PO (20:19)
[2024-09-21] MEDS: ULTRAM 25 MG PO (21:50)
[2024-09-21] MEDS: CARDIZEM CD 180 MG PO (21:51)
[2024-09-21] MEDS: NEURONTIN 600 MG PO (21:51)
[2024-09-22] MEDS: ROCEPHIN 1000 MG IV (01:52)
[2024-09-22] MEDS: STERILE WATER FOR INJECTION 10 ML IV (01:52)
[2024-09-22 03:33] VITALS: BP 119/70; BMI 30.8
[2024-09-22 06:00] VITALS: BMI 30.8
[2024-09-22 07:32] VITALS: BP 111/67; BP 114/64; BP 99/59; PULSE 76; PULSE 86; PULSE 99
[2024-09-22 07:58] LABS: % Basophils 0.9 % (0-2); % Eosinophils 1.3 % (0-6); % Immature Granulocytes 1.9 % (0-0.5); % Neutrophils 43.9 % (42.2-75.2); Absolute Basophils 0.1 10^3/uL (0-0.2); Absolute Eosinophils 0.1 10^3/uL (0-0.7); Absolute Immature Granulocytes 0.2 10^3/uL (0-0.05); Absolute Lymphocytes 2.6 10^3/uL (1.2-3.4); Absolute Monocytes 1.6 10^3/uL (0.1-0.6); Absolute Neutrophils 3.6 10^3/uL (1.4-6.5); Hematocrit 30.7 % (37.0-47.0); Hemoglobin 10.2 g/dL (12.0-16.0); Mean Corp Hgb Conc. 33.2 g/dL (33.0-37.0); Mean Corpuscular Hgb 32.6 pg (27.0-31.0); Mean Corpuscular Volume 98.1 fL (81.0-99.0); Mean Platelet Volume 8.9 fL (7.4-10.4); Nucleated Red Blood Cells % 0 %; Platelet Count 406 10^3/uL (130-400); Red Blood Cell Count 3.13 10^6/uL (4.20-5.40); Red Cell Dist. Width 16.3 % (11.5-14.5); White Blood Cell Count 8.2 10^3/uL (4.8-10.8)
[2024-09-22] MEDS: FOLVITE 1 MG PO (08:13)
[2024-09-22] MEDS: LASIX 80 MG PO (08:13)
[2024-09-22] MEDS: TOPROL XL 25 MG PO ×2 (08:13→19:49)
[2024-09-22] MEDS: MUCINEX 1200 MG PO ×2 (08:13→19:49)
[2024-09-22] MEDS: COZAAR 50 MG PO (08:13)
[2024-09-22] MEDS: TESSALON PERLES 200 MG PO ×3 (08:14→22:18)
[2024-09-22] MEDS: DELTASONE 5 MG PO (08:14)
[2024-09-22] MEDS: ELIQUIS 5 MG PO ×2 (08:14→19:49)
[2024-09-22 08:31] LABS: Blood Urea Nitrogen 30 mg/dl (7-17); Calcium 9.7 mg/dl (8.4-10.2); Carbon Dioxide 29 mmol/L (22-30); Chloride 102 mmol/L (98-107); Estimated Creatinine Clearance 43 ml/min; Glucose 78 mg/dl (70-99); Potassium 3.4 mmol/L (3.5-5.1); Sodium 139 mmol/L (135-145); eGFR > 60.00
--- NOTE | 2024-09-22 08:41 | PTCARENOTE ---
ORTHOSTATIC BLOOD PRESSURE: Patient sat and stood full 4 minutes before blood pressure was taken. Patient looked stable standing but then stated he was relieved to sit back down because she was getting tired.
[2024-09-22] MEDS: KCL ELIXIR 40 MEQ PO (08:57)
[2024-09-22] MEDS: VIBRAMYCIN 100 MG PO (09:05)
[2024-09-22] MEDS: DRISDOL (VITAMIN D2) 50000 UNITS PO (09:05)
--- NOTE | 2024-09-22 10:49 | CM ---
Chart reviewed and case management coordinator spoke with physician who would like to clear patient for discharge today, case management coordinator reached out to [facility] and spoke with Verónica and patient was not scheduled for admission today and therefore they cannot accept
per Verónica, message left with admissions for Monday to see if they can accept patient on Monday.
Plan; Skilled placement at [facility].
--- NOTE | 2024-09-22 11:22 | W.PN.HOSP.TC ---
Today's Communication/Plan
-
Monitor vital signs see plan
Pending SNF
Continue with diuresis
Finished antibiotics
Assessment / Plan
Assessment / Plan
General: Well Developed, Well Nourished and No Apparent Distress
HEENT: NormoCephalic, Moist mucous membranes and Atraumatic
Respiratory: Clear
Cardiac: S1/S2 and Regular Rhythm; No Murmur or Rub
GI: Soft, Non Tender, Non Distended and Normal Bowel Sounds
Musculoskeletal: No Edema
Skin: No Rash
Neuro: Nonfocal/grossly intact
Likely community-acquired pneumonia
-Clinically suggestive of pneumonia
-COVID and flu negative
Finished antibiotics
-Mucinex; added tessalon pearls
added acapella
sputum cx if able
given patient is still coughing; get speech eval, requested GI eval for possible esophageal source. GI following. barium esophogram 09/20 with significant presbyesophagus and tertiary contractions. GI does not think there is any clear benefit of
EGD at this time. If Eliquis needs to be held for important GI procedure then it should be okay
#Acute on chronic HFpEF exacerbation
-Cardiac BNP of 2100
-Chest x-ray shows patchy parenchymal opacity within both lower lobes
-Check I's and O's, daily weight
- continue with diuresis; now on PO lasix
-Cardiology following
echo 09/16 with EF 55 to 60%, aortic stenosis. No significant change
Nausea could be 2/2 abx
monitor; improving
abdominal imaging if doesnt improve
Intermittent use of Zofran
# Elevated troponin, likely nonischemic myocardial injury
-monitor
-EKG shows sinus rhythm with premature atrial complexes,
# Hypokalemia
-Replete potassium
# Macrocytic anemia
monitor
Paroxysmal atrial fibrillation
-Continue Eliquis
-Continue diltiazem
History of pulmonary embolism
Essential hypertension
-Continue losartan
-Continue metoprolol
Polymyalgia rheumatica
-Continue hydroxychloroquine, methotrexate
Sarcoidosis
Hyperlipidemia
-Continue statin
Neurogenic bladder
-History catheterizes 3-4 times per day
GERD
DNR/DNI
DVT prophylaxis�Eliquis
PT rec SNF. Discussed with field case manager, [facility]
Anticipated Discharge: Within 24 hours
Subjective/Interval History
-
Date of Service: September 22, 2024
Denies pain
Objective Data
-
Labs:
Laboratory Results
09/22/24
07:33
WBC 8.2
Hgb 10.2 L
Hct 30.7 L
Plt Count 406 H
Sodium 139
Potassium 3.4 L
Chloride 102
Carbon Dioxide 29
BUN 30 H
Creatinine 0.8
Glucose 78
Calcium 9.7
Vital Signs:
Vital Signs
Temp Pulse Resp BP Pulse Ox
97 F 76 20 111/67 94
09/22/24 07:32 09/22/24 08:13 09/22/24 07:32 09/22/24 08:13 09/22/24 07:32
I&O
09/21/24 09/22/24 09/23/24
06:59 06:59 06:59
Intake Total 0 / 0 960 / 960
Balance 0 / 0 960 / 960
[2024-09-22 11:40] VITALS: BP 98/54
[2024-09-22 15:12] VITALS: BP 108/63
[2024-09-22] MEDS: LASIX 40 MG PO (15:14)
[2024-09-22] MEDS: PLAQUENIL 200 MG PO (17:05)
[2024-09-22] MEDS: CRESTOR 5 MG PO (17:05)
[2024-09-22 19:30] VITALS: BP 110/74; BP 128/69; BP 88/60; PULSE 105; PULSE 98; PULSE 99
[2024-09-22] MEDS: ULTRAM 25 MG PO (22:18)
[2024-09-22] MEDS: NEURONTIN 600 MG PO (22:21)
[2024-09-22] MEDS: CARDIZEM CD 180 MG PO (22:26)
[2024-09-22 22:34] VITALS: BP 125/68
[2024-09-23 03:45] VITALS: BP 97/62
[2024-09-23 06:00] VITALS: BMI 29.8
[2024-09-23 07:00] VITALS: BP 79/52; BP 81/51; BP 99/60; PULSE 69; PULSE 87; PULSE 94
[2024-09-23 07:35] LABS: % Basophils 0.9 % (0-2); % Eosinophils 1.6 % (0-6); % Immature Granulocytes 2.3 % (0-0.5); % Lymphocytes 33.7 % (20.5-51.1); % Monocytes 18.9 % (1.7-9.3); % Neutrophils 42.6 % (42.2-75.2); Absolute Basophils 0.1 10^3/uL (0-0.2); Absolute Eosinophils 0.2 10^3/uL (0-0.7); Absolute Immature Granulocytes 0.2 10^3/uL (0-0.05); Absolute Lymphocytes 3.4 10^3/uL (1.2-3.4); Absolute Monocytes 1.9 10^3/uL (0.1-0.6); Absolute Neutrophils 4.3 10^3/uL (1.4-6.5); Hematocrit 31.4 % (37.0-47.0); Hemoglobin 10.1 g/dL (12.0-16.0); Mean Corp Hgb Conc. 32.2 g/dL (33.0-37.0); Mean Corpuscular Hgb 32.2 pg (27.0-31.0); Mean Platelet Volume 8.8 fL (7.4-10.4); Nucleated Red Blood Cells % 0.2 %; Platelet Count 428 10^3/uL (130-400); Red Blood Cell Count 3.14 10^6/uL (4.20-5.40); Red Cell Dist. Width 16.6 % (11.5-14.5); White Blood Cell Count 10.1 10^3/uL (4.8-10.8)
[2024-09-23 08:35] LABS: Blood Urea Nitrogen 33 mg/dl (7-17); Calcium 9.4 mg/dl (8.4-10.2); Carbon Dioxide 29 mmol/L (22-30); Chloride 103 mmol/L (98-107); Estimated Creatinine Clearance 34 ml/min; Glucose 77 mg/dl (70-99); Potassium 4.1 mmol/L (3.5-5.1); Sodium 140 mmol/L (135-145); eGFR 54.19
[2024-09-23 09:05] VITALS: BP 79/47; BP 86/61; BP 94/62; PULSE 101; PULSE 89
[2024-09-23] MEDS: COZAAR PO (09:12)
[2024-09-23] MEDS: DELTASONE 5 MG PO (09:15)
[2024-09-23] MEDS: TESSALON PERLES 200 MG PO (09:15)
[2024-09-23] MEDS: ELIQUIS 5 MG PO (09:15)
[2024-09-23] MEDS: FOLVITE 1 MG PO (09:15)
[2024-09-23] MEDS: LASIX 80 MG PO (09:15)
[2024-09-23] MEDS: MUCINEX 1200 MG PO (09:15)
[2024-09-23] MEDS: TOPROL XL 25 MG PO (09:16)
[2024-09-23 11:00] VITALS: BP 100/64
--- NOTE | 2024-09-23 12:13 | CM ---
Chart reviewed and patient has been accepted and there is a bed available at [facility] today, patient will need to go by w/c [place].
[facility]
Report [id number]
--- NOTE | 2024-09-23 12:55 | W.PN.HOSP.TC ---
Today's Communication/Plan
-
dc
Assessment / Plan
Assessment / Plan
89yo F with PMHX of paroxysmal Afib, PMR, sarcoidosis, neurogenic bladder on self cath, GERD, HTN, Hx of PE came with cough, managed for CAP and CHF exacerbation. Completed Abx. Lasix switched to BID: 80mg AM and 40mg PM. GI evaluated with barium
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 Medcially stable for d/c to rehab
A/P:
#CAP
With unspecified organism
COVID-19 and Influenza PCR neg
COmpleted Abx
Symptoms improving
No leukocytosis and afebrile
#Acute on chronic HFpEF exacerbation
#Non-ischemic myocardial injury
LAsix, daily weight, followed electrolytes
Cardio followed: outpatient f/u arranged
Echo: EF 55-60%, aortic stenosis, no significant change from prior
#Ambulatory dysfunction
2/2 deconditioning
PT/OT - rehab
#moderate lower thoracic/upper lumbar spine compression fracture
Tylenol
PT/OT
#Paroxysmal Afib
cont tele, Eliquis and rate control
#Hx of PE
on ELiquis
#Essential HTN
#PMR
#Sarcoidosis on prednisone
#Macrocytic anemia (menthtrexate-induced?)
#Neuropathy
#HLD
#neurogenic bladder
Cont home meds
add leucovorin
cont self-catheterizing
DVT ppx on ELiquis
DNR/DNI
I have spent at least 38min reviewing chart, test results, communication with consultants and providing direct patient care
Anticipated Discharge: Today
Subjective/Interval History
-
Date of Service: September 23, 2024
Objective Data
-
Labs:
Laboratory Results
09/23/24
06:55
WBC 10.1
Hgb 10.1 L
Hct 31.4 L
Plt Count 428 H
Sodium 140
Potassium 4.1
Chloride 103
Carbon Dioxide 29
BUN 33 H
Creatinine 1.0
Glucose 77
Calcium 9.4
Vital Signs:
Vital Signs
Temp Pulse Resp BP Pulse Ox
97.4 F 74 16 100/64 98
09/23/24 11:00 09/23/24 11:00 09/23/24 11:00 09/23/24 11:00 09/23/24 11:00
I&O
09/22/24 09/23/24 09/24/24
06:59 06:59 06:59
Intake Total 960 / 960 1190 / 1190
Balance 960 / 960 1190 / 1190
Review of Systems
-
History Source: Patient
All other systems: Reviewed and negative
Physical Exam
-
General: No Apparent Distress
HEENT: Normocephalic
Respiratory: Clear to Auscultation
GI: Soft, Nontender and Nondistended
Musculoskeletal: No Clubbing, No Cyanosis and No Edema
Skin: Warm
Neuro: Awake, Alert, Oriented and AO x 3
Psych: Calm
--- NOTE | 2024-09-23 13:02 | W.DCSUMMARY ---
Addendum entered and electronically signed by Karlo Taylor MD 09/23/24 13:23:
With low BP - will not add PM Lasix to avoid dehydration as patient was dizzy with ambulation and BP on lower limit of normal
Original Note:
Discharge Summary
Discharge Data
Date of Admission: 09/15/24
Date of Discharge: 09/23/24
-
Pending Results: No
Hospital Course
89yo F with PMHX of paroxysmal Afib, PMR, sarcoidosis, neurogenic bladder on self cath, GERD, HTN, Hx of PE came with cough, managed for CAP and CHF exacerbation. Completed Abx. Lasix switched to BID: 80mg AM and 40mg PM. GI evaluated with barium
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 Medcially stable for d/c to rehab
I have spent at least 38min reviewing chart, test results, communication with consultants and providing direct patient care
PAtient was managed for:
#CAP
#Acute on chronic HFpEF exacerbation
#Non-ischemic myocardial injury
#Ambulatory dysfunction
#moderate lower thoracic/upper lumbar spine compression fracture
#Paroxysmal Afib
#Hx of PE
#Essential HTN
#PMR
#Sarcoidosis on prednisone
#Macrocytic anemia (menthtrexate-induced?)
#Neuropathy
#HLD
Discharge Plan
-
Patient Disposition: Acute Rehab Facility
Discharge Diagnosis/Procedures: CHF, CAP
Condition: Fair
Diet: 2 Gram Sodium and Restrict fluids to 64 oz
Activity: As tolerated
Specialty Instructions: Weigh Daily- Call MD for wt gain/loss 3 lbs overnight/5 lbs in 1 week
Instructions: *DCA Heart Failure Instructions
Referrals:
Valentino Rush DO [Family Provider] -
Val Caldera PA-C [Specified Professional Personl] - 10/03/24 1:20 pm (You have a follow up visit with Dr. Gamal Gardner's PA, Val Caldera, at the [facility]. Please call with questions. )
Prescriptions:
New
furosemide 40 mg Tablet
40 mg PO DAILY@1600 Qty: 30 0RF
acetaminophen 325 mg Tablet
650 mg PO Q6HPRN PRN (Reason: mild pain/ fever>100.5F) Qty: 120 0RF
furosemide 80 mg Tablet
80 mg PO DAILY@0800 Qty: 30 0RF
metoprolol succinate 25 mg Tablet Extended Release 24 Hr
25 mg PO BID Qty: 60 0RF
leucovorin calcium 5 mg tablet
2.5 mg PO QWEEK Qty: 14 0RF
Continued
gabapentin [Neurontin] 600 MG tablet
600 mg PO HS
prednisone 5 MG tablet
5 mg PO DAILY
rosuvastatin 5 MG tablet
5 mg PO QPM
losartan 50 mg Tablet
50 mg PO DAILY
diltiazem HCl 180 mg Capsule,Extended Release 24 Hr
180 mg PO HS
ergocalciferol (vitamin D2) 1,250 mcg (50,000 unit) Capsule
1,250 mcg PO CASTILLO
hydroxychloroquine 200 mg Tablet
200 mg PO QPM
methotrexate sodium 2.5 mg Tablet
10 mg PO CASTILLO@0800
Eliquis 5 mg tablet
5 mg PO BID 30 Days Qty: 60 0RF
Discontinued
metoprolol tartrate 100 MG tablet
100 mg PO BID
furosemide [Lasix] 40 mg Tablet
80 mg PO DAILY
folic acid 1 mg Tablet
1 mg PO DAILY
Discharge Orders:
Discharge Patient (As Directed); Ordered 09/23/24
Ordered By: Karlo Taylor
Discharge Date and Time
Print Language: IRANIAN
[2024-09-23 15:00] VITALS: BP 97/55
--- NOTE | 2024-09-24 11:01 | W.HF.CON ---
Heart Failure
- LV Function
Left ventricular function study result: LV Ejection fraction >/= 50%
Ejection Fraction Percentage: 55-60
- ARNI
Patient already on ARNI: No
Heart Failure ARNI Not Indicated: LV Ejection Fraction >/= 40%
- ACEI/ARB
Patient already on ACEI/ARB: Yes
- Beta Lani
Patient already on Evidence Based Beta Lani: Yes
- Mineralocorticord Receptor Antagonist
Patient already on MRA: No
Heart Failure MRA Not Indicated: LV Ejection Fraction > 40%
- SGLT-2 Inhibitor
Patient already on SGLT-2 Inhibitor: No
Heart Failure SGLT-2 Inhibitor Not Indicated: LV Ejection Fraction >40%
- Afib Anticoagulation
Patient already on Anticoagulation for Afib: Yes
- NYHA CHF Classification
NYHA CHF Classification Level: Class III - Symptoms w/ min exertion, interferes w/ nml daily activity
- ACC/AHA Stage
ACC/AHA Stage: Stage C: Symptomatic Heart Failure
== END 2024-09-23 15:10 | DRG 193 ==
LOC: 4 WEST ACU 23:32
PROVIDERS: Emergency Medicine; Internal Medicine; ADMITTING PHYSICIAN Hospitalist; ATTENDING PHYSICIAN Internal Medicine; CONSULT PHYSICIAN Internal Medicine Gastroenterology; EMERGENCY PHYSICIAN Emergency Medicine; FAMILY PHYSICIAN Family Medicine; OTHER PHYSICIAN Internal Medicine Cardiovascular Disease
DX: J18.9 Pneumonia, unspecified organism (principal); I50.43 Acute on chronic combined systolic (congestive) and diastolic (congestive) heart failure; M48.56XA Collapsed vertebra, not elsewhere classified, lumbar region, initial encounter for fracture; I31.39 Other pericardial effusion (noninflammatory); I5A Non-ischemic myocardial injury (non-traumatic); I11.0 Hypertensive heart disease with heart failure; E87.6 Hypokalemia; D53.9 Nutritional anemia, unspecified; I48.0 Paroxysmal atrial fibrillation; Z79.01 Long term (current) use of anticoagulants; Z86.711 Personal history of pulmonary embolism; M35.3 Polymyalgia rheumatica; D86.9 Sarcoidosis, unspecified; N31.9 Neuromuscular dysfunction of bladder, unspecified; K21.9 Gastro-esophageal reflux disease without esophagitis; Z66 Do not resuscitate; Z79.52 Long term (current) use of systemic steroids; E78.00 Pure hypercholesterolemia, unspecified; G62.9 Polyneuropathy, unspecified; Z11.52 Encounter for screening for COVID-19; M06.9 Rheumatoid arthritis, unspecified; Z79.899 Other long term (current) drug therapy
CPT/HCPCS: 71046; 74221; 80048; 80053; 83735; 83880; 84484; 85025; 86803; 87070; 87205; 87340; 87389; 87502; 87811; 92526; 92610; 93005; 93306; 94640; 94760; 96374; 96375; 97116; 97162; 97166; 97530; 97535; 99285

== ENCOUNTER → 2024-09-26 11:08 | Outpatient (REF) | payer OTHER, MEDICARE, SELFPAY ==
[2024-09-26 11:38] LABS: % Basophils 1.1 % (0-2); % Eosinophils 1.9 % (0-6); % Immature Granulocytes 2.5 % (0-0.5); % Lymphocytes 29.8 % (20.5-51.1); % Neutrophils 44.7 % (42.2-75.2); Absolute Basophils 0.1 10^3/uL (0-0.2); Absolute Eosinophils 0.2 10^3/uL (0-0.7); Absolute Immature Granulocytes 0.3 10^3/uL (0-0.05); Absolute Neutrophils 4.5 10^3/uL (1.4-6.5); Hematocrit 27.7 % (37.0-47.0); Hemoglobin 8.9 g/dL (12.0-16.0); Mean Corp Hgb Conc. 32.1 g/dL (33.0-37.0); Mean Corpuscular Hgb 32.4 pg (27.0-31.0); Mean Corpuscular Volume 100.7 fL (81.0-99.0); Mean Platelet Volume 9.3 fL (7.4-10.4); Nucleated Red Blood Cells % 0 %; Platelet Count 404 10^3/uL (130-400); Red Blood Cell Count 2.75 10^6/uL (4.20-5.40)
[2024-09-26 11:47] LABS: Blood Urea Nitrogen 39 mg/dl (7-17); Calcium 9.3 mg/dl (8.4-10.2); Carbon Dioxide 26 mmol/L (22-30); Chloride 105 mmol/L (98-107); Glucose 73 mg/dl (70-99); Potassium 3.6 mmol/L (3.5-5.1); Sodium 140 mmol/L (135-145); eGFR 54.19
== END ==
LOC: OLABP 11:08
PROVIDERS: ATTENDING PHYSICIAN Family Medicine
DX: J18.9 Pneumonia, unspecified organism (principal); I50.33 Acute on chronic diastolic (congestive) heart failure; E87.6 Hypokalemia; I48.0 Paroxysmal atrial fibrillation; D86.9 Sarcoidosis, unspecified; E78.5 Hyperlipidemia, unspecified; M35.3 Polymyalgia rheumatica; I10 Essential (primary) hypertension; K21.9 Gastro-esophageal reflux disease without esophagitis; D64.9 Anemia, unspecified
CPT/HCPCS: 36415; 80048; 85025

== ENCOUNTER → 2025-03-06 10:34 | Outpatient (REF) | payer MEDICARE, SELFPAY ==
[2025-03-06 11:39] LABS: Hematocrit 29.9 % (37.0-47.0); Hemoglobin 9.8 g/dL (12.0-16.0); Mean Corp Hgb Conc. 32.8 g/dL (33.0-37.0); Mean Corpuscular Volume 96.8 fL (81.0-99.0); Nucleated Red Blood Cells % 0.2 %; Platelet Count 258 10^3/uL (130-400); Red Cell Dist. Width 17.1 % (11.5-14.5)
[2025-03-06 11:53] LABS: INR 1.60; PT 19.6 Sec (11.4-14.6)
[2025-03-06 12:15] LABS: ALT (SGPT) 27 U/L (0-35); AST (SGOT) 31 U/L (14-36); Albumin 4.2 g/dl (3.5-5.0); Alkaline Phosphatase 66 U/L (38-126); Blood Urea Nitrogen 33 mg/dl (7-17); Calcium 9.2 mg/dl (8.4-10.2); Carbon Dioxide 27 mmol/L (22-30); Chloride 103 mmol/L (98-107); Glucose 125 mg/dl (70-99); Magnesium 2.1 mg/dl (1.6-2.3); Potassium 3.7 mmol/L (3.5-5.1); Sodium 140 mmol/L (135-145); Total Protein 6.4 g/dl (6.3-8.2); eGFR > 60.00
== END ==
LOC: SDSPAT 10:34
PROVIDERS: ATTENDING PHYSICIAN Internal Medicine Cardiovascular Disease; FAMILY PHYSICIAN Family Medicine
DX: I48.0 Paroxysmal atrial fibrillation (principal)
CPT/HCPCS: 36415; 75572; 80053; 83735; 85025; 85610; 86850; 86900; 86901; 93005; Q9967

== ENCOUNTER 2025-03-20 18:50 | Emergency (ER) | payer MEDICARE, SELFPAY ==
[2025-03-20 18:53] VITALS: BP 125/66
[2025-03-20 19:34] LABS: Hematocrit 27.2 % (37.0-47.0); Hemoglobin 9.0 g/dL (12.0-16.0); Mean Corp Hgb Conc. 33.1 g/dL (33.0-37.0); Mean Corpuscular Volume 95.1 fL (81.0-99.0); Nucleated Red Blood Cells % 0 %; Platelet Count 249 10^3/uL (130-400); Red Cell Dist. Width 16.9 % (11.5-14.5)
[2025-03-20 19:57] LABS: Blood Urea Nitrogen 36 mg/dl (7-17); Calcium 7.9 mg/dl (8.4-10.2); Carbon Dioxide 26 mmol/L (22-30); Chloride 102 mmol/L (98-107); Glucose 152 mg/dl (70-99); Sodium 136 mmol/L (135-145); eGFR 53.85
[2025-03-20 20:50] VITALS: BMI 31.9
[2025-03-20 21:00] VITALS: BP 136/82
[2025-03-20 22:01] VITALS: BP 139/71
[2025-03-20] MEDS: TYLENOL 1000 MG PO (22:06)
--- NOTE | 2025-03-20 22:33 | ED.GENMED ---
History of Present Illness
General
Chief Complaint: Fall
Time Seen by Provider: 03/20/25 21:33
History of Present Illness
History of Present Illness:
89-year-old female with multiple comorbidities including CHF, A-fib on Eliquis, hypertension presenting to the emergency department after a fall. Patient notes chronic balance issues, was getting out of her car prior to arrival. She lost her
balance and her cane went under her foot and she fell to her left side. Does report head strike without loss of consciousness. Notes bruising and upper extremity. Reports history of multiple falls in the past. Does note some dizziness prior to
the fall. However denies chest pain or difficulty breathing. Denies fever or recent illness or additional acute medical complaints.
Past History
Past History
ED Past Medical History: Arrthythmia (irregular heart beat), HTN, Hypercholesterolemia and Other (Sarcoidosis, PMR, fibromyalgia, kidney tumor, cataracts, pancreatitis,, back pain, fractured vertebrae, rheumatoid arthritis, pulmonary emboli)
ED Past Surgical History: Appendectomy, Cholecystectomy, Orthopedic (back and hip surgery) and Other (Partial right nephrectomy, ERCP, cataract surgery)
Social History
Tobacco: Non-smoker
Alcohol: None
Drug: None
Personal:
Living: alone
Employment: Retired
Phy Exam
Physical Exam
Physical Exam:
General: Well-appearing, no clinical signs of dehydration
Head: atraumatic
HEENT: protecting airway
Neck: appears supple, no midline tenderness
CV: Normal heart rate, regular rhythm
Resp: No accessory muscle use, no increased work of breathing, lungs clear to auscultation bilaterally
Abd: No distention
Extremities: Ecchymosis to the left bicipital region with generalized tenderness in the elbow, range of motion intact. Generalized tenderness of the wrist with range of motion intact. Distal sensation and pulses intact. No significant swelling or
redness
Neuro: alert, no focal neurologic deficit
: deferred
Rectal: deferred
Psych: Normal affect
Skin: Intact
Course
Orders/Labs/Results
Orders:
Orders
03/20/25 18:56
Electrocardiogram (*1) Urgent
Reason for Study: Other
Other Reason for Exam: Possible Stroke
03/20/25 18:57
CT Head W/o Iv Contrast Urgent
Comment:
Reason For Exam: pain
EKG- Treatment ONCE
CR Elbow - Left Min 3 Views Urgent
Comment:
Reason For Exam: pain
CR Wrist - Left Min 3 Views Urgent
Comment:
Reason For Exam: pain
03/20/25 19:12
Basic Metabolic Panel Urgent
Complete Blood Count/With Diff Urgent
03/20/25 22:02
Acetaminophen [Tylenol] 1,000 mg PO NOW STA
Abnormal Lab Results
03/20/25
19:12
RBC 2.86 L 10^6/uL
(4.20-5.40)
Hgb 9.0 L g/dL
(12.0-16.0)
Hct 27.2 L %
(37.0-47.0)
MCH 31.5 H pg
(27.0-31.0)
RDW 16.9 H %
(11.5-14.5)
Abs Immat Gran (auto) 0.1 H 10^3/uL
(0-0.05)
Absolute Neuts (auto) 6.7 H 10^3/uL
(1.4-6.5)
Absolute Lymphs (auto) 1.1 L 10^3/uL
(1.2-3.4)
Absolute Monos (auto) 1.5 H 10^3/uL
(0.1-0.6)
Lymphocytes % 12.0 L %
(20.5-51.1)
Monocytes % 15.8 H %
(1.7-9.3)
BUN 36 H mg/dl
(7-17)
Glucose 152 H mg/dl
(70-99)
Calcium 7.9 L mg/dl
(8.4-10.2)
03/20/25 19:12
03/20/25 19:12
Vital Signs
Initial and Last Documented VS:
Initial Vital Signs
Temp Pulse Resp BP Pulse Ox
98 F 94 16 125/66 97
03/20/25 18:53 03/20/25 18:53 03/20/25 18:53 03/20/25 18:53 03/20/25 18:53
Last Documented Vital Signs
Temp Pulse Resp BP Pulse Ox
98 F 80 15 139/71 95
03/20/25 18:53 03/20/25 22:01 03/20/25 22:01 03/20/25 22:01 03/20/25 22:33
MDM/Problems Addressed
MDM/Problems Addressed:
89-year-old female with history of A-fib on Eliquis, CHF, hypertension presenting after a fall. Vital signs are normal.
On exam patient resting comfortably, no acute distress or discomfort. Patient does arrive with signs of trauma, some ecchymosis to the upper extremity with range of motion grossly intact. Distal sensation and pulses intact. No infectious
findings. GCS of 15, no significant signs of head trauma, however patient is on thinners, with positive head strike so will obtain CT brain imaging. No midline cervical neck tenderness. Does report some prodromal dizziness, however says that this
is chronic, frequent falls. EKG obtained on arrival, no arrhythmia or ischemia. Plan for laboratory analysis and hemodynamic monitoring.
22:50 - Patient's labs are unremarkable, baseline anemia. X-rays of the wrist and the elbow are negative for acute fracture or malalignment. CT brain is negative for acute process. Patient does note some increased lower extremity swelling to her
legs, known CHF on 120 mg of Lasix daily. No additional signs of volume overload, lungs clear to auscultation. Ultimately feel stable for discharge, however with interval follow-up with with her driver's license reviewing officer. Patient would prefer to go home and
son is at bedside, agrees stable for discharge home. Return precautions discussed and patient verbalized understanding
*Pulse Oximetry
SaO2: 95
Oxygen Mode of Delivery: Room air
Patient hypoxic: no
*EKG
Interpreted by ED Provider?: Yes
EKG Intrepretation Date: 03/20/25
EKG Intrepretation Time: 22:50
Interpretation: normal
Comparison EKG: no changes (03/06/25)
Heart Rate: 88
Rate: normal
Rhythm: sinus
[place]: left axis deviation
Interval: normal interval
QRS Pattern: normal QRS
Ischemia: no ischemia
*Critical Care Note
Total Time (30-74mins, 75-104mins- exclusive of procedures): Not Applicable
ED Attending Note
-
Portions of this chart may have been created with voice recognition software.� Occasional wrong word or��sound alike� substitutions may have occurred due to the inherent limitations of voice recognition software.
Discharge Plan
Departure
Patient Disposition: Home (Routine Discharge)
Date of Disposition: 03/20/25
Time of Disposition: 22:32
Patient with high blood pressure during this ER visit?: No
Condition: Good
Discharge Problem:
Fall, Contusion of arm, left
Instructions: Head Injury in Adults (DC), Contusion (DC), Preventing falls in adults
Prescriptions:
No Action
gabapentin [Neurontin] 600 MG tablet
600 mg PO HS
prednisone 5 MG tablet
5 mg PO DAILY
rosuvastatin 5 MG tablet
5 mg PO QPM
losartan 50 mg Tablet
100 mg PO DAILY
diltiazem HCl 180 mg Capsule,Extended Release 24 Hr
180 mg PO HS
ergocalciferol (vitamin D2) 1,250 mcg (50,000 unit) Capsule
1,250 mcg PO CASTILLO
hydroxychloroquine 200 mg Tablet
200 mg PO DAILY@1800
methotrexate sodium 2.5 mg Tablet
10 mg PO CASTILLO@0800
Eliquis 5 mg tablet
5 mg PO BID 30 Days Qty: 60 0RF
acetaminophen 325 mg Tablet
650 mg PO Q6HPRN PRN (Reason: mild pain/ fever>100.5F) Qty: 120 0RF
folic acid 1 mg Tablet
1 mg PO DAILY
Trimo-Gray 0.025 % Gel
1 ea VAGINAL MOWE
estradiol 0.01 % (0.1 mg/gram) cream
1 applic VAGINAL SUTU
Prolia 60 mg/mL Syringe
60 mg SC [id number]
furosemide 80 mg tablet
120 mg PO DAILY@0800
metoprolol succinate 25 mg tablet extended release 24 hr
100 mg PO BID
Referrals:
Valentino Rush DO [Family Provider, Family Practice]
Activity Restrictions/Additional Instructions:
You were seen in the emergency department for a fall
You were found to have reassuring laboratory analysis, EKG, CT imaging of your brain and x-rays of your upper extremity.
Please follow-up closely with your primary care physician as well as her driver's license reviewing officer.
Return to the emergency department for any worsening of your symptoms, or any development of chest pain, difficulty breathing, abdominal pain with persistent vomiting and inability to tolerate food or liquid by mouth (concern for dehydration),
weakness, headache or confusion, fever greater than 100.4, or any additional symptoms that are concerning to you.
Thank you for choosing [facility].
Interventions
Interventions:
*Risk Screen - Suicide Last Done: 03/20/25 18:53
*General Assessment Last Done: 03/20/25 20:51
*Neglect/Abuse Screening Last Done: 03/20/25 18:56
*ED- Fall Risk Assessment Last Done: 03/20/25 20:51
*ED COVID-19 Vaccine History Last Done: 03/20/25 20:51
*Nursing Disposition Last Done: 03/20/25 22:42
ED-Musculoskeletal Assessment Last Done: 03/20/25 20:52
ED- Neurological Assessment Last Done: 03/20/25 20:52
ED-Skin Assessment Last Done: 03/20/25 20:52
Discharge Date and Time
Discharge Date/Time: 03/20/25 22:44
Print Language: AMHARIC
== END 2025-03-20 22:44 | disposition home or self-care (01) ==
LOC: EMR 18:50
PROVIDERS: Emergency Medicine; EMERGENCY PHYSICIAN Student in an Organized Health Care Education/Training Program; FAMILY PHYSICIAN Family Medicine; REFERRING PHYSICIAN Internal Medicine Cardiovascular Disease
DX: S40.022A Contusion of left upper arm, initial encounter (principal); W19.XXXA Unspecified fall, initial encounter; Z91.81 History of falling; D64.9 Anemia, unspecified; R22.43 Localized swelling, mass and lump, lower limb, bilateral; I48.91 Unspecified atrial fibrillation; I11.0 Hypertensive heart disease with heart failure; I50.9 Heart failure, unspecified; E78.00 Pure hypercholesterolemia, unspecified; M06.9 Rheumatoid arthritis, unspecified; M79.7 Fibromyalgia; Z86.711 Personal history of pulmonary embolism; Z79.01 Long term (current) use of anticoagulants; Z90.5 Acquired absence of kidney
CPT/HCPCS: 99285; 70450; 73080; 73110; 80048; 85025; 93005

== ENCOUNTER 2025-04-02 10:23 | Day surgery (SDC) | payer MEDICARE, SELFPAY ==
[2025-03-06 11:13] VITALS: BMI 32.8
[2025-04-02] VITALS (28 sets, daily range): BP systolic 78–109; BP diastolic 47–85; BMI 32.8
--- NOTE | 2025-04-02 13:32 | ITS.CL.ABL ---
Insurance Sales Supervisor - Ablation
Ablation
Procedure Report:
ELECTROPHYSIOLOGIC STUDY AND POSSIBLE ABLATION
DATE: April 02, 2025
Primary Care Provider: Dr Valentino Rush
INDICATION:
Symptomatic Atrial Fibrillation.
Paroxysmal
HISTORY: See H and P.
Symptomatic AF, poorly controlled with attempted medical therapy.
Janelle has a past medical history of paroxysmal atrial fibrillation, HFpEF, mild , mild to moderate MR, hypertension, hyperlipidemia, prior PE, sarcoidosis with cardiac and lung involvement, and polymyalgia rheumatica.
She has had symptomatic recurrent atrial fibrillation which at times have been associated with decompensated heart failure with preserved ejection fraction. She presents now for EP study and ablation.
HAS-BLED: 1
Age
CHADSVASc: 5
HFpEF
HTN
Age
F Gender
PRESENTING RHYTHM: SR
HISTORY: See H and P.
Symptomatic AF, poorly controlled with attempted medical therapy.
ANTICOAGULATION: Eliquis 5 mg twice daily
'TIME-OUT': called and confirmed.
SEDATION/ANESTHESIA: provided via the anesthesia department using general anesthesia.
PROCEDURE:
Ultrasound Guidance with real-time visualization of needle insertion and vessel patency performed by me for femoral venous Vascular Access.
Under real-time US guidance, the needle was advanced with negative pressure into the vein. The needle was seen entering the vessel lumen with a good return of dark red flow, the syringe was removed, non-pulsatile, dark red blood low was noted and
the wire was passed without difficulty, then the needle was removed. US confirmed the wire was in the vein, not going into an artery,
Images were taken and saved for the patient's permanent record. Imaging findings typical femoral venous anatomy. Direct visualization of needle puncture into the femoral vein was observed and recorded.
3 sheaths were inserted into the right femoral vein.
10 Fr, 10Fr, 7 Fr a 10fr sheath was then exchanged for the 16.8 Fr Faradrive deflectable sheath and dilator over a wire.
A decapolar CS catheter was positioned within the CS for mapping and pacing.
The intracardiac ultrasound catheter was positioned in the RA for continuous intracardiac ultrasound imaging.
Heparin bolus and infusion to target ACT at 300 -350 seconds was administered. Transseptal puncture was performed. This entailed advancing a sheath with dilator into the superior vena cava and withdrawing both (monitoring intracardiac ultrasound,
fluoroscopy and tip pressure) with the tip oriented toward the atrial septum. The fossa ovalis was engaged (indicated by sudden displacement of the sheath tip as well as tenting of the fossa seen on intracardiac ultrasound).
The [employer] transseptal system was used. Left atrial catheter position was confirmed by echocardiographic imaging and fluoroscopy followed by RF delivery using the [employer] system resulting in successful LA access with pressure monitoring
demonstrating LA pressure waveforms (LA mean pressure 12 mm Hg). The sheath was advanced over the dilator and positioned in the left atrium.
The [employer] multipolar mapping catheter was initially positioned through the transseptal sheath for high density mapping.
Geometry and voltage mapping was performed using the [employer] multipolar grid catheter. Ensite-X was utilized for three-dimensional electroanatomical mapping.
A 3-D map was created using Ensite-X in Voxel mode. A 3-D reconstructed CT image was compared to the 3-D Navex map to assist in anatomic evaluation, mapping and ablation.
The [employer] PFA catheter and system was used for cardiac ablation. Catheter positioning was guided and confirmed using both I.C.E. and fluoroscopy.
Ablation strategy included PVI as well as mapping for extra PV contributors to atrial fibrillation which would also be targeted if present.
High density electroanatomical three-dimensional mapping demonstrated four PVs: LSPV, LIPV, RSPV, RIPV.
After accomplishing pulmonary venous isolation, mapping identified additional areas likely to be extra PV contributors to atrial fibrillation. These areas demonstrated patchy low voltage as well as complex fractionated electrograms. These areas can
be sites for the formation of rotors which can drive and maintain atrial fibrillation. These areas are known to be significant contributors to initiation and perpetuation of atrial fibrillation.
Additional energy applications/additional ablation sets targeted extra PV contributors to atrial fibrillation.
Targets for additional PFA ablation included:
LA posterior wall targeted with pulsed electric field energy isolating the posterior wall of the left atrium
After ablation of the posterior wall, additional targets were addressed:
LA inferior floor
These areas were ablated using pulsed electric field energy eliminating the extra PV contributors to atrial fibrillation.
Post ablation mapping finds entrance and exit block at each of the pulmonary veins, the LA posterior wall and at the additional line at the Inferior/floor of the LA rendering the sites no longer able to contribute to atrial fibrillation.
Programmed electrostimulation including burst atrial pacing as well the delivery of decremental extrastimuli down to atrial effective refractory period and no sustained arrhythmias could be induced.
I.C.E. :
Pre-Ablation Post-Ablation
LVEF: 55 % 55 %
WMA: no no
Pericardial effusion: none none
LA Pressure 12 14
COMPLICATIONS:
SUMMARY:
- Mapping and ablation to isolate the PVs resulting in electrical isolation of the pulmonary veins
- Additional AF ablation sets X 2 after PVI (LA posterior wall, Inf/floor of the LA posterior wall) resulting in elimination of the targeted extra PV contributors to atrial fibrillation.
- 3-D Electroanatomical Mapping
- Intracardiac Ultrasound
- Ultrasound guidance for vascular access
Post ablation, I discussed today's findings and results with the patient's daughter, Andrew.
RECOMMENDATIONS:
- Observe in monitored bed.
- Maintain oral anticoagulation.
- Office visit with Arin Gonsalves NP in 3 to 4 months.
Copy to:
Dr Valentino Rush
[2025-04-02 14:29] LABS: ACT-LR - POC 350 Seconds (116-155)
[2025-04-02 14:50] LABS: ACT-LR - POC 314 Seconds (116-155)
[2025-04-02] MEDS: TYLENOL 650 MG PO ×2 (15:52→22:12)
[2025-04-02] MEDS: CRESTOR 5 MG PO (18:17)
[2025-04-02] MEDS: PLAQUENIL 200 MG PO (18:18)
[2025-04-02] MEDS: ANESTHETIC LOZENGE 1 LOZENGE PO (18:23)
--- NOTE | 2025-04-02 19:15 | PTCARENOTE ---
Received patient from PACU when discharge was cancelled at 1730. Patient oriented to the room and plan of care, aware of activity restrictions. Right groin dressing is dry and intact, with DP pulse palpable, given cepacol abelardo for throat discomfort.
HOB elevated 30 degrees, daughter at the bedside, call alston in reach.
[2025-04-02] MEDS: TOPROL XL 100 MG PO (21:37)
[2025-04-02] MEDS: ELIQUIS 5 MG PO (21:37)
[2025-04-02] MEDS: NEURONTIN 600 MG PO (21:38)
--- NOTE | 2025-04-03 00:54 | PTCARENOTE ---
Pt. in NSR so far this shift, VSS. Right groin figure 8 suture clipped without difficulty, no oozing or hematoma, palpable pedal pulse present. Tylenol effective for right groin discomfort. Pt. OOB with assist x 1 to use bathroom, voiding without
difficult. Weak but gait steady, fall precautions maintained. Pt. resting quietly.
[2025-04-03 03:04] VITALS: BP 106/68
[2025-04-03] MEDS: TYLENOL 650 MG PO ×2 (03:44→09:14)
[2025-04-03 03:51] VITALS: BMI 32.3
[2025-04-03 04:20] LABS: Hematocrit 26.7 % (37.0-47.0); Hemoglobin 8.7 g/dL (12.0-16.0); Mean Corp Hgb Conc. 32.6 g/dL (33.0-37.0); Mean Corpuscular Volume 96.7 fL (81.0-99.0); Platelet Count 384 10^3/uL (130-400); Red Cell Dist. Width 16.1 % (11.5-14.5)
[2025-04-03 04:45] LABS: Blood Urea Nitrogen 40 mg/dl (7-17); Calcium 8.8 mg/dl (8.4-10.2); Carbon Dioxide 27 mmol/L (22-30); Chloride 102 mmol/L (98-107); Estimated Creatinine Clearance 25 ml/min; Glucose 163 mg/dl (70-99); Magnesium 1.8 mg/dl (1.6-2.3); Potassium 3.6 mmol/L (3.5-5.1); Sodium 137 mmol/L (135-145); eGFR 39.31
[2025-04-03 07:35] VITALS: BP 99/57
--- NOTE | 2025-04-03 08:06 | PTCARENOTE ---
Patient resting in bed this morning, offers no complaints, right groin dressing is dry and intact. Dr. Gardner in to see the patient. Notified of BP 99/57 with high doses of lasix, toprol and losartan scheduled for this morning. 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
adjust dosages.
[2025-04-03] MEDS: TOPROL XL PO (08:22)
[2025-04-03] MEDS: ELIQUIS 5 MG PO (09:13)
[2025-04-03] MEDS: DELTASONE 5 MG PO (09:13)
[2025-04-03] MEDS: TOPROL XL 50 MG PO (09:13)
[2025-04-03] MEDS: FLUZONE HIGH-DOSE 2025-26 0.5 ML IM (09:23)
--- NOTE | 2025-04-03 09:34 | W.PN.CARDCBS ---
Addendum entered and electronically signed by Javy Gardner MD 04/03/25 12:56:
Patient seen, interviewed and examined by me.
Well-appearing, no acute distress
Regular rate and rhythm with normal S1 and S2, no S3 no S4. There is a grade 1/6 apical holosystolic murmur and no rubs. PMI is normally placed.
Lungs are clear to auscultation bilaterally without wheezes rales or rhonchi.
Abdomen soft nontender nondistended with normoactive bowel sounds
Extremities show trace pretibial edema bilaterally no clubbing or cyanosis.
Right groin is soft, no hematoma, no bruits, there is +2 femoral as well as distal pulses.
Neurologic exam is grossly nonfocal.
Telemetry demonstrates sinus rhythm.
Remains overall hemodynamically stable. Blood pressure is borderline.
Discussed with patient as well as nursing, will reduce losartan from 100 to 50 mg daily. Additionally will reduce metoprolol from 100 mg twice daily to 50 mg twice daily.
She did have elevated left atrial pressure yesterday and therefore I recommended we continue diuretic therapy, Lasix 80 mg in the morning and 40 mg in the evening.
Stable for discharge to home today.
All of her questions have been answered.
Original Note:
Today's Communication / Plan
-
post ablation stable for d/c home
Impression / Plan
-
PCP: Valentino Rush DO
CDY: Javy Gardner MD
89 yo WF with past medical history of paroxysmal atrial fibrillation, HFpEF, mild , mild to moderate MR, hypertension, hyperlipidemia, prior PE, sarcoidosis with cardiac and lung involvement, and polymyalgia rheumatica.
She has had symptomatic recurrent atrial fibrillation which at times have been associated with decompensated heart failure with preserved ejection fraction. She presents now for EP study and ablation.
Impression:
Sypmtomatic paroxysmal atrial fibrillation
post PVI, PW ablation 04/02/25
HTN
HLD
Chronic HFpEF
LAFB
mild , mild-mod MR
Bilateral pulmonary embolism, 2019, of unknown cause.
Sarcoidosis with cardiac and pulmonary involvement.
CKD 3
GERD
Ambulatory dysfunction with history of falls.
Polymyalgia rheumatica.
Peripheral neuropathy.
Multilevel degenerative disc disease.
Compression fractures of T12, L1, and L2 vertebrae.
Rheumatoid arthritis.
Uterine prolapse with pessary and chronic UTI
Chronic macrocytic anemia.
Plan:
post ablation, groin soft slightly tender
tele SR no sig ectopy
BP on soft side o/n, she says she runs low, denies dizziness
OAC Eliquis
Stop Diltiazem and decrease metoprolol xl 50mg bid
Decrease losartan to 50mg starting tomorrow
Continue PO lasix 80am/40pm
Activity restrictions reviewed
f/u Dr. Yeung in 3 mo
home today
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
Subjective
Date of Service: April 03, 2025
denies cp, sob, dizziness
Objective
Labs:
04/03/25 03:20
04/03/25 03:20
Labs
Hgb 8.7 g/dL (12.0-16.0) L 04/03/25 03:20
Hct 26.7 % (37.0-47.0) L 04/03/25 03:20
Plt Count 384 10^3/uL (130-400) 04/03/25 03:20
Sodium 137 mmol/L (135-145) 04/03/25 03:20
Potassium 3.6 mmol/L (3.5-5.1) 04/03/25 03:20
BUN 40 mg/dl (7-17) H 04/03/25 03:20
Creatinine 1.3 mg/dL (0.6-1.0) H 04/03/25 03:20
Glucose 163 mg/dl (70-99) H 04/03/25 03:20
Vital Signs and I&O:
Vital Signs
Temp Pulse Resp BP Pulse Ox
98.4 F 73 20 99/57 96
04/03/25 07:35 04/03/25 08:22 04/03/25 07:35 04/03/25 08:22 04/03/25 07:35
Vital Signs
Temp Pulse Resp BP Pulse Ox
98.4 F 73 20 99/57 96
04/03/25 07:35 04/03/25 08:22 04/03/25 07:35 04/03/25 08:22 04/03/25 07:35
Intake & Output
04/01/25 04/02/25 04/03/25 04/04/25
06:59 06:59 06:59 06:59
Intake Total 1620 / 1620
Balance 1620 / 1620
Physical Exam
Physical Exam
NAD, AOX3
S1, S2, RRR, II/ NGOZI
CTAB, non laobred, no wheeze
SNTND BSx4
R fem site with old drainage, soft, mildly tender, no HT
--- NOTE | 2025-04-03 10:46 | W.DS.TRANS ---
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
-
Discharge Instructions:
Sleep Apnea Risk Intermediate
Discharge Diagnosis/Procedures Atrial fibrillation post ablation
Diet Low Cholesterol,Low Sodium
Driving Restrictions No driving for 24 hours
Instructions:
Stand-Alone Forms: DC Instructions- Cath/EP Lab
Changes to Home Medications: Yes
Discharge Medications:
DC Medications w/original date entered in [employer]
gabapentin 600 mg tablet (Neurontin) 600 mg PO HS 10/20/14
prednisone 5 mg tablet 5 mg PO DAILY sarcoidosis 10/20/14
rosuvastatin 5 mg tablet 5 mg PO HS 10/17/15
ergocalciferol (vitamin D2) 1,250 mcg (50,000 unit) capsule 1,250 mcg PO SA 06/17/23
hydroxychloroquine 200 mg tablet 200 mg PO QPM 06/17/23
methotrexate sodium 2.5 mg tablet 10 mg PO CASTILLO@0800 06/10/24
apixaban 5 mg tablet (Eliquis) 5 mg PO BID 30 days #60 tabs 06/14/24
acetaminophen 325 mg tablet 650 mg (2 x 325 mg) PO Q6HPRN PRN mild pain/ fever>100.5F #120 tabs 09/23/24
denosumab 60 mg/mL subcutaneous syringe (Prolia) 60 mg SC [id number] 03/05/25
estradiol 0.01% (0.1 mg/gram) vaginal cream 1 applic vaginal CASTILLO 03/05/25
folic acid 1 mg tablet 1 mg PO DAILY 03/05/25
furosemide 80 mg tablet 80 mg PO DAILY 03/05/25
oxyquinoline-boric acid 0.025 % vaginal gel 1 ea vaginal MOWE 03/05/25
furosemide 40 mg tablet 40 mg PO DAILY@1600 04/02/25
losartan 50 mg tablet 50 mg PO DAILY #1 tab 04/03/25
metoprolol succinate 50 mg tablet,extended release 24 hr 50 mg PO BID #1 tab 04/03/25
Home Medication Changes
decrease metoprolol and losartan
stopped diltiazem
Pending Results: No
--- NOTE | 2025-04-03 11:01 | PTCARENOTE ---
Reviewed discharge instructions with the patient and her daughter and they state their understanding. patient did not want her morning lasix until she got home due to her incontinence problem, but is aware that she should take it when she gets home.
Understands post restrictions, medication adjustments and that she should call for a follow up appointment. Patient discharged home with her daughter.
--- NOTE | 2025-04-03 11:19 | CM ---
Chart reviewed. Patient is independent of ADLS, lives alone in a 2 [address]TH, 1st level set up, 0 DME. Patient's daughter to stay with the patient for 2 weeks. Patient is not current with [facility], but is interested. Referral sent to [facility]. Plan is for
the patient to return home with [facility].
== END 2025-04-03 10:45 | disposition home or self-care (01) ==
LOC: CATH 10:23
PROVIDERS: Nurse Practitioner Adult Health; ATTENDING PHYSICIAN Internal Medicine Cardiovascular Disease; FAMILY PHYSICIAN Family Medicine
DX: I48.0 Paroxysmal atrial fibrillation (principal); I50.32 Chronic diastolic (congestive) heart failure; N18.30 Chronic kidney disease, stage 3 unspecified; I13.0 Hypertensive heart and chronic kidney disease with heart failure and stage 1 through stage 4 chronic kidney disease, or unspecified chronic kidney disease; Z79.01 Long term (current) use of anticoagulants
CPT/HCPCS: 80048; 83735; 85027; 85347; 86900; 86901; 90662; 93005; 93656; 93657; C1730; C1732; C1733; C1760; C1766; C1769; C1892; C1894; G0008

== ENCOUNTER → 2025-06-02 14:00 | Outpatient (REF) | payer MEDICARE, SELFPAY | LOC: RAD 14:00 | PROVIDERS: ATTENDING PHYSICIAN Internal Medicine Rheumatology | DX: M06.4 Inflammatory polyarthropathy (principal); M15.0 Primary generalized (osteo)arthritis | CPT/HCPCS: 73100; 73120 ==